=== PATIENT | female | born 1960 | race Caucasian/White ===

== ENCOUNTER → 2018-08-21 | Outpatient (CLI) | payer MEDICAID, SELFPAY ==
[2018-08-21 10:27] VITALS: BMI 26.4
[2018-08-24 16:21] LABS: HPV APTIMA, High Risk Negative (Negative)
== END | disposition home or self-care (01) ==
LOC: LABSPEC 12:36
PROVIDERS: Referring Provider Obstetrics & Gynecology; Visit Provider Obstetrics & Gynecology
DX: Z12.4 Encounter for screening for malignant neoplasm of cervix (principal)
CPT/HCPCS: 87624; 88175; G0145

== ENCOUNTER → 2019-11-26 13:49 | Outpatient (CLI) | payer MEDICAID, SELFPAY ==
[2018-08-21 10:27] VITALS: BMI 26.4
[2019-11-26 13:04] VITALS: BMI 26.4
--- NOTE | 2019-11-26 13:55 | BI_ITS ---
MAMMOGRAPHY - BILATERAL SCREENING REASON FOR EXAM: Female, 59 years old. Routine annual screening examination. PERTINENT HISTORY: Non-contributory. TECHNIQUE: Digital bilateral breast annette (3D mammographic acquisition) in the CC and MLO projections. 2-D mediolateral oblique (MLO) and craniocaudad (CC) views of both breasts were obtained. CAD: Full Field Digital Mammography with Computer Added Detection was performed. COMPARISON: Comparison is made with prior outside examination dated 06/07/2016. FINDINGS: Breast Composition: The breasts are heterogeneously dense, which may obscure small masses. There are no dominant masses or suspicious calcifications. Stable small benign-appearing bilateral axillary lymph nodes. No other significant abnormalities are identified. There has been no significant change since the prior study. BI/SCREEN MAMM (CAD) W/ANNETTE BILAT IMPRESSION: Stable bilateral screening mammogram. Yearly follow-up mammogram recommended. (A) ASSESSMENT CATEGORY: BIRADS Category 2: Benign. A letter regarding these results will be sent to the patient by the facility within 30 days. Approximately 10% of breast cancers are not detected by mammography. A normal mammogram should not delay biopsy of a clinically suspicious abnormality. [id number] Electronically Signed: Dev Matias, at 8:38 EDT , Service support ,
== END ==
PROVIDERS: Referring Provider Obstetrics & Gynecology; Visit Provider Obstetrics & Gynecology
DX: Z12.31 Encounter for screening mammogram for malignant neoplasm of breast (principal)
CPT/HCPCS: 77063; 77067

== ENCOUNTER → 2021-04-02 12:35 | Outpatient (CLI) | payer MEDICAID, SELFPAY ==
[2019-11-26 13:04] VITALS: BMI 26.4
--- NOTE | 2021-04-02 12:38 | BI_ITS ---
MAMMOGRAPHY - BILATERAL SCREENING REASON FOR EXAM: Female, 60 years old. Routine annual screening examination. PERTINENT HISTORY: Non-contributory. TECHNIQUE: Digital bilateral breast annette (3D mammographic acquisition) in the CC and MLO projections. 2-D mediolateral oblique (MLO) and craniocaudad (CC) views of both breasts were obtained. CAD: Full Field Digital Mammography with Computer Added Detection was performed. COMPARISON: Comparison is made with prior study 11/26/2019. FINDINGS: Breast Composition: There are scattered areas of fibroglandular density. There are no dominant masses or suspicious calcifications. No other significant abnormalities are identified. There has been no significant change since the prior study. BI/SCRN MAMM (CAD)W/ANNETTE BILAT IMPRESSION: Stable bilateral screening mammogram. Yearly follow-up mammogram recommended. (A) ASSESSMENT CATEGORY: BIRADS Category 1: Negative. A letter regarding these results will be sent to the patient by the facility within 30 days. Approximately 10% of breast cancers are not detected by mammography. A normal mammogram should not delay biopsy of a clinically suspicious abnormality. [id number] Electronically Signed: Dev Matias MD at 13:17 EST , Service support ,
[2021-04-02 14:09] LABS: Absolute Lymphocyte Count 1.63 X10^3/uL (0.83-4.51); Absolute Neutrophil Count 3.5 X10^3/uL (2.0-7.7); Basophil# 0.07 X10^3/uL; Basophil% 1.2 % (0-1); Eosinophil# 0.12 X10^3/uL; Hematocrit 39.8 % (37-47); Hemoglobin 12.9 g/dL (12.0-15.0); Lymphocyte # 1.63 X10^3/ul (0.83-4.51); Lymphocyte % 27.2 % (19-41); Mean Corp Hgb Conc 32.4 g/dL (32-36); Mean Corpuscular Hgb 28.9 pg (27.0-32.0); Mean Corpuscular Volume 89.2 fL (81-99); Mean Platelet Vol. 10.2 fl (6.2-12.0); Monocyte# 0.63 X10^3/uL; Monocyte% 10.5 % (0-10); NRBC Flagged by Analyzer 0 % (0-5); Neutrophil # 3.52 X10^3/uL (2.7-7.7); Neutrophil % 58.8 % (47-70); Platelet Count 272 K/mm3 (150-450); RBC Distribution Width CV 12.7 % (11.6-14.6); RBC Distribution Width SD 41.7 fl (35.1-43.9); Red Blood Count 4.46 M/mm3 (4.2-5.4)
[2021-04-02 14:33] LABS: AST(SGOT) 16 U/L (15-37); Alanine Aminotransfer ALT/SGPT 22 U/L (13-56); Albumin, Serum 3.8 g/dL (3.2-5.0); Alkaline Phosphatase 75 U/L (45-117); Anion Gap 3 (5-15); BUN 15 mg/dL (7-18); BUN/Creat Ratio 15.6 RATIO (10-20); Calcium,Total 9.2 mg/dL (8.5-10.1); Chloride 107 mmol/L (98-107); Cholesterol 250 mg/dL (200); Creatinine, Serum 0.96 mg/dL (0.55-1.02); EST Glomerular Filtration Rate 63 mL/min (>60); Est Glom Filt Rate - Afr Amer 77 mL/min (>60); Glucose 102 mg/dL (74-106); High Density Lipoprotein 47 mg/dL; Potassium 3.4 mmol/L (3.5-5.1); Protein, Total 7.8 g/dL (6.4-8.2); Sodium Level 139 mmol/L (136-145); Thyroid Stim Hormone (TSH) 1.44 uIU/mL (0.358-3.74); Triglycerides 166 mg/dL; Very Low Density Lipoprotein 33 mg/dL (5-40)
[2021-04-02 14:44] LABS: Vitamin D,25 Hydroxy 51.6 ng/mL
== END ==
PROVIDERS: Referring Provider Obstetrics & Gynecology; Visit Provider Obstetrics & Gynecology
DX: Z01.419 Encounter for gynecological examination (general) (routine) without abnormal findings (principal); Z12.31 Encounter for screening mammogram for malignant neoplasm of breast
CPT/HCPCS: 36415; 77063; 77067; 80053; 80061; 82306; 84443; 85025

== ENCOUNTER → 2022-06-03 | Outpatient (CLI) | payer MEDICAID, SELFPAY ==
--- NOTE | 2022-06-03 09:13 | BI_ITS ---
MAMMOGRAPHY - BILATERAL SCREENING REASON FOR EXAM: Female, 61 years old. Routine annual screening examination. PERTINENT HISTORY: Non-contributory. TECHNIQUE: Digital bilateral breast annette (3D mammographic acquisition) in the CC and MLO projections. 2-D mediolateral oblique (MLO) and craniocaudad (CC) views of both breasts were obtained. CAD: Full Field Digital Mammography with Computer Added Detection was performed. COMPARISON: Comparison is made with prior study of 01/01/2021 and 11/26/2019. FINDINGS: Breast Composition: There are scattered areas of fibroglandular density. There are no dominant masses or suspicious calcifications. There is a 6.1 mm x 5.3 mm well-defined nodule in the slightly upper medial aspect of the right breast. Correlation with ultrasound is recommended. Stable small benign-appearing bilateral axillary No other significant abnormalities are identified. BI/SCRN MAMM (CAD)W/ANNETTE BILAT IMPRESSION: 6.1 mm x 5.3 mm well-defined nodule in the slightly upper medial aspect of the right breast. Correlation with ultrasound is recommended. ASSESSMENT CATEGORY: BIRADS Category 0: Incomplete. Need additional imaging evaluation. A letter regarding these results will be sent to the patient by the facility within 30 days. Approximately 10% of breast cancers are not detected by mammography. A normal mammogram should not delay biopsy of a clinically suspicious abnormality. [id number] Electronically Signed: Dev Matias MD at 11:53 EST ,
[2022-06-03 09:35] LABS: Hemoglobin A1c 5.4 % (3.8-5.6)
[2022-06-03 09:54] LABS: Vitamin B12 1103 pg/mL (211-911)
[2022-06-03 09:55] LABS: Anion Gap 7 (5-15); BUN 23 mg/dL (7-18); BUN/Creat Ratio 21.5 RATIO (10-20); Calcium,Total 8.7 mg/dL (8.5-10.1); Chloride 103 mmol/L (98-107); Cholesterol 209 mg/dL (200); Creatinine, Serum 1.07 mg/dL (0.55-1.02); EST Glomerular Filtration Rate 56 mL/min (>60); Est Glom Filt Rate - Afr Amer 67 mL/min (>60); Ferritin 65 ng/mL (8-252); Glucose 102 mg/dL (74-106); High Density Lipoprotein 53 mg/dL; Iron 40 ug/dL (50-170); Iron Binding Capacity,Total 347 ug/dL (250-450); PERCENT IRON SATURATION 11.5 % (15.0-55.0); Potassium 3.7 mmol/L (3.5-5.1); Sodium Level 139 mmol/L (136-145); Triglycerides 145 mg/dL; Very Low Density Lipoprotein 29 mg/dL (5-40)
== END | disposition home or self-care (01) ==
PROVIDERS: Referring Provider Obstetrics & Gynecology; Visit Provider Obstetrics & Gynecology
DX: Z13.21 Encounter for screening for nutritional disorder (principal); N89.8 Other specified noninflammatory disorders of vagina; R25.2 Cramp and spasm; Z13.220 Encounter for screening for lipoid disorders; E66.9 Obesity, unspecified; N63.10 Unspecified lump in the right breast, unspecified quadrant
CPT/HCPCS: 36415; 77063; 77067; 80048; 80061; 82607; 82728; 83036; 83540; 83550; 87070; 87205

== ENCOUNTER → 2022-06-17 | Outpatient (CLI) | payer MEDICAID, SELFPAY ==
--- NOTE | 2022-06-17 10:51 | US_ITS ---
STUDY: ULTRASOUND BREAST - RIGHT REASON FOR EXAM: Female, 61 years old. Abnormal screening mammogram. TECHNIQUE: Axial and longitudinal images of the RIGHT breast were performed with a high resolution ultrasound transducer. # OF IMAGES: 34 COMPARISON: Comparison is made with prior study dated June 03, 2022. FINDINGS: RIGHT Breast: The medial aspect of the right breast was examined with ultrasound. There is evidence of retroareolar ductal dilatation. US/Breast Limited Unilateral IMPRESSION: Retroareolar ductal dilatation. ASSESSMENT CATEGORY: BIRADS Category 2: Benign. A letter regarding these results will be sent to the patient by the facility within 30 days. Electronically Signed: Dev Matias MD at 12:31 EST ,
== END | disposition home or self-care (01) ==
PROVIDERS: Visit Provider Obstetrics & Gynecology
DX: R92.8 Other abnormal and inconclusive findings on diagnostic imaging of breast (principal); N63.10 Unspecified lump in the right breast, unspecified quadrant
CPT/HCPCS: 76642

== ENCOUNTER → 2023-02-10 | Outpatient (CLI) | payer MEDICAID, SELFPAY ==
--- NOTE | 2023-02-10 15:07 | US_ITS ---
EXAM: US PELVIS TRANSABDOMINAL AND TRANSVAGINAL, COMPLETE CLINICAL INDICATION: PMB TECHNIQUE: Transabdominal and transvaginal pelvic ultrasound was performed with grayscale and color Doppler imaging. Transvaginal imaging was used for better evaluation of the endometrium and adnexa. COMPARISON: No relevant prior studies available. FINDINGS: UTERUS/CERVIX: The uterus measures 9.0 x 4.3 x 4.7 cm. The endometrium measures 4 mm. There is a trace amount of fluid within the endometrium. Anteverted. There is no uterine mass. RIGHT OVARY: The right ovary measures 2.3 x 2.0 x 2.0 cm. Blood flow is present in the right ovary. LEFT OVARY: The left ovary measures 2.2 x 1.7 x 1.4 cm. Blood flow is present in the left ovary. FREE FLUID: None. BLADDER: Unremarkable as visualized. Wall is normal thickness for degree of distention. US/Pelvic w/ Transvaginal IMPRESSION: Trace amount of fluid in the endometrium. No other acute abnormalities are identified. Electronically Signed: Roderick Rogers MD at 0:01 EDT ,
== END | disposition home or self-care (01) ==
LOC: US 15:07
PROVIDERS: PCP Internal Medicine; Referring Provider Obstetrics & Gynecology; Visit Provider Obstetrics & Gynecology
DX: N95.0 Postmenopausal bleeding (principal)
CPT/HCPCS: 76830; 76856

== ENCOUNTER → 2023-03-21 | Outpatient (CLI) | payer MEDICAID, SELFPAY ==
--- NOTE | 2023-03-21 | EMB_PTH ---
PATIENT: ARMANDO LONGO LOC: [facility] U#:[id number] AGE/SX: 62/F ROOM: RE03/21/[address]: MISHA Rivas : 1960 BED: DIS: 03/21/2023 SPEC #: [id number] RECD: 03/21/23 13:00 STATUS: ASHLEY REMaddi #: [id number] STACI: 03/21/23 00:[address]: Fernanda Kohli NP DEPT: SURGICAL PATHOLOGY RECD BY: Anderson Hernandez ENTERED: 03/21/23 13:04 SP TYPE: ENDOM BX/C BUD DR: Dr. Madeline Waters MD Tissues: A - Endometrium, NOS B - Endocervical Procedures: Surgery Specimen Level IV HEADER OPERATION: Endometrial biopsy / cervical polypectomy PRE-OP DIAGNOSIS: Fluid in endometrial canal/cervical polyp TISSUE SUBMITTED: A - Endometrial lining, B - Cervical polyp MICROSCOPIC DIAGNOSIS A. Endometrial biopsy: Proliferative endometrium. B. Cervical polyp, polypectomy: Inflamed benign ectocervical polyp. ALETHA:nona 03/22/2023 MICROSCOPIC DESCRIPTION Slides are reviewed. GROSS DESCRIPTION A - Received in fixative is one container labeled with the patient's name and designated endometrial lining. The specimen consists of multiple irregular fragments of pink mucoid tissue that in aggregate measure 3.0 x 2.5 x 0.2 cm. The specimen is totally submitted in one cassette. B - Received in fixative is one container labeled with the patient's name and designated cervical polyp. The specimen consists of a piece of harrell-pink polyp measuring 0.6 x 0.6 x 0.2 cm. The specimen is totally submitted in one cassette. / ALETHA:nona 03/21/2023 TC:5 [facility]: [id number] x2
== END | disposition home or self-care (01) ==
LOC: LABSPEC 11:32
PROVIDERS: PCP Internal Medicine; Referring Provider Nurse Practitioner Women's Health; Visit Provider Nurse Practitioner Women's Health
DX: N84.1 Polyp of cervix uteri (principal)
CPT/HCPCS: 88305

== ENCOUNTER → 2023-08-01 | Outpatient (CLI) | payer MEDICAID, SELFPAY ==
[2023-08-03 15:08] LABS: HPV APTIMA, High Risk Negative (Negative)
== END | disposition home or self-care (01) ==
LOC: LABSPEC 11:48
PROVIDERS: PCP Internal Medicine; Referring Provider Obstetrics & Gynecology; Visit Provider Obstetrics & Gynecology
DX: Z12.4 Encounter for screening for malignant neoplasm of cervix (principal); Z78.0 Asymptomatic menopausal state
CPT/HCPCS: 87624; 88175; G0145

== ENCOUNTER → 2023-09-08 | Outpatient (CLI) | payer MEDICAID, SELFPAY ==
--- NOTE | 2023-09-08 12:20 | BI_ITS ---
MAMMOGRAPHY - BILATERAL SCREENING 3-D TOMOSYNTHESIS REASON FOR EXAM: Female, 62 years old. breast cancer screening PERTINENT HISTORY: No significant family history. TECHNIQUE: 2-D mammograms and 3-D Tomosynthesis of the breast (s) were performed. CAD was performed. COMPARISON: 06/03/2022 FINDINGS: The breast composition is composed of scattered fibroglandular density. Scattered benign calcifications are seen. No dense spiculated masses or suspicious microcalcifications are identified. No architectural distortion is identified. There is no skin thickening or retraction. There has been no significant change since the prior study. BI/SCRN MAMM (CAD)W/ANNETTE BILAT IMPRESSION: No mammographic signs of malignancy. Routine yearly mammograms recommended. ASSESSMENT CATEGORY: BIRADS Category 1: Negative. A letter regarding these results will be sent to the patient by the facility within 30 days. FOLLOW UP RECOMMENDATION: Yearly follow up mammogram recommended. (A) Approximately 10% of breast cancers are not detected by mammography. A normal mammogram should not delay biopsy of a clinically suspicious abnormality. Electronically Signed: Daquan Ng MD at 17:39 EDT ,
== END | disposition home or self-care (01) ==
LOC: OPBI 12:20
PROVIDERS: PCP Internal Medicine; Referring Provider Obstetrics & Gynecology; Visit Provider Obstetrics & Gynecology
DX: Z12.31 Encounter for screening mammogram for malignant neoplasm of breast (principal)
CPT/HCPCS: 77063; 77067

== ENCOUNTER → 2024-09-25 | Outpatient (CLI) | payer MEDICAID, SELFPAY ==
--- NOTE | 2024-09-25 15:39 | BI_ITS ---
EXAM: SCRN MAMM (CAD)W/ANNETTE BILAT DATE: 09/25/2024 CLINICAL HISTORY: F, Age 63 y/o , SCREENING MAMMOGRAM BREAST CANCER RISK ASSESSMENT: Na TECHNIQUE: Bilateral screening digital breast tomosynthesis with 2D and 3D images. Computer aided detection. COMPARISON: Prior exam(s) were compared FINDINGS: TISSUE DENSITY: The breast tissue is heterogenously dense, which may obscure small masses. Bilateral Breast Mammographic Findings: No suspicious masses, calcifications or other abnormalities are identified. BI/SCRN MAMM (CAD)W/ANNETTE BILAT IMPRESSION: OVERALL FINAL ASSESSMENT: BIRADS 1 NEGATIVE RECOMMENDATION: Routine annual follow-up in 1 Year A letter with findings and recommendations will be mailed to the patient. Reading Location: [id number]
== END | disposition home or self-care (01) ==
PROVIDERS: PCP Internal Medicine; Referring Provider Obstetrics & Gynecology; Visit Provider Obstetrics & Gynecology
DX: Z12.31 Encounter for screening mammogram for malignant neoplasm of breast (principal)
CPT/HCPCS: 77063; 77067

== ENCOUNTER → 2025-01-14 | Outpatient (CLI) | payer MEDICAID, SELFPAY ==
--- NOTE | 2025-01-14 | EMB_PTH ---
PATIENT: ARMANDO LONGO LOC: [facility] U#:[id number] AGE/SX: 64/F ROOM: RE01/14/[address]: Dr. Suki Flores MD : 1960 BED: DIS: 01/14/2025 SPEC #: [id number] RECD: 01/14/25 12:22 STATUS: ASHLEY REMaddi #: [id number] STACI: 01/14/25 00:[address]: Suki Flores DEPT: SURGICAL PATHOLOGY RECD BY: Rene Alberto ENTERED: 01/14/25 13:19 SP TYPE: ENDOM BX/C BUD DR: Dr. Madeline Waters MD Tissues: A - Endometrium, NOS Procedures: Surgery Specimen Level IV HEADER OPERATION: Endometrial biopsy PRE-OP DIAGNOSIS: Post menopausal bleeding TISSUE SUBMITTED: A- Endometrial tissue MICROSCOPIC DIAGNOSIS A. Endometrium, biopsy: * Fragments of proliferative endometrium. MICROSCOPIC DESCRIPTION Slides are reviewed. GROSS DESCRIPTION A. Received in formalin labeled the patient's name and date of is a 1.9 x 0.8 x 0.1 cm aggregate of mucoid material admixed with flecks of red apparent tissue. Entirely submitted in 1 cassette. Entirety of the specimen entirety of the specimen may not survive processing. [place] 01/14/2025 CPT:28399
--- NOTE | 2025-01-14 | EMB_PTH ---
PATIENT: ARMANDO LONGO LOC: [facility] U#:[id number] AGE/SX: 64/F ROOM: RE01/14/[address]: Dr. Suki Flores MD : 1960 BED: DIS: 01/14/2025 SPEC #: [id number] RECD: 01/14/25 12:22 STATUS: ASHLEY REMaddi #: [id number] STACI: 01/14/25 00:[address]: Suki Flores DEPT: SURGICAL PATHOLOGY RECD BY: Rene Alberto ENTERED: 01/14/25 13:19 SP TYPE: ENDOM BX/C BUD DR: Dr. Madeline Waters MD Tissues: A - Endometrium, NOS Procedures: Surgery Specimen Level IV HEADER OPERATION: Endometrial biopsy PRE-OP DIAGNOSIS: Post menopausal bleeding TISSUE SUBMITTED: A- Endometrial tissue MICROSCOPIC DIAGNOSIS A. Endometrium, biopsy: * Fragments of proliferative endometrium. MICROSCOPIC DESCRIPTION Slides are reviewed. GROSS DESCRIPTION A. Received in formalin labeled the patient's name and date of is a 1.9 x 0.8 x 0.1 cm aggregate of mucoid material admixed with flecks of red apparent tissue. Entirely submitted in 1 cassette. Entirety of the specimen entirety of the specimen may not survive processing. AK 01/14/2025 CPT:14842
[2025-01-14 12:29] LABS: Hematocrit 38.6 % (37-47); Hemoglobin 12.7 g/dL (12.0-15.0); Immature Granulocytes Count 0.030 X10^3/uL (0.0-0.0); Mean Corp Hgb Conc 32.9 g/dL (32-36); Mean Corpuscular Volume 91.7 fL (81-99); Mean Platelet Vol. 11.0 fl (6.2-12.0); NRBC Flagged by Analyzer 0 % (0-5); Platelet Count 230 K/mm3 (150-450); RBC Distribution Width CV 12.9 % (11.6-14.6); RBC Distribution Width SD 42.8 fl (35.1-43.9); Red Blood Count 4.21 M/mm3 (4.2-5.4); White Blood Count 5.7 K/mm3 (4.4-11.0)
[2025-01-14 13:33] LABS: Cholesterol 170 mg/dL (<=200); Low Density Lipoprotein Calc. 99 mg/dL; Triglycerides 90 mg/dL; Very Low Density Lipoprotein 18 mg/dL (5-40); cholesterol:hdl ratio screen 3.19
== END | disposition home or self-care (01) ==
PROVIDERS: PCP Internal Medicine; Referring Provider Obstetrics & Gynecology; Visit Provider Obstetrics & Gynecology
DX: N95.0 Postmenopausal bleeding (principal); R25.2 Cramp and spasm; N95.1 Menopausal and female climacteric states; Z13.29 Encounter for screening for other suspected endocrine disorder; Z13.1 Encounter for screening for diabetes mellitus; Z13.220 Encounter for screening for lipoid disorders
CPT/HCPCS: 36415; 80061; 83036; 84443; 85025; 88305

== ENCOUNTER → 2025-02-01 | Outpatient (CLI) | payer MEDICAID, SELFPAY ==
--- NOTE | 2025-02-01 16:00 | US_ITS ---
PROCEDURE: PELVIC W/ TRANSVAGINAL 02/01/2025 REASON FOR EXAM: PMB TECHNIQUE: Procedure Code: USPELTVAG Modality: US Procedure: PELVIC W/ TRANSVAGINAL COMPARISON: None FINDINGS: Measurements: Uterus: 8.7 x 5.1 x 4.0 with a volume of 94 mL Endometrial Thickness: 5 mm Right Ovary: Not visualized due to bowel gas obscuring this region. No abnormal right adnexal masses are noted. Left Ovary: 3.2 x 1.6 x 1.6 with a volume of 4.3 mL. Uterus: There is a hypoechoic mass within the myometrium measuring 7 x 6 x 6 mm. This is most compatible with a uterine fibroid. There is no IUD. Size, contour and echogenicity otherwise are within normal limits. Nabothian cysts are seen within the cervix. Endometrium: Endometrium measures 5 mm. It is hyperechoic. Right ovary: Not visualized due to bowel gas. No abnormal right adnexal masses are noted. Left ovary: Size, contour and echogenicity are within normal limits. No ovarian masses are noted. There is blood flow within the ovary. Cul-de-sac: There is no free fluid in the cul-de-sac. Other: Urinary bladder measures 7.0 x 4.6 x 3.9 cm. Bladder wall thickness measures 2 mm. Urinary bladder volume measures 66 mL. There are no filling defects or masses seen within the urinary bladder. US/Pelvic w/ Transvaginal IMPRESSION: 1. There appears to be a uterine fibroid within the myometrium. 2. Endometrial stripe thickness measures 5 mm which is within normal limits. 3. Normal appearance to the left ovary. 4. Right ovary not visualized due to bowel gas. RECOMMENDATION: The patient has not had a recent Pap smear and physical exam, a nd may be of benefit to have this performed. If the bleeding continues, endometrial biopsy and/or surgical consult is also chcio mmended. Reading Location: [id number]
--- NOTE | 2025-02-01 16:00 | US_ITS ---
PROCEDURE: PELVIC W/ TRANSVAGINAL 02/01/2025 REASON FOR EXAM: PMB TECHNIQUE: Procedure Code: USPELTVAG Modality: US Procedure: PELVIC W/ TRANSVAGINAL COMPARISON: None FINDINGS: Measurements: Uterus: 8.7 x 5.1 x 4.0 with a volume of 94 mL Endometrial Thickness: 5 mm Right Ovary: Not visualized due to bowel gas obscuring this region. No abnormal right adnexal masses are noted. Left Ovary: 3.2 x 1.6 x 1.6 with a volume of 4.3 mL. Uterus: There is a hypoechoic mass within the myometrium measuring 7 x 6 x 6 mm. This is most compatible with a uterine fibroid. There is no IUD. Size, contour and echogenicity otherwise are within normal limits. Nabothian cysts are seen within the cervix. Endometrium: Endometrium measures 5 mm. It is hyperechoic. Right ovary: Not visualized due to bowel gas. No abnormal right adnexal masses are noted. Left ovary: Size, contour and echogenicity are within normal limits. No ovarian masses are noted. There is blood flow within the ovary. Cul-de-sac: There is no free fluid in the cul-de-sac. Other: Urinary bladder measures 7.0 x 4.6 x 3.9 cm. Bladder wall thickness measures 2 mm. Urinary bladder volume measures 66 mL. There are no filling defects or masses seen within the urinary bladder. US/Pelvic w/ Transvaginal IMPRESSION: 1. There appears to be a uterine fibroid within the myometrium. 2. Endometrial stripe thickness measures 5 mm which is within normal limits. 3. Normal appearance to the left ovary. 4. Right ovary not visualized due to bowel gas. RECOMMENDATION: The patient has not had a recent Pap smear and physical exam, a nd may be of benefit to have this performed. If the bleeding continues, endometrial biopsy and/or surgical consult is also chico mmended. Reading Location: [id number]
--- OUTSIDE RECORDS SUMMARY | 2025-02-01 16:08 | XMS RPT_ITS | CCD ---
Author Organization [facility] Care Team Providers Care Dietetic Technician Name Role Phone Free, Text Entry Unavailable Unavailable Lamont, Bailey Unavailable Unavailable Care Physician, No Primary Primary Care Provider Unavailable Care Physician, No Primary Referring Provider Un available Dr. Suki Flores Attending Provider [phone] Joe Waters MD Primary Care Provider JIMI OLIVERA Attending Unavailable JOE WATERS Primary Care Unavailable MICHAEL, LUCIO P Referring Unavailable JOE WATERS Primary Care Unavailable MICHAEL, LUCIO P Referring Unavailable MICHAEL, LUCIO P Attending Unavailable LAINE HAYDEN Attending Unavailable JOE WATERS Primary Care Unavailable MICHAEL, LUCIO P Referring Unavailable MICHAEL, LUCIO P Attending Unavailable Dr. Joe Waters Primary Care Provider Dr. Joe Waters Referring Provider Kamilla MLT, MLT-C Fernanda Attending Provider [phone] Dr. Joe Waters Primary Care Provider Dr. Joe Waters Referring Provider Dr. Suki Flores Attending Provider [phone] Dr. Joe Waters MD Primary Care Provider Dr. Joe Waters MD Referring Provider [phone] Dr. Suki Flores MD Attending Provider Dr. Suki Flores MD Referring Provider Dr. Joe Waters MD Primary Care Physician Dr. Suki Flores MD Attending Physician Evelin OCAMPO, Dr. Joe Muse Referring Provider [phone] Kamilla MLT-C, Fernanda Attending Physician [phone] Suki Flores Attending Unavailable Suki Flores Referring Unavailable Talampas, Joe D Primary Care Unavailable Kamilla MLT, Fernanda Attending Unavailable Kamilla MLT, Fernanda Referring Unavailable Talampas, Joe D Primary Care Unavailable Suki Flores Attending Unavailable Suki Flores Referring Unavailable Talampas, Joe D Primary Care Unavailable Kamilla MLT, Fernanda Attending Unavailable Talampas, Joe D Primary Care Unavailable Talampas, Joe D Referring Unavailable Talampas, Joe D Referring Unavailable Suki Flores Attending Unavailable Sunilampandrew, Joe D Primary Care Unavailable Allergies Allergy Classification Reported Allergen(s) Allergy Type Date of Onset Reaction(s) Facility (9 sources) Codeine; Translations: [CODEINE] Drug Allergy 5 Shortness of Breath, Other: See Comments [facility] (1 source) Sulfonamides (Antibiotic) Hives/Urticaria [facility] (7 sources) Sulfonamides (Antibiotic); Translations: [SULFA (SULFONAMIDE ANTIBIOTICS)] Allergy to substance 5 Unknown [facility] (1 source) Sulfonamides (Antibiotic) Drug Allergy 5 Other: See Comments, Hives [facility] Work Phone: (2 sources) traMADol; Translations: [TRAMADOL] Drug Allergy 3 Itching [facility] Work Phone: (1 source) Codeine Drug Allergy 5 [facility] (1 source) Sulfonamides (Antibiotic) Drug allergy (disorder) 5 [facility] Medications Current Medications Medication Drug Class(es) Dates Sig (Normalized) Sig (Original) amoxicillin 875 mg / clavulanate 125 mg oral tablet (1 source) Penicillin-class Antibacterial Start: 02-13-2021 End: 02-22-2021 take 1 tablet by mouth twice daily at mealtime amoxicillin-clavu lanate 875 mg-125 mg oral tablet ; 1 tab(s) orally 2 times a day Quantity: 20 Refills: 0 Ordered: 13-Feb-2021 Bailey Miguel Start: 13-Feb-2021 End: 22-Feb-2021 Generic Substitution Allowed Comments: Finish all this medication unless otherwise directed by prescriber.Take with food or milk. Comment on above: Finish all this medi cation unless otherwise directed by prescriber.Take with food or milk. calcium carbonate 1500 mg / cholecalciferol 500 unt oral capsule (7 sources) Vitamin D Start: 04-02-2021 Start: 04-02-2021 Calcium Carbon ate-Vitamin D3 (Calcium 600 With Vitamin D3) 600 mg(1,500mg) -500 unit capsule Active CAP PO April 02, 2021 1:00am Start: 01-27-2009 calcium carbon ate/vitamin d3(CALCIUM 600 + D(3) 600 MG-125 UNIT TAB) Take one(1) tablet twice daily. 0 01/27/2009 Active Comment on above: Take one(1) tablet t wice daily. fluticasone propionate 0.05 mg/actuat metered dose nasal spray (1 source) Corticosteroid Start: 02-14-20 End: 02-23-20 21 take 1-2 spray(s) nasal route once daily Flonase 50 mcg/inh nasal spray ; 1-2 spray(s) in each nostril once a day Quantity: 1 Refills: 0 Ordered: 13-Feb-2021 Bailey Miguel Start: 13-Feb-2021 End: 22-Feb-2021 Generic Substitution Allowed Comments: For the nose.It is very important that you take or use this exactly as directed. Do not skip doses or discontinue unless directed by your doctor. Comment on above: For the nose.It is v dawna important that you take or use this exactly as directed. Do not skip doses or discontinue unless directed by your doctor. multivitamin,tx-iron -minerals (4 sources) Start: 11-26-19 take 1 tablet by mouth once daily multivitamin,tx-iron -minerals Active 1 TABLET PO DAILY November 26, 2019 12:00am Start: 11-26-2019 take 1 tablet by drew th once daily multivitamin,mp-dqaz-oqfbgilf Active 1 T ABLET PO DAILY November 25, 2019 11:00pm Multivitamin,Gn-Cyjn-Vnmbevk s (Complete Multivitamin) tablet (2 sources) Start: 11-26-2019 Start: 11-26-2019 Multivitamin,T u-Vcoy-Sgreyzeb (Complete Multivitamin) tablet Active 1 {tbl} PO DAILY November 26, 2019 12:00am Blevins-3 Fatty Acids (Fish Oi l Concentrate) 1,000 mg capsule (6 sources) Start: 08-21-2018 take 1 capsule by mo ut once daily Start: 08-21-2018 take 1 capsule by mo uth once daily Blevins-3 Fatty Acids (Fish Oil Concentrate) 1,000 mg capsule Active 1000 mg PO DAILY August 21, 2018 12:00am Start: 08-21-2018 take 1 capsule by mo uth once daily Blevins-3 Fatty Acids (Fish Oil Concentrate) 1,000 mg capsule Active 1000 MG PO DAILY August 21, 2018 12:00am Start: 08-21-2018 take 1 capsule by mo uth once daily Blevins-3 Fatty Acids (Fish Oil Concentrate) 1,000 mg capsule Active 1000 MG PO DAILY August 20, 2018 11:00pm Completed/Discontinued Medications Medication Drug Class(es) Dates Sig (Normalized) Sig (Original) benzonatate 100 mg oral capsule (1 source) Non-narcotic Antitussive Start: 06-17-2019 End: 06-26-2019 take 1 capsule by mouth three times daily benzonatate 100 mg oral capsule ; 1 cap(s) orally 3 times a day Quantity: 30 Refills: 0 Ordered: 17-Jun-2019 Thong Grimaldo Start: 17-Jun-2019 End: 26-Jun-2019 Status: Other Generic Substitution Allowed Comments: May cause drowsiness. Alcohol may intensify this effect. Use care when operating dangerous machinery.Swallow whole. Do not crush. Comment on above: May cause drowsiness . Alcohol may intensify this effect. Use care when operating dangerous machinery.Swallow whole. Do not crush. estradiol 0.5 mg oral tablet (20 sources) Estrogen Start: 08-03-2024 Start: 09-15-2023 End: 08-03-2024 Start: 03-22-2023 End: 08-03-2024 take 1 tablet by mouth once daily Estradiol 0.5 mg tablet Discontinued 0.5 mg PO DAILY 90 3 August 03, 2024 1:58pm August 03, 2024 2:06pm Start: 08-31-2022 estradiol (CLI CRISTOBAL) 0.0375 mg/24 hr APPLY 1 PATCH EVERY 7 DAYS 0 08/31/2022 Active Start: 06-03-2022 End: 03-22-2023 Estradiol 0.0375 mg/24 hr pa tch semiweekly Discontinued 1 NMA TD TWICE A WEEK 8 June 03, 2022 1:00am March 22, 2023 2:10pm apply 1 patch for 3 days alternating with 1 patch for 4 days each week for 3 wks per 4-wk cycle Start: 06-03-2022 End: 03-22-2023 Estradiol Discontinued 1 PAT CH TD TWICE A WEEK June 03, 2022 1:00am March 22, 2023 2:10pm apply 1 patch for 3 days alternating with 1 patch for 4 days each week for 3 wks per 4-wk cycle Start: 08-21-2018 End: 06-03-2022 Estradiol (Estrace) 0.01 % ( 0.1 mg/gram) cream Discontinued 1 g VAGINAL TWICE A WEEK 42.5 3 April 03, 2021 11:39am June 03, 2022 9:56am Comment on above: APPLY 1 PATCH EVERY 7 DAYS fish oil/omega-3 fatty acids(FISH OIL OMEGA 3-6-9 300 MG-1,000 MG CAP, DELAYED RELEASE) (1 source) Start: fish oil/omega-3 fatty acids(FISH OIL OMEGA 3-6-9 300 MG-1,000 MG CAP, DELAYED RELEASE) fluconazole 150 mg oral tablet (20 sources) Azole Antifungal Start: End: take 1 tablet by mouth once as needed Fluconazole 150 mg tablet Discontinued 150 mg PO ONCE as needed for itch 1 0 September 15, 2023 9:35am August 03, 2024 2:06pm Start: 02-13-2021 End: 02-13-2021 take 1 tablet by mouth once Diflucan 150 mg oral table t ; 1 tab(s) orally once at first sign of yeast infection Quantity: 1 Refills: 0 Ordered: 13-Feb-2021 Bailey Miguel Start: 13-Feb-2021 End: 13-Feb-2021 Generic Substitution Allowed Comments: Do not take this drug if you are .Finish all this medication unless otherwise directed by prescriber. Start: 09-04-2018 End: 04-02-2021 Fluconazole (Diflucan) 150 m g tablet Discontinued 150 mg PO .COMPLEX 3 0 November 26, 2019 12:00am April 02, 2021 1:59pm 150 mg PO now and in 72 hours Comment on above: Do not take this dimitri g if you are .Finish all this medication unless otherwise directed by prescriber. multivitamins(DAILY MULTIVITAMIN TAB) (1 source) Start: 01-28-20 multivitamins(DAILY MULTIVITAMIN TAB) Take one(1) tablet daily. 0 01/27/2009 Active Comment on above: Take one(1) tablet d aily. polyethylene glycol 3350 723792 mg / potassium chloride 2970 mg / sodium bicarbonate 6740 mg / sodium chloride 5860 mg / sodium sulfate 80700 mg powder for oral solution (1 source) Osmotic Laxative Start: 09-03-19 End: 10-28-19 take 4000 mL by mouth once GAVILYTE-G 236-22.74-6.74 -5.86 gram suspension TAKE 4000 ML BY MOUTH ONE TIME ONLY FOR 1 DOSE. REFER TO PRINTED PREP INSTRUCTIONS FROM PROVIDER 0 09/02/2022 10/27/2022 Discontinued Comment on above: TAKE 4000 ML BY MOUT H ONE TIME ONLY FOR 1 DOSE. REFER TO PRINTED PREP INSTRUCTIONS FROM PROVIDER progesterone 100 mg oral capsule (16 sources) Progesterone Start: 06-03-19 End: 08-04-19 take 1 capsule by mouth once daily Progesterone Micronized (Prometrium) 100 mg capsule Discontinued 100 mg PO .COMPLEX 90 4 March 22, 2023 2:10pm August 01, 2023 10:13am 100 mg orally take 2 tablets nightly for 10 days then 1 nightly; thiamine 100 mg oral tablet (1 source) take 1 tablet by mouth once daily thiamine (VITAMIN B1) 100 mg tablet Take 100 mg by mouth once daily. 0 Active Comment on above: Take 100 mg by mouth once daily. Vitamin B Complex (4 sources) Start: 08-22-19 End: 11-26-19 take 1 capsule by mouth once daily Vitamin B Complex Discontinued 1 CAP PO DAILY August 21, 2018 12:00am November 26, 2019 1:02pm Start: 08-21-2018 End: 11-26-2019 take 1 capsule by mouth once daily Vitamin B Complex Discontinued 1 CAP PO DAILY August 20, 2018 11:00pm November 26, 2019 12:02pm Vitamin B Complex capsule (2 sources) Start: 08-21-2018 End: 11-26-2019 Vitamin B Complex capsule Discontinued 1 NMA PO DAILY August 21, 2018 12:00am November 26, 2019 1:02pm vitamin b12 1 mg oral capsule (6 sources) Vitamin B12 Start: 08-21-2018 End: 04-02-2021 take 1 capsule by mouth once daily Cyanocobalamin (Vitamin B-12) 1,000 mcg capsule Discontinued 1000 ug PO DAILY August 21, 2018 12:00am April 02, 2021 1:59pm Problems Active Problems Problem Classification Problem Date Documented Da te Episodic/Chronic Immunizations and screening for infectious disease (3 sources) Encounter for immunization; Translations: [Encounter for screening for other viral diseases] Onset: 09-23-2022 Episodic Menopausal disorders (20 sources) Menopausal syndrome; Translations: [Menopausal and female climacteric states] Onset: 07-07-2022 06-03-2022 Chronic Comment on above: lining 4mm. Uterus f luid extended: EMB pending estrogen patch/prome trium, vaginal estrogen. counseled regarding stopping, patient asked for one more year. reviewed risks, check fasting labs, will talk about stopping next year 2022 lining 4mm. [place] fluid extended: EMB negative. 12/2024: on HRT, spotting. EMB and US pending Other and unspecified benign neoplasm (1 source) Tubular adenoma ; Translations: [Benign neoplasm, unspecified site] 10-27-2022 Episodic Other connective tissue disease (6 sources) Cramp in lower limb; Translations: [Cramp and spasm] 06-03-2022 Episodic Comment on above: labs ordered discuss ed supplement Other female genital disorders (11 sources) Dyspareunia; Translations: [Dyspareunia] Onset: 09-23-2022 06-03-2022 Chronic Comment on above: failed vaginal estra ce plan HRT Other female genital disorders (4 sources) Endocervical polyp; Translations: [Polyp of cervix uteri] 03-21-2023 Episodic Comment on above: removed. Path pendin g Other female genital disorders (1 source) Polyp of cervix uteri; Translations: [Mucous polyp of cervix] 03-21-2023 Episodic Other gastrointestinal disorders (1 source) Constipation, unspecified; Translations: [Constipation, unspecified constipation type] Onset: 09-23-2022 Episodic Other nutritional; endocrine; and metabolic disorders (1 source) Obesity; Translations: [Obesity, unspecified] Onset: 06-03-2022 09-23-2022 Chronic Other upper respiratory infections (2 sources) Acute sinusitis; Translations: [Acute sinusitis, unspecified] 02-13-2021 Episodic Unclassified (2 sources) SINUS 02-13-2021 Comment on above: SINUS Past or Other Problems Problem Classification Problem Date Documented Da te Episodic/Chronic Other connective tissue disease (3 sources) Cramp and spasm; Translations: [Cramp of limb] Onset: 08-03-2024 06-03-2022 Episodic Other screening for suspected conditions (not mental disorders or infectious disease) (12 sources) Abnormal findings on diagnostic imaging of breast; Translations: [Other abnormal and inconclusive findings on diagnostic imaging of breast] Onset: 06-03-2022 09-23-2022 Episodic Results Test Name Value Interpretation Reference Range Facility Absolute lymphocyte countOrd ered By: Suki Muellersimon on 01-14-2025 Lymphocytes Auto (Unsp spec) [#/Vol] 1.51 10*3/uL 0.83-4.51 [facility] Absolute neutrophil countOrd ered By: Suki Muellersimon on 01-14-2025 Neutrophils (Bld) [#/Vol] 3.4 10*3/uL 2.0-7.7 [facility] Automated lymphocyte count a s percentage of total leukocytesOrdered By: Suki Flores on 01-14-2025 Lymphocytes/100 WBC Auto (Unsp spec) 26.5 % 19-41 [facility] Basophil percentageOrdered B y: Suki Sandra on 01-14-2025 Basophils/100 WBC (Bld) 1.4 % High 0-1 [facility] CBC W/Diff, Automatedon 12-18 Absolute Lymph 1.51 X10 3/uL Normal 0.83-4.51 [facility] Comment on above: Performed By: #### L 100.0100, L501.9985, L500.4100, L501.9520 #### [facility] [address] [place], [address] Absolute Neut 3.4 X10 3/uL Normal 2.0-7.7 [facility] Comment on above: Performed By: #### L 100.0100, L501.9985, L500.4100, [id number] #### [facility] [address] [place], [address] Basophils/100 WBC (Bld) 1.4 % High 0-1 [facility] Comment on above: Performed By: #### L 100.0100, L501.9985, L500.4100, [id number] #### [facility] [address] [place], [address] Eosinophils/100 WBC (Bld) 2.3 % Normal 0-5 [facility] Comment on above: Performed By: #### L 100.0100, L501.9985, L500.4100, [id number] #### [facility] [address] [place], [address] Erythrocyte distribution width (RBC) [Ratio] 12.9 % Normal 11.6-14.6 [facility] Comment on above: Performed By: #### L 100.0100, L501.9985, L500.4100, [id number] #### [facility] [address] [place], [address] Hematocrit (Bld) [Volume fraction] 38.6 % Normal 37-47 [facility] Comment on above: Performed By: #### L 100.0100, L501.9985, L500.4100, [id number] #### [facility] [address] [place], [address] Hemoglobin (Bld) [Mass/Vol] 12.7 g/dL Normal 12.0-15.0 [facility] Comment on above: Performed By: #### L 100.0100, L501.9985, L500.4100, [id number] #### [facility] [address] [place], [address] IG% 0.500 Normal 0.0-0.9 [facility] Comment on above: Result Comment: IG% - Immature Granulocytes (promyelocytes, myelocytes and metamyelocytes) > 1% indicates that a LEFT SHIFT is Present. Performed By: #### L 100.0100, L501.9985, L500.4100, L501.9520 #### [facility] [address] [place], [address] Lymphocytes/100 WBC (Bld) 26.5 % Normal 19-41 [facility] Comment on above: Performed By: #### L 100.0100, L501.9985, L500.4100, [id number] #### [facility] [address] [place], [address] MCH (RBC) [Entitic mass] 30.2 pg Normal 27.0-32.0 [facility] Comment on above: Performed By: #### L 100.0100, L501.9985, L500.4100, L501.9520 #### [facility] [address] [place], [address] MCHC (RBC) [Mass/Vol] 32.9 g/dL Normal 32-36 [facility] Comment on above: Performed By: #### L 100.0100, L501.9985, L500.4100, [id number] #### [facility] [address] [place], [address] MCV (RBC) [Entitic vol] 91.7 fL Normal 81-99 [facility] Comment on above: Performed By: #### L 100.0100, L501.9985, L500.4100, [id number] #### [facility] [address] [place], [address] Monocytes/100 WBC (Bld) 9.8 % Normal 0-10 [facility] Comment on above: Performed By: #### L 100.0100, L501.9985, L500.4100, [id number] #### [facility] [address] [place], [address] Neutrophils/100 WBC (Bld) 59.5 % Normal 47-70 [facility] Comment on above: Performed By: #### L 100.0100, L501.9985, L500.4100, [id number] #### [facility] [address] [place], [address] Nucleated RBC (Bld) [#/Vol] 0 10*3/uL Normal 0-5 [facility] Comment on above: Performed By: #### L 100.0100, L501.9985, L500.4100, [id number] #### [facility] [address] [place], [address] Platelet mean volume (Bld) [Entitic vol] 11.0 fL Normal 6.2-12.0 [facility] Comment on above: Performed By: #### L 100.0100, L501.9985, L500.4100, L501.9520 #### [facility] [address] [place], [address] Platelets (Bld) [#/Vol] 230 10*3/uL Normal 150-450 [facility] Comment on above: Performed By: #### L 100.0100, L501.9985, L500.4100, [id number] #### [facility] [address] [place], [address] RBC (Bld) [#/Vol] 4.21 10*6/uL Normal 4.2-5.4 [facility] Comment on above: Performed By: #### L 100.0100, L501.9985, L500.4100, [id number] #### [facility] [address] [place], [address] RDW SD 42.8 fl Normal 35.1-43.9 [facility] Comment on above: Performed By: #### L 100.0100, L501.9985, L500.4100, [id number] #### [facility] [address] [place], [address] WBC (Bld) [#/Vol] 5.7 10*3/uL Normal 4.4-11.0 [facility] Comment on above: Performed By: #### L 100.0100, L501.9985, L500.4100, [id number] #### [facility] [address] [place], [address] Calculated very low density lipoprotein (VLDL) cholesterol measurementOrdered By: Suki Flores on 01-14-2025 Calculated very low density lipoprotein (VLDL) cholesterol measurement 18 mg/dL 5-40 [facility] Eosinophil percentageOrdered By: Suki Flores on 01-14-2025 Eosinophils/100 WBC (Bld) 2.3 % 0-5 [facility] Erythrocyte distribution wid th ratioOrdered By: Suki Flores on 01-14-2025 Erythrocyte distribution width (RBC) [Ratio] 12.9 % 11.6-14.6 [facility] Erythrocyte distribution wid th standard deviationOrdered By: Suki Flores on 01-14-2025 Erythrocyte distribution width (RBC) [Ratio] 42.8 fl 35.1-43.9 [facility] Hematocrit Auto (Bld) [Volum e fraction]Ordered By: Suki Flores on 01-14-2025 Hematocrit (Bld) [Volume fraction] 38.6 % 37-47 [facility] Hemoglobin A1con 01-14-2025 HbA1c (Bld) [Mass fraction] 5.3 % Normal <=5.6 [facility] Comment on above: Result Comment: Norm al < 5.7 % Prediabetic 5.7 - 6.4 % Diabetic >or= 6.5 % Please note range changes. Performed By: #### L 100.0100, L501.9985, L500.4100, L501.9520 #### [facility] [address] [place], [place], [address] Hemoglobin A1c percentageOrd ered By: Suki Flores on 01-14-2025 HbA1c (Bld) [Mass fraction] 5.3 % <5.7 [facility] Comment on above: Normal < 5.7 % Predi abetic 5.7 - 6.4 % Diabetic >or= 6.5 % Please note range changes. Hemoglobin measurementOrdere d By: Suki Flores on 01-14-2025 Hemoglobin (Bld) [Mass/Vol] 12.7 g/dL 12.0-15.0 [facility] Immature granulocytes/100 WB C Auto (Bld)Ordered By: Suki Flores on 01-14-2025 Immature granulocytes/100 WBC (Bld) 0.500 % 0.0-0.9 [facility] Comment on above: IG% - Immature Granu locytes (promyelocytes, myelocytes and metamyelocytes) > 1% indicates that a LEFT SHIFT is Present. LDL calc ser/plasOrdered By: Suki Flores on 01-14-2025 Cholesterol in LDL [Mass/Vol] 99 mg/dL [facility] Comment on above: Dmphlkuhgg=591-729 m g/dL & Higher Dmly=239 mg/dL or greaterFriedwald Equation for LDL-C Lipid Profileon 01-14-2025 CHOL:HDL 3.19 Normal [facility] Comment on above: Performed By: #### L 100.0100, L501.9985, L500.4100, L501.9520 #### [facility] [address] [place], [place], [address] Cholesterol [Mass/Vol] 170 mg/dL Normal <=200 [facility] Comment on above: Result Comment: Chol esterol level, Desirable <200 mg/dL Borderline high cholesterol 200-239 mg/dL High cholesterol >=240 mg/dL Recommendations of the NCEP Adult Treatment Panel for the following risk-cutoff thresholds for the [place] population. Performed By: #### L 100.0100, L501.9985, L500.4100, L501.9520 #### [facility] [address] [place], [address] Cholesterol in HDL [Mass/Vol] 53 mg/dL Normal [facility] Comment on above: Result Comment: Roro onal Cholesterol Education Program (NCEP) guidelines: <40 mg/dL: Low HDL-cholesterol (major risk factor for CHD) >= 60 mg/dL: High HDL-cholesterol (negative risk factor for CHD) HDL-cholesterol is affected by a number of factors, e.g. smoking, exercise, hormones, sex and age. Performed By: #### L 100.0100, L501.9985, L500.4100, L501.9520 #### [facility] [address] [place], [address] Cholesterol in LDL [Mass/Vol] 99 mg/dL Normal [facility] Comment on above: Result Comment: Bord awksfl=795-409 mg/dL Higher Ywwx=622 mg/dL or greater Friedwald Equation for LDL-C Performed By: #### L 100.0100, L501.9985, L500.4100, [id number] #### [facility] [address] [place], [address] Cholesterol in VLDL [Mass/Vol] 18 mg/dL Normal 5-40 [facility] Comment on above: Performed By: #### L 100.0100, L501.9985, L500.4100, L501.9520 #### [facility] [address] [place], [address] Triglyceride [Mass/Vol] 90 mg/dL Normal [facility] Comment on above: Result Comment: The drugs N-Acetylcysteine and Metamizole may falsely depress this assay. Normal range: <150 mg/dL Borderline High: 150-199 mg/dL High: 200-499 mg/dL Very High: >500 mg/dL Performed By: #### L 100.0100, L501.9985, L500.4100, L501.9520 #### [facility] [address] [place], [address] MCV (mean corpuscular volume ) determinationOrdered By: Suki Flores on 01-14-2025 MCV (RBC) [Entitic vol] 91.7 fL 81-99 [facility] Mean corpuscular hemoglobin (MCH) determinationOrdered By: Suki Flores on 01-14-2025 MCH (RBC) [Entitic mass] 30.2 pg 27.0-32.0 [facility] Mean corpuscular hemoglobin concentration (MCHC) determinationOrdered By: Suki Flores on 01-14-2025 MCHC (RBC) [Mass/Vol] 32.9 g/dL 32-36 [facility] Mean platelet volume determi nationOrdered By: Suki Flores on 01-14-2025 Platelet mean volume (Bld) [Entitic vol] 11.0 fL 6.2-12.0 [facility] Monocyte percentageOrdered B y: Suki Flores on 01-14-2025 Monocytes/100 WBC (Bld) 9.8 % 0-10 [facility] Neutrophil percentageOrdered By: Suki Flores on 01-14-2025 Neutrophils/100 WBC (Bld) 59.5 % 47-70 [facility] Nucleated red blood cell per centageOrdered By: Suki Flores on 01-14-2025 Nucleated RBC/100 WBC (Bld) [Ratio] 0 % 0-5 [facility] Dianeticist Office Visit Reporton 01-14-2025 Dianeticist Office Visit Report [facility], [address] [place] [address] OFFICE VISIT Date of Service: 01/14/25 MR#: [id number] Acct: [id number] Name: HARITHA REESE Rep #: [id number] : 1960 Provider: MLT-C Fernanda Hast ings Age/Sex: 64/F Location: [facility] Status: Signed Intake Vital Signs 08/03/24 13:30 01/14/25 10:31 Height 5 ft 4 in 5 ft 4 in Weight: 142 lb 8 oz 142 lb 7 oz BMI 24.4 24.4 BP 125/84 H 122/76 H Intake Visit Reasons: POST MENOPAUSAL BLEEDING 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 Is patient in pain?: No Allergies codeine Allergy (Unknown, Verified 01/14/25 10:41) Unknown Sulfa (Sulfonamide Antibiotics) Allergy (Unknown, Verified 01/14/25 10:41) Unknown Medications ???Medication ???Instructions ???Recorded ???Confirmed ???Type omega-3 fatty acids 1,000 mg 1,000 mg PO DAILY 08/21/18 5 History capsule (Fish Oil Concentrate) multivitamin,tx-iron -minerals 1 tab PO DAILY 11/26/19 01/14/25 H istory (Complete Multivitamin tablet) calcium 600 mg (as cap PO 04/02/21 01/14/25 History carbonate)-vitamin D3 12.5 mcg (500 unit) capsule (Calcium with Vit D3) estradiol 0.01% (0.1 mg/gram) See Rx Instructions vaginal 01/14/25 Rx vaginal cream (Estrace) .COMPLEX #42.5 grams estradiol 0.05 mg/24 hr semiweekly 1 patch transdermal 2XW #8 ea 01/14/25 Rx transdermal patch (Vivelle-Dot) fluconazole 150 mg tablet 150 mg PO ONCE PRN itch #1 TAB 01/14/25 Rx progesterone micronized 100 mg 100 mg PO .COMPLEX #90 caps 01/14/25 Rx capsule (Prometrium) Is last menstrual period known: No Post menopausal: Yes Patient : No : No PFSH PFSH Surgical History Hx of tubal ligation H/O carpal tunnel repair Family History Father Diabetes Social History number of children: 2 Smoking Status: Never smoker alcohol intake: current alcohol intake frequency: a few times a month substance use type: does not use caffeine: No what type of physical activity do you participate in: other details: crossfit frequency: 3-4 times per week seatbelt use: always do you feel safe at home: Yes additional social history: [employer] Patient is a [employer] History 2 Elective abortions Hx Para 2 Spontaneous abortions Hx # Term Pregnancies Ectopic pregnancies Hx # Pregnancies Multiple births # of living children Past Pregnancies Del. Date Name GA/Weeks Outcome Route Bth Weight Gen Labor Lgth Anesthesia Del Locatn Provider FOB Unknown 1983 Ning live - full term Unknown 1985 [place] live - full term HPI POST MENOPAUSAL BLEEDING Details: HARITHA REESE is a 64 year old who presents for EMB for postmenopausal bleeding. Had a day of light spotting a couple of weeks ago. Is on estradiol patch and daily prometrium plus vaginal estrogen cream. Has not been consistent with changing patch as directed. ROS Const Constitutional: Reports system reviewed and no additional complaints, except as documented Eyes Eyes: Reports system reviewed and no additional complaints, except as documented GI GI: Denies abdominal pain or change in bowel habits : Reports as per HPI Exam Const General: cooperative and no acute distress Orientation: oriented x3 General: bladder normal to palpation External Female Exam: normal external appearance and normal appearance of the urethra Urethra: normal appearance of the urethra Speculum Exam - Vagina: normal appearance of the vagina, normal vaginal discharge, no lesions and nontender Speculum Exam - Cervix: normal appearance of the cervix Bimanual Exam- Vagina Uterus: normal bimanual exam, uterine size normal, bladder normal to palpation, uterine shape normal, uterine mobility normal and non-tender Bimanual Exam- Adnexa, other: normal adnexae, no masses and non-tender Office Procedures Endometrial Biopsy Endometrial Biopsy Test: Yes Not Applicable Consent Signed: Yes Time out checklist: patient, procedure, site marked/identified, positioning of patient, supplies available, allergies confirmed and team agrees on procedure Time out time: 10:43 tenaculum used: No dilator used: No Details: Cervix prepped with betadine and syringe pipelle inserted 8cm into uterus without complication. Specimen obtained and sent to lab for analysis. All instruments removed from vagina without complications. Excellent hemostasis noted. 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 Normal [facility] Platelet countOrdered By: Arun Flores on 01-14-2025 Platelets (Bld) [#/Vol] 230 10*3/uL 150-450 [facility] RBC Auto (Bld) [#/Vol]Ordere d By: Suki Flores on 01-14-2025 RBC (Bld) [#/Vol] 4.21 10*6/uL 4.2-5.4 [facility] Screening total cholesterol/ high density lipoprotein (HDL) cholesterol ratioOrdered By: Suki Flores on 01-14-2025 Cholesterol.total/Choles terol in HDL [Mass ratio] 3.19 {ratio} [facility] Serum or plasma cholesterol in HDL measurement (mass/volume)Ordered By: Suki Flores on 01-14-2025 Cholesterol in HDL [Mass/Vol] 53 mg/dL >40 [facility] Comment on above: National Cholesterol Education Program (NCEP) guidelines:<40 mg/dL: Low HDL-cholesterol (major risk factor for CHD)>= 60 mg/dL: High HDL-cholesterol (negative risk factor for CHD)HDL-cholesterol is affected by a number of factors, e.g. smoking, exercise, hormones, sex and age. Serum or plasma cholesterol measurement (mass/volume)Ordered By: Suki Flores on 01-14-2025 Cholesterol [Mass/Vol] 170 mg/dL <201 [facility] Comment on above: Cholesterol level, D esirable <200 mg/dLBorderline high cholesterol 200-239 mg/dLHigh cholesterol >=240 mg/dLRecommendations of the NCEP Adult Treatment Panel for the following risk-cutoff thresholds for the [place] population. Surgery Specimen Level Danny 01-14-2025 Surgery Specimen Level IV Patient Age/Sex Location Account Attending Physician [facility] 64[id number] Suki Flores MD Specimen: [id number] Received: 01/14/25 Status: ASHLEY Osei Num: [id number] Spec Type: ENDOM BX/C Subm Dr: Dr. Suki Flores MD HEADER OPERATION: Endometrial biopsy PRE-OP DIAGNOSIS: Post menopausal bleeding TISSUE SUBMITTED: A- Endometrial tissue MICROSCOPIC DIAGNOSIS A. Endometrium, biopsy: * Fragments of proliferative endometrium. MICROSCOPIC DESCRIPTION Slides are reviewed. GROSS DESCRIPTION A. Received in formalin labeled the patient's name and date of is a 1.9 x 0.8 x 0.1 cm aggregate of mucoid material admixed with flecks of red apparent tissue. Entirely submitted in 1 cassette. Entirety of the specimen entirety of the specimen may not survive processing. MI 01/14/2025 CPT:68524 Patient Age/Sex Location Account Attending Physician HARITHA REESE 64/F [facility] [id number] Dr. Suki Flores MD Signed (signature on file) Dr. Verónica Ascencio MD 01/18/25 1519 Normal [facility] Comment on above: Performed By: #### P CHRISTY #### [facility] [place], [place], [id number] TSH DL <= 0.005 mIU/L QnOrde red By: Suki Flores on 01-14-2025 TSH Qn 2.420 uIU/mL 0.300-4.200 [facility] Thyroid Stim Hormone (TSH)on 01-14-2025 TSH 2.420 uIU/mL Normal 0.300-4.200 [facility] Comment on above: Performed By: #### L 100.0100, L501.9985, L500.4100, L501.9520 #### [facility] Laboratory [address] [place], [place], [address] Triglycerides measurementOrd ered By: Suki Flores on 01-14-2025 Triglyceride [Mass/Vol] 90 mg/dL <199 [facility] Comment on above: The drugs N-Acetylcy steine and Metamizole may falsely depress this assay. Normal range: <150 mg/dLBorderline High: 150-199 mg/dLHigh: 200-499 mg/dLVery High: >500 mg/dL White blood cell (WBC) count Ordered By: Suki Flores on 01-14-2025 WBC (Bld) [#/Vol] 5.7 10*3/uL 4.4-11.0 [facility] Breast imaging reportOrdered By: Samreen Falcon on 09-25-2024 Study report [facility] Imaging Services [address] [place], [place] [address] SCRN MAMM (CAD)W/ANNETTE BILAT MR#: [id number] Acct: [id number] Name: HARITHA REESE Rep #: [id number] : 1960 F 63 From: Bishnu Conway MD PCP: Dr. Joe Waters MD Status: RE G CLI Study:SCRN MAMM (CAD)W/ANNETTE BILAT Date of Exa m: 09/25/24 Exam# [id number] Ordering Dr: Suki Blackburn MD EXAM: SCRN MAMM (CAD)W/ANNETTE BILAT DATE: 09/25/2024 CLINICAL HISTORY: F, Age 63 y/o , SCREENING MAMMOGRAM BREAST CANCER RISK ASSESSMENT: Na TECHNIQUE: Bilateral screening digital breast tomosynthesis with 2D and 3D images. Computeraided detection. COMPARISON: Prior exam(s) were compared FINDINGS: TISSUE DENSITY: The breast tissue is heterogenously dense, which may obscure small masses. Bilateral Breast Mammographic Findings: No suspicious masses, calcifications or other abnormalities are identified. BI/SCRN MAMM (CAD)W/ANNETTE BILAT IMPRESSION: OVERALL FINAL ASSESSMENT: BIRADS 1 NEGATIVE RECOMMENDATION: Routine annual follow-up in 1 Year A letter with findings and recommendations will be mailed to the patient. Reading Location: [id number] CC: Dr. Joe Waters MD; Dr. Suki Flores MD ~ Physician Primary Care Sports Medicine: Signed [facility] SCRN MAMM (CAD)W/ANNETTE BILATo n 09-25-2024 SCRN MAMM (CAD)W/ANNETTE BILAT [facility] Imaging Services [address] [place], [place] [id number] SCRN MAMM (CAD)W/ANNETTE BILAT MR#: [id number] Acct: [id number] Name: HARITHA REESE Rep #: [id number] : 1960 F 63 From: Samreen Contreras i, MD PCP: Dr. Joe Waters MD Status: [facility] Study: SCRN MAMM (CAD)W/ANNETTE BILAT Date of Exam: 09/16 Exam# [id number] Ordering Dr: Suki Flores EXAM: SCRN MAMM (CAD)W/ANNETTE BILAT DATE: 09/25/2024 CLINICAL HISTORY: F, Age 63 y/o , SCREENING MAMMOGRAM BREAST CANCER RISK ASSESSMENT: Na TECHNIQUE: Bilateral screening digital breast tomosynthesis with 2D and 3D images. Computer aided detection. COMPARISON: Prior exam(s) were compared FINDINGS: TISSUE DENSITY: The breast tissue is heterogenously dense, which may obscure small masses. Bilateral Breast Mammographic Findings: No suspicious masses, calcifications or other abnormalities are identified. BI/SCRN MAMM (CAD)W/ANNETTE BILAT IMPRESSION: OVERALL FINAL ASSESSMENT: BIRADS 1 NEGATIVE RECOMMENDATION: Routine annual follow-up in 1 Year A letter with findings and recommendations will be mailed to the patient. Reading Location: [id number] CC: Dr. Joe Waters MD; Dr. Suki Flores MD Physician Primary Care Sports Medicine: Signed Normal [facility] Dianeticist Office Visit Reporton 08-03-2024 Dianeticist Office Visit Report [facility] [address], [address] [place] [address] OFFICE VISIT Date of Service: 08/03/24 MR#: [id number] Acct: [id number] Name: HARITHA REESE Rep #: [id number] : 1960 Provider: Dr. 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 Is patient in pain?: No Allergies codeine Allergy (Unknown, Verified 08/03/24 13:32) Unknown Sulfa (Sulfonamide Antibiotics) Allergy (Unknown, Verified 08/03/24 13:32) Unknown Medications ???Medication ???Instructions ???Recorded ???Confirmed ???Type omega-3 fatty acids 1,000 mg 1,000 mg PO DAILY 08/21/18 5 History capsule (Fish Oil Concentrate) multivitamin,tx-iron -minerals 1 tab PO DAILY 11/26/19 08/03/24 H istory (Complete Multivitamin tablet) calcium 600 mg (as cap PO 04/02/21 08/03/24 History carbonate)-vitamin D3 12.5 mcg (500 unit) capsule (Calcium with Vit D3) estradiol 0.01% (0.1 mg/gram) See Rx Instructions vaginal 08/03/24 Rx vaginal cream (Estrace) .COMPLEX #42.5 grams estradiol 0.05 mg/24 hr semiweekly 1 patch transdermal 2XW #8 ea 08/03/24 Rx transdermal patch (Vivelle-Dot) fluconazole 150 mg tablet 150 mg PO ONCE PRN itch #1 TAB 08/03/24 Rx progesterone micronized 100 mg 100 mg PO .COMPLEX #90 caps 08/03/24 Rx capsule (Prometrium) Is last menstrual period known: No Post menopausal: Yes Patient : No : No PFSH Surgical History Hx of tubal ligation H/O carpal tunnel repair Family History Father Diabetes Social History (Updated 08/03/24 @ 13:33 by Fernanda Velez) number of children: 2 Smoking Status: Never smoker alcohol intake: current alcohol intake frequency: a few times a month substance use type: does not use caffeine: No what type of physical activity do you participate in: other details: crossfit frequency: 3-4 times per week seatbelt use: always do you feel safe at home: Yes additional social history: [employer] Patient is a [place] History 2 Elective abortions Hx Para 2 Spontaneous abortions Hx # Term Pregnancies Ectopic pregnancies Hx # Pregnancies Multiple births # of living children Past Pregnancies Del. Date Name GA/Weeks Outcome Route Bth Weight Gen Labor Lgth Anesthesia Del Locatn Provider FOB Unknown 1983 Ning live - full term Unknown 1985 [place] live - full term HPI Encounter for routine gynecological examination Details: HARITHA REESE is a 63 year old who presents for annual exam. Last PAP: 08/01/2023 - normal History of abnormal PAP: Last mammogram: 09/08/2023 - normal History of abnormal mammogram: Colon cancer screening: colonoscopy about 2-3 years ago Other preventative health care screenings: PCP Evelin, has not seen PCP routinely Female Reproductive History Questions: metorrhagia: No, sexually active: Yes, dyspareunia: No and PCB: No Menopausal Symptoms: No hot flashes, No night sweats, No weight change, No mood changes, No difficulty concentrating, No sleep problems and No change in libido ROS Const Constitutional: Reports as per HPI; Denies fatigue, increased appetite, poor appetite, night sweats, weight gain or weight loss Cardio Card: Denies chest pain Resp Resp: Denies cough or dyspnea GI GI: Reports as per HPI; Denies abdominal pain, bloating, constipation, nausea or vomiting : Reports as per HPI and other; Denies difficulty voiding, dysuria, hematuria, hot flashes, nipple discharge, pelvic pain, prolapse symptoms, urinary frequency, urinary incontinence, urinary urgency, vaginal discharge, vaginal dryness, vaginal odor or vaginal pruritus Skin Skin/Breast: Denies changing lesions, breast mass, breast pain, breast skin changes or nipple discharge Psych Psych: Denies anxiety, change in libido, depression or difficulty concentrating Exam Const General: cooperative, healthy appearing, comfortable, no acute distress, well developed and well groomed HENNE Head: normal to inspection and normocephalic Ears: hearing grossly normal bilaterally and external ears normal Nose: external nose normal Face and sinus: normal facial exam Neck Neck: normal visual inspection, full ROM and no lymphadenopathy Thyroid: thyroid normal Chest Chest palpation inspection: normal inspection of the chest Breast inspection: normal inspection of the breasts and normal (more content not included)... Normal [facility] Cervical or vaginal specimen microscopic examination by liquid based cytology (reportOrdered By: Suki Flores on 08-01-2023 Cytology report Cyto stain.thin prep Doc (Cvx/Vag) Comment . [facility] Comment on above: Criteria not met, HP V Genotype not performed.Performed at: - [facility] [id number] Director: Emily Enciso MD, Phone: [phone] at: = - [facility] [id number] Director: Emily Enciso MD, Phone: [phone] Cervical or vagninal specime n microscopic examination by cytology stain (reported asOrdered By: Suki Flores on 08-01-2023 Cytology report Cyto stain Doc (Cvx/Vag) Comment . [facility] Comment on above: The Pap smear is a s creening test designed to aid in thedetection of premalignant and malignant conditions of theuterine cervix. It is not a diagnostic procedure andshould not be used as the sole means of detecting cervicalcancer. Both false-positive and false-negative reports dooccur. Detection in cervical specim en of any of human papilloma virus (HPV) 16, 18, 31, 33,Ordered By: Suki Flores on 08-01-2023 HPV 16+18+31+33+35+39+45+51+ 52+56+58+59+66+68 DNA Probe+sig amp Ql (Cvx) Negative Negative [facility] Comment on above: This nucleic acid am plification test detects fourteen high-risk HPV types (16,18,31,33,35,39,45,51,52,56,58,59,66,68)without differentiation. Laboratory - CytologyOrdered By: Suki Flores on 08-01-2023 Endoscopic Technician Cyto stain Nom (Cvx/Vag) [ID] Comment . [facility] Comment on above: Paulette Conley, [employer] hnologist (ASCP) Laboratory - Miscellaneous t estsOrdered By: Suki Flores on 08-01-2023 Service comment (Unsp spec) [Interp] . . [facility] Thin prep Papanicolaou smear with manual screeningOrdered By: Suki Flores on 08-01-2023 Thin prep Papanicolaou smear with manual screening Comment . [facility] Comment on above: NEGATIVE FOR INTRAEP ITHELIAL LESION OR MALIGNANCY.FUNGAL ORGANISMS MORPHOLOGICALLY CONSISTENT WITH MIKE SPECIES AREPRESENT. This liquid based Th inPrep(R) pap test was screened withthe use of an image guided system. Colonoscopyon 10-14-2022 Colonoscopy [facility] Gastrointestinal Endoscopy Patient Name: Haritha Reese Procedure Date: 10/14/2022 7:43 AM Date of : 1960 Admit Type: Outpatient Age: 61 Gender: Female Note Status: Finalized Procedure: Colonoscopy Indications: Screening for colorectal malignant neoplasm Providers: Lucio Oneil MD Patient Profile: This is a 61 year old female. Refer to note in patient chart for documentation of history and physical. Last Colonoscopy: none. The patient's first colonoscopy is today. Referring Physician: Lucio Oneil MD (Referring MD), Joe Waters MD (Referring MD) Medicines: Fentanyl 100 micrograms IV, Midazolam 7 mg IV, Diphenhydramine 50 mg IV Complications: No immediate complications. Estimated blood loss: Minimal. Requesting Provider: Procedure: Pre-Anesthesia Assessment: - Prior to the procedure, a History and Physical was performed, and patient medications and allergies were reviewed. The patient's tolerance of previous anesthesia was also reviewed. The risks and benefits of the procedure and the sedation options and risks were discussed with the patient. All questions were answered, and informed consent was obtained. Prior Anticoagulants: The patient has taken no anticoagulant or antiplatelet agents. ASA Grade Assessment: II - A patient with mild systemic disease. After reviewing the risks and benefits, the patient was deemed in satisfactory condition to undergo the procedure. After I obtained informed consent, the scope was passed under direct vision. Throughout the procedure, the patient's blood pressure, pulse, and oxygen saturations were monitored continuously. The Colonoscope was introduced through the anus and advanced to 3 cm into the ileum. The colonoscopy was performed without difficulty. The patient tolerated the procedure well. The quality of the bowel preparation was adequate to identify polyps 6 mm and larger in size. The terminal ileum, ileocecal valve, appendiceal orifice, and rectum were photographed. Moderate Sedation: The administration of moderate sedation was initiated at 07:51 AM. Moderate (conscious) sedation was personally administered by the endoscopist. The following parameters were monitored: oxygen saturation, heart rate, blood pressure, respiratory rate, EKG, adequacy of pulmonary ventilation, and response to care. Total physician intraservice time was 27 minutes. Findings: The perianal and digital rectal examinations were normal. A small polyp was found in the sigmoid colon. The polyp was sessile. The polyp was removed with a cold snare. Resection and retrieval were complete. Non-bleeding internal hemorrhoids were found during retroflexion. The hemorrhoids were mild and small. The terminal ileum appeared normal. The exam was otherwise without abnormality. Impression: - One small polyp in the sigmoid colon, removed with a cold snare. Resected and retrieved. - Non-bleeding internal hemorrhoids. - The examined portion of the ileum was normal. - The examination was otherwise normal. Recommendation: - Patient has a contact number available for emergencies. The signs and symptoms of potential delayed complications were discussed with the patient. Return to normal activities tomorrow. Written discharge instructions were provided to the patient. - Resume previous diet. - Continue present medications. - Await pathology results. - Repeat colonoscopy date to be determined after pending pathology results are reviewed for surveillance based on pathology results. - Return to physician medical office receptionist assistant in 1 week. Procedure Code(s): --- Professional --- 44328, Colonoscopy, flexible; with removal of tumor(s), polyp(s), or other lesion(s) by snare technique 05757, Moderate sedation; each additional 15 minutes intraservice time G0500, Moderate sedation services provided by the same physician or other qualified health healthcare corporate account director performing a gastrointestinal endoscopic service that sedation supports, requiring the presence of an independent trained observer to assist in the monitoring of the patient's level of consciousness and physiological status; initial 15 minutes of intra-service time; patient age 5 years or older (additional time may be reported with 12333, as appropriate) Diagnosis Code(s): --- Professional --- Z12.11, Encounter for screening for malignant neoplasm of colon D12.5, Benign neoplasm of sigmoid colon K64.8, Other hemorrhoids CPT copyright 2020 [employer]. All rights reserved. The codes documented in this report are preliminary and upon certified coder review may be revised to meet current compliance requirements. Attending Participation: I personally performed the entire procedure. Scope In: 7:56:14 AM Scope Out: 8:18:36 AM MD Lucio Plasencia MD 10/14/2022 8:23:10 AM This report has been signed (more content not included)... Normal [facility] HISTORY PHYSICALon HISTORY PHYSICAL HNO ID: [id number] Author: Lucio Oneil MD Service: General Surgery Author Type: Physician Type: HANDP Filed: 10/14/2022 7:50 AM Note Text: HISTORY AND PHYSICAL Haritha Kelly Hugh 1960 REFERRING PHYSICIAN: Lucio Oneil MD CHIEF COMPLAINT: Consult (colonoscopy) HPI: The patient is a 61 year old female referred for endoscopy. Haritha notes no history of colon complaints. The patient notes no history of upper GI complaints. Haritha has not undergone prior endoscopy. PAST MEDICAL HISTORY PAST MEDICAL HISTORY Diagnosis Date NONE PAST SURGICAL HISTORY PAST SURGICAL HISTORY Procedure Laterality Date CARPAL TUNNEL LIG/TRNSXJ FLP TUBE ABDL/VAG APPR UNI/BI 2002 Tubal ligation CURRENT MEDICATIONS Current Outpatient Medications Medication Sig estradiol 0.025 mg/24 hr Apply 1 Patch as directed one time a week. thiamine (VITAMIN B-1) 100 mg tablet Take 100 mg by mouth once daily. fluconazole (DIFLUCAN) 150 mg tablet TAKE ONE(1) TABLET BY MOUTH WHEN FILLED THEN AGAIN IN 3DAYS IF STILL SYMPTOMATIC LACTOBACILLUS COMBO NO.6 (PROBIOTIC COMPLEX ORAL) Take by mouth. VITAMIN E MIXED/TOCOTRIENOL (VITAMIN E COMPLEX ORAL) Take by mouth. multivitamins(DAILY MULTIVITAMIN TAB) Take one(1) tablet daily. calcium carbonate/vitamin d3(CALCIUM 600 + D(3) 600 MG-125 UNIT TAB) Take one(1) tablet twice daily. fish oil/omega-3 fatty acids(FISH OIL OMEGA 3-6-9 300 MG-1,000 MG CAP, DELAYED RELEASE) peg 3350-Electrolytes (GOLYTELY) 236-22.74-6.74 -5.86 gram suspension Take 4,000 mL by mouth one time only for 1 dose. Refer to printed prep instructions from your provider. gabapentin (NEURONTIN) 100 mg capsule Take 2 capsules by mouth daily at bedtime. for hot flashes (Patient not taking: Reported on 09/02/2022) estradiol (ESTRACE) 0.01 % (0.1 mg/gram) vaginal cream 1/2 inch of cream to lower vagina qhs 2-3 times a week (Patient not taking: Reported on 09/02/2022) Vitamin B Comp with Vit C No.6 500-0.5 mg Tab Take by mouth. (Patient not taking: Reported on 09/02/2022) No current facility-administere d medications for this visit. ALLERGIES: Codeine and Sulfa (Sulfonamide Antibiotics) PERSONAL HISTORY: SOCIAL HISTORY Social History Tobacco Use Smoking status: Never Smokeless tobacco: Never Vaping Use Vaping Use: Never used Substance Use Topics Alcohol use: Yes Comment: Seldom Drug use: No FAMILY HISTORY: FAMILY HISTORY FAMILY HISTORY Problem Relation Age of Onset Diabetes Father Type 2 Hypertension Father REVIEW OF SYMPTOMS: The review of systems data was entered by the nurse and reviewed by me There are no exam notes on file for this visit. PHYSICAL EXAMINATION: General: The patient is 61 year old female, well nourished, well hydrated in no acute distress. The patient is oriented to time, place, and person. VITALS: Blood pressure 112/78, pulse 108, temperature 36.7 ?C (98.1 ?F), height 162.6 cm (5' 4), weight 70.8 kg (156 lb), last menstrual period 07/10/2014, SpO2 94 %. Body mass index is 26.78 kg/m?. HEENT: Normal cephalic, ataumatic, pupils are equally round, sclera are anicteric, mucous membranes are moist, oropharynx is clear. Neck has no masses, asymmetry or lymphadenopathy. Thyroid is unremarkable. Respiratory: Clear to auscultation and percussion. Normal respiratory excursion and pattern. Cardiac: Examination is regular rate and rhythm. Abdominal exam: Soft, nontender, with no palpable masses. No hepatosplenomegaly. No palpable hernias. Rectal exam: exam deferred Extremities: no clubbing, cyanosis or edema. No adenopathy. Other: LABORATORY VALUES: As Noted RADIOLOGIC STUDIES: As Noted Assessment IMPRESSION: Encounter for screening for malignant neoplasm of colon (primary encounter diagnosis) PLAN: I plan to perform lower endoscopy. We discussed the risks and benefits of the planned endoscopy. I have informed the patient that complications can occur including failure to complete the endoscopy and perforation. The patient had the opportunity to ask questions concerning the planned endoscopy. My staff has also explained the procedure to the patient in understandable terms and has given the patient printed material concerning the procedure. The patient freely consents to surgery. I plan to use golytely bowel preparation for endoscopy Diagnoses: (Z12.11) Encounter for screening for malignant neoplasm of colon (primary encounter diagnosis) Return to Clinic: The patient is instructed to follow-up with me 1 week post operatively. Lucio Oneil III, MD UPDATED HISTORY AND PHYSICAL EXAMINATION SERVICE DATE: 10/14/2022 SERVICE TIME: 7:50 AM PHYSICAL EXAM MUST BE COMPLETED ON ADMISSION The History and Physical (completed in the past 30 days) has been reviewed and the patient has been examined. The contents accurately reflect the patient's condition with the following additions or revisions (more content not included)... [facility] NURSING PROGon 10-14-2022 NURSING PROG HNO ID: [id number] Author: Nicole Montelongo RN Service: ? Author Type: Registered Nurse Type: Nursing Progress Note Filed: 10/14/2022 9:05 AM Note Text: Arrived in phase II via cart. Left lateral position. Sedated, but responds to verbal stimuli. Color normal; skin warm and dry. Respirations wnl and unlabored. Abdomen soft and with + bowel sounds in quads X 4. Patient resting comfortably. Family at bedside. Dr. Oneil at bedside to review procedure and recommendations. Nicole Montelongo RN [facility] SURGICAL PATHOLOGYon 023 CASE REPORT [facility] Comment on above: Order Comment: Speci men Type: TISSUE SPECIMEN Ordering Facility: [facility] Address: [address] [place] [address] Result Comment: Surg [facility] Pathology Report Case: [id number] Authorizing Provider: Lucio Oneil MD Collected: 10/14/2022 08:13 AM Ordering Location: Ambulatory Surgery Received: 10/14/2022 01:45 PM Pathologist: Romel Herman MD Specimen: SIGMOID COLON POLYP Performed By: #### S #### [facility] CLIA [id number] OF [facility] CLINICAL HISTORY 6 Normal [facility] Comment on above: Order Comment: Speci men Type: TISSUE SPECIMEN Ordering Facility: [facility] Address: [address] [place] [address] Performed By: #### S #### [facility] CLIA [id number] [address] STATES OF [facility] FINAL DIAGNOSIS [facility] Comment on above: Order Comment: Speci men Type: TISSUE SPECIMEN Ordering Facility: [facility] Address: [address] [place] [address] Result Comment: A. S igmoid colon, polyp, biopsy: -Tubular adenoma Performed By: #### S #### [facility] CLIA [id number] [address] STATES OF [place] FINAL PERFORMING LAB Normal [facility] Comment on above: Order Comment: Speci men Type: TISSUE SPECIMEN Ordering Facility: [facility] Address: [address] [address] Result Comment: Diag nostic interpretation performed at [facility], [address] [place] [address] CLIA# [id number] Microcomputer Technician: Ronni Beltran M.D. Performed By: #### S #### [facility] CLIA [id number] [address] [place] [address] OF [place] GROSS DESCRIPTION Normal [facility] Comment on above: Order Comment: Speci men Type: TISSUE SPECIMEN Ordering Facility: [facility] Address: [address] [place] [address] Result Comment: A. S IGMOID COLON POLYP Received in formalin is one piece of harrell, soft tissue measuring 0.2 x 0.2 x 0.2 cm. Totally submitted in one cassette. Gross examination performed at [address] October 14, 2022 10:18 PM Performed By: #### S #### [facility] CLIA [id number] [address] [place] [address] OF [place] CNOVon 09-23-2022 CNOV Office Visit (INTMWS) HARITHA REESE ([id number]) 1960 F Date Time Provider Department 09/23/22 2:40 PM LAINE HAYDEN INTMWS During your visit today, we recorded the following information about you: Pulse Respiration Blood pressure Weight 93/minute 16/minute 126/82 70.8 kg Height 1.626 m Laine Hayden APRN.CNS 09/24/2022 4:44 PM Addendum SUBJECTIVE: COVID-19 VACCINE(1) Never done HEPATITIS C SCREENING Never done HIV SCREENING Never done DTAP,TDAP,TD(1 - Tdap) Never done LIPID SCREEN Never done DIABETES SCREEN Never done COLORECTAL CANCER SCREENING Never done MAMMOGRAM due on 06/07/2017 PAP TESTING due on 03/24/2020 HPV TESTING due on 03/24/2020 DEPRESSION ASSESSMENT Never done HPI Haritha Reese is a 61 year old female. PMH significat for ACTIVE PROBLEM LIST Obesity, Unspecified Menopausal Syndrome Dyspareunia Other Abnormal and Inconclusive Findings On Diagnostic Imaging of Breast Presents today to establish care with Joe Wtaers MD. Previous PCP: no current or recent visit, urgent care or similar only and DISPLAY FABRICATION SUPERVISOR: [facility] Last seen:05/2022 Labwork:05/2022 ER/Hospitalization:n o Outside records:care everywhere DISPLAY FABRICATION SUPERVISOR: Dr Flores Colonoscopy: Dr Oneil has ordered prep. Completed: no it is scheduled. Notes generally in good health. She is active, weight is stable. Tries to eat a healthy diet. Notes intermittent constipation, 3-4 times per year helped with Miralax. No muscle crams at times. Had labwork at [facility] May 2022. Lab work [facility] June 03, 2022. BUN 23 creatinine 1.07 calcium 8.7 total cholesterol 209 triglycerides 145 HDL 53 LDL 127 VLDL 29 sodium 139 potassium 3.7 chloride 103 CO2 29 gap 7 estimated GFR 56 hemoglobin A1c 5.4% TIBC 347 iron 40-low iron saturation 11.5 low, ferritin 65. Labs ordered by DISPLAY FABRICATION SUPERVISOR. Notes not taking iron due to concern for possible constipation. Review of Systems Constitutional: Negative. Objective BP 126/82 Pulse 93 Resp 16 Ht 162.6 cm (5' 4) Wt 70.8 kg (156 lb) LMP 07/10/2014 SpO2 99% BMI 26.78 kg/m? Physical Exam Vitals and nursing note reviewed. Constitutional: Appearance: Normal appearance. HENT: Head: Normocephalic and atraumatic. Eyes: Conjunctiva/sclera: Conjunctivae normal. Neck: Thyroid: No thyromegaly. Vascular: Normal carotid pulses. No JVD. Cardiovascular: Rate and Rhythm: Normal rate and regular rhythm. Pulses: Carotid pulses are 2+ on the right side and 2+ on the left side. Radial pulses are 2+ on the right side and 2+ on the left side. Pulmonary: Effort: Pulmonary effort is normal. Breath sounds: Normal breath sounds. Abdominal: General: Bowel sounds are normal. Palpations: Abdomen is soft. Musculoskeletal: Right lower leg: No edema. Left lower leg: No edema. Skin: General: Skin is warm and dry. Neurological: General: No focal deficit present. Mental Status: She is alert and oriented to person, place, and time. ALLERGIES Allergen Reactions Codeine Shortness of Breath, Other: See Comments Sulfa (Sulfonamide * Other: See Comments, Hives Tramadol Itching Medication progesterone micronized (PROMETRIUM) 100 mg capsule GAVILYTE-G 236-22.74-6.74 -5.86 gram suspension TAKE 4000 ML BY MOUTH ONE TIME ONLY FOR 1 DOSE. REFER TO PRINTED PREP INSTRUCTIONS FROM PROVIDER estradiol (CLIMARA) 0.0375 mg/24 hr APPLY 1 PATCH EVERY 7 DAYS thiamine (VITAMIN B1) 100 mg tablet Take 100 mg by mouth once daily. multivitamins(DAILY MULTIVITAMIN TAB) Take one(1) tablet daily. calcium carbonate/vitamin d3(CALCIUM 600 + D(3) 600 MG-125 UNIT TAB) Take one(1) tablet twice daily. fish oil/omega-3 fatty acids(FISH OIL OMEGA 3-6-9 300 MG-1,000 MG CAP, DELAYED RELEASE) PAST MEDICAL HISTORY Diagnosis Date NONE Social History Tobacco Use Smoking status: Never Smokeless tobacco: Never Vaping Use Vaping Use: Never used Substance Use Topics Alcohol use: Yes Comment: 0-1 Drug use: No ASSESSMENT/PLAN: Routine medical exam Z00.00 (primary diagnosis) 2. Elevated serum creatinine - ICD9: 790.99, ICD10: R79.89 Endorse sufficient fluid intake, may need more when exercising or outside. - COMP METABOLIC PANEL 3. Constipation, unspecified constipation type - ICD9: 564.00, ICD10: K59.00 Endorse sufficient fluid intake, continue with fruits vegetables whole grains. MiraLAX as needed. - COMP METABOLIC PANEL - CBC + DIFF 4. Screening for lipid disorders - ICD9: V77.91, ICD10: Z13.220 - COMP METABOLIC PANEL - LIPID PANEL BASIC 5. High serum vitamin B12 - ICD9: 790.99, ICD10: R79.89 Stopped taking supplemental, should normalize off of supplement. Recheck. - VITAMIN B12 BLOOD 6. Encounter for immunization - ICD9: V03.89, ICD10: Z23 deferred - [employer] COVID-19 BIVALENT VACCINE, AGE 12+ YR - TDAP VACCINE, AGE 7+ YR (ADACEL, BOOSTRIX) 7. Special scr (more content not included)... [facility] CNOVon 09-02-2022 CNOV Office Visit (GENSWS) HARITHA REESE ([id number]) 1960 F Date Time Provider Department 09/02/22 2:45 PM LUCIO ONEIL During your visit today, we recorded the following information about you: Temperature Pulse Blood pressure Weight 98.1 degrees 108/minute 112/78 70.8 kg Height 1.626 m Lucio Oneil III, MD 09/02/2022 2:48 PM Signed Bowel Preparation Instructions for: Golytely, Nulytely, Trilyte or Colyte (polyethylene glycol 3350 and electrolytes) IF YOU DO NOT FOLLOW THESE DIRECTIONS, YOUR COLONOSCOPY WILL BE CANCELLED. [place] Instructions: Your bowel must be empty so that your doctor can clearly view your colon. Follow all of the instructions in this handout EXACTLY as they are written. Do NOT eat any solid food the ENTIRE day before your colonoscopy. Drink only clear liquids. Buy your bowel preparation at least 5 days before your colonoscopy. TRANSPORTATION on the Day of Your Exam A responsible person MUST be present with you at Check In prior to your colonoscopy and REMAIN in the endoscopy area until you are discharged. You are NOT ALLOWED to drive, take a taxi or bus, or leave the Endoscopy Center ALONE. If you do not have a responsible vibratory pile driver (family member or friend) with you to take you home, your exam cannot be done with sedation and will be cancelled. Please bring a list of all of your current medications, including any Over-the Counter medications with you. Medications If you take insulin, diabetic medications or blood thinners such as Coumadin (warfarin), Plavix (clopidogrel), Ticlid (ticlopidine hydrochloride), Agrylin (anagrelide), Xarelto (Rivaroxaban), Pradaxa (Dabigatran), Eliquis (Apixaban), and Effient (Prasugrel). You MUST call the doctors who orders those medicines for instructions on altering the dosage before your colonoscopy. All other medications should be taken the day of the exam with a sip of water including ASPIRIN. Five (5) Days Before Your Colonoscopy Do NOT take medicines that stop diarrhea - such as Imodium, Kaopectate, or Pepto Bismol. Do NOT take fiber supplements - such as Metamucil, Citrucel, or Perdiem. Do NOT take products that contain iron - such as multi-vitamins (the label lists what is in the products). Do NOT take Vitamin E. Buy the prescription bowel preparation solution at your local pharmacy or drugstore pharmacy. 03/2019 Bowel Preparation Instructions for: Golytely, Nulytely, Trilyte or Colyte (polyethylene glycol 3350 and electrolytes) Three (3) Days Before Your Colonoscopy Do NOT eat high-fiber foods - such as popcorn, beans, seeds (flax, sunflower, quinoa), multigrain bread, nuts, salad/vegetables, or fresh and dried fruit. One (1) Day Before Your Colonoscopy Only drink clear liquids the ENTIRE DAY before your colonoscopy. Do NOT eat any solid foods. Drink at least 8 ounces of clear liquids every hour after waking up. The clear liquids you can drink include: Clear Liquid (NO RED LIQUIDS) DO NOT DRINK Gatorade, Pedialyte or Powerade Clear broth or bouillon Coffee or tea (no milk or non-dairy creamer) Carbonated and non-carbonated soft drinks Ricardo-Aid or other fruit flavored drinks Strained fruit juices (no pulp) Jell-O, popsicles, hard candy Water Alcohol Milk or non-dairy creamers Noodles or vegetables in soup Juice with pulp Liquid you cannot see through Do not use tobacco/vaping products The bowel preparation solution will be consumed in two parts. Mix the solution the evening before your colonoscopy and refrigerate before drinking. You may add the flavor pack that came with the bowel preparation. Do NOT add ice, sugar or any other flavorings to the solution. Part 1 At 6:00 PM - Evening before your colonoscopy Drink an 8-oz glass of bowel preparation every 10 minutes for a total of 8 glasses. You may continue to drink clear liquids until midnight. Part 2 On the day of your colonoscopy you may drink clear liquids up to (three) 3 hours before your procedure. 4 1/2 hours before your colonoscopy Drink an 8-oz glass of bowel preparation every 10 minutes for a total of 8 glasses. Fifteen (15) minutes later, drink an 8-oz glass of clear liquids every 15 minutes for a total of 2 glasses. You may continue to drink clear liquids up to (three) 3 hours before your exam. 2 03/2019 Lucio Oneil III, MD 09/02/2022 2:54 PM Signed HISTORY AND PHYSICAL Haritha Reese 1960 REFERRING PHYSICIAN: Lucio Oneil MD CHIEF COMPLAINT: Consult (colonoscopy) HPI: The patient is a 61 year old female referred for endoscopy. Haritha notes no history of colon complaints. The patient notes no history of upper GI complaints. Haritha has not undergone prior endoscopy. PAST MEDICAL HISTORY Diagnosis Date NONE PAST SURGICAL HISTORY Procedure Laterality Date CARPAL TUNNEL LIG/TRNSX (more content not included)... [facility] Thin prep Papanicolaou smear with manual screeningOrdered By: Dr. Flores on 06-05-2022 Thin prep Papanicolaou smear with manual screening Normal genital ottoniel isolated [facility] Gram stain for investigation of transfusion reactionOrdered By: Dr. Flores on 06-04-2022 Microscopic observation Gram stain Nom (Unsp spec) [facility] Basophil percentageOrdered B y: Dr. Flores on 06-03-2022 Chloride [Moles/Vol] 103 mmol/L 98-107 [facility] Cholesterol [Mass/Vol] 209 mg/dL <200 [facility] Comment on above: <200 mg/dL Desirable 200-240 mg/dL Borderline >240 mg/dL High Risk Glucose [Mass/Vol] 102 mg/dL 74-106 [facility] Comment on above: Fasting Glucose resu lt from 100 to 125 mg/dL suggests IMPAIRED HOMEOSTASIS per A.D.A. criteria. Potassium [Moles/Vol] 3.7 mmol/L 3.5-5.1 [facility] Sodium [Moles/Vol] 139 mmol/L 136-145 [facility] Triglyceride [Mass/Vol] 145 mg/dL <199 [facility] Comment on above: The drugs N-Acetylcy steine and Metamizole may falsely depress this assay.Serum Triglycerides Reference Interval Normal <150 mg/dL Borderline high 150 - 199 mg/dL High 200 - 499 mg/dL Very High > or = 500 mg/dL Iron measurement (mass/mass) Ordered By: Dr. Flores on 06-03-2022 Iron (Unsp spec) [Mass/Mass] 40 ug/dL 50-170 [facility] Laboratory - Chemistry and C hemistry - challengeOrdered By: Dr. Flores on 06-03-2022 CO2 [Moles/Vol] 29.0 mmol/L 21.0-32.0 [facility] Cobalamin (Vitamin B12) [Mass/Vol] 1103 pg/mL 211-911 [facility] Urea nitrogen/Creatinine [Mass ratio] 21.5 mg/mg 10-20 [facility] No Panel InformationOrdered By: Dr. Flores on 06-03-2022 Estimated GFR (MDRD) Amer 67 mL/min >60 [facility] Comment on above: GFR Calc Estimated GFR (MDRD) Non-Af Amer 56 mL/min >60 [facility] Comment on above: Non- GFR Calc Total Iron Binding Capacity 347 ug/dL 250-450 [facility] Serum or plasma calcium hermann urement (mass/volume)Ordered By: Dr. Flores on 06-03-2022 Calcium [Mass/Vol] 8.7 mg/dL 8.5-10.1 [facility] Serum or plasma cholesterol in HDL measurement (mass/volume)Ordered By: Dr. Flores on 06-03-2022 Cholesterol in HDL [Mass/Vol] 53 mg/dL >40 [facility] Comment on above: The drugs N-Acetylcy steine and Metamizole may falsely depress this assay. Reference Range HDL <40 mg/dL Low HDL Cholesterol HDL >or= 60 mg/dL High HDL Cholesterol Serum or plasma cholesterol in VLDL measurement (mass/volume)Ordered By: Dr. Flores on 06-03-2022 Cholesterol in VLDL [Mass/Vol] 29 mg/dL 5-40 [facility] Serum or plasma creatinine m easurement (mass/volume)Ordered By: Dr. Flores on 06-03-2022 Creatinine [Mass/Vol] 1.07 mg/dL 0.55-1.02 [facility] Comment on above: The validity of the calculated GFR & GFRAA in patients over 70 years has not been determined. Clinical correlation is essential. Serum or plasma ferritin silvia surement (mass/volume)Ordered By: Dr. Flores on 06-03-2022 Ferritin [Mass/Vol] 65 ng/mL 8-252 [facility] Serum or plasma iron saturat ion measurement (mass fraction)Ordered By: Dr. Flores on 06-03-2022 Iron saturation [Mass fraction] 11.5 % 15.0-55.0 [facility] Serum or plasma low density lipoprotein (LDL) cholesterol measurement (mass/volume)Ordered By: Dr. Flores on 06-03-2022 Cholesterol in LDL [Mass/Vol] 127 mg/dL 0-130 [facility] Serum or plasma urea nitroge n measurement (mass/volume)Ordered By: Dr. Flores on 06-03-2022 Urea nitrogen [Mass/Vol] 23 mg/dL 7-18 [facility] Thin prep Papanicolaou smear with manual screeningOrdered By: Dr. Flores on 06-03-2022 Thin prep Papanicolaou smear with manual screening 7 5-15 [facility] Whole blood hemoglobin A1c/t otal hemoglobin ratio (mass fraction)Ordered By: Dr. Flores on 06-03-2022 HbA1c (Bld) [Mass fraction] 5.4 % 3.8-5.6 [facility] Comment on above: Normal < 5.7 % Predi abetic 5.7 - 6.4 % Diabetic >or= 6.5 % Please note range changes. CORONAVIRUS 2019 BY PCRon SARS-CoV-2 (COVID-19) RNA BALJIT+probe Ql (Unsp spec) Detected Abnormal Not Detected [facility] Comment on above: Result Comment: . This assay is designed to detect the N, ORF1ab and/or S genes of SARS-CoV-2 via nucleic acid amplification. A Negative (NOT DETECTED) result does not preclude 2019-nCoV infection since the adequacy of sample collection and/or low viral burden may result in presence of viral nucleic acids below the clinical sensitivity of this test method. Negative (NOT DETECTED) result should not be used as the sole basis for treatment or other patient management decisions. Rather negative results should be combined with clinical observations, patient history, and epidemiological information to make patient management decisions. Fact sheet for providers: https://www.fda.gov/media/768134/download Fact sheet for patients: https://www.fda.gov/media/428909/download This test has received FDA Emergency Use Authorization (EUA) and has been verified by [facility] ([facility]). This test is only authorized for the duration of time that circumstances exist to justify the authorization of the emergency use of in vitro diagnostic tests for the detection of SARS-CoV-2 virus and/or diagnosis of COVID-19 infection under section 564(b)(1) of the Act, 21 U.S.C. 360bbb-3(b)(1), unless the authorization is terminated or revoked sooner. [facility] is certified under CLIA-88 as qualified to perform high complexity testing. Testing is performed in the [facility] laboratories located at [address] [place] [address]. Performed By: #### C OV19 #### [address] [place] [address] Covid 19 Resultson 1 SARS-CoV-2 (COVID-19) RNA BALJIT+probe Ql (Unsp spec) POSITIVE COVID-19 Test Coronaviruses are common world-wide and are the cause of many common colds. SARS-COV2 is a new coronavirus that began circulating worldwide in 2019 so we are calling it COVID-19. It has been estimated that four out of five patients with COVID-19 will recover at home without the need for medical attention. Symptoms of COVID-19 may include cough, fever, shortness of breath, loss of taste or smell and other flu-like symptoms including chills, sore muscles, sore throat, and headache. Severe illness is more common in older people and people with other health problems such as high blood pressure, obesity, and immune system problems. If the test is positive, you have COVID-19. You will be contacted by the ordering physicians office and instructed to remain on home isolation, in accordance with CDC guidelines. You may also be contacted by the [facility] to see if any of your close contacts may have been exposed to the virus and need to quarantine. If the test is negative, you likely do not have COVID-19 at this time, but you still may have a different illness that can spread to other people (like Influenza, or the Flu) and could still be at risk for getting COVID-19. We recommend that you stay away from other people to limit the spread of illness until your symptoms are improving and you are fever-free for 24 hours without the use of fever lowering medications such as acetaminophen or ibuprofen. No test is 100% accurate so if you are still concerned you may have COVID-19, talk to your doctor about the need to continue to stay away from others. Medicines Unless your provider told you not to use the following: Acetaminophen (Tylenol and others) is generally safe. Anti-inflammatory medications, such as Ibuprofen (Advil or Motrin) or Naproxen (Aleve) can also be used. Ecdh-dui-losrtap cough and cold medicines can be used according to the instructions on the package. Some afjd-uyj-vxxqgbx medicines also contain acetaminophen. Make sure you are not taking more than your recommended dose. For those not hospitalized, there is no specific treatment available for this illness. Antibiotics do not treat Coronaviruses. Follow-Up Follow up with your doctor by scheduling a virtual visit or consider follow-up at one of our urgent care fever clinics. If you are having difficulty breathing, or are very weak and having difficulty standing, this is a medical emergency. Call 911 or have someone take you to the nearest emergency room immediately. If possible, wear a facemask. Additional guidance from the CDC for patients who tested POSITIVE for COVID-19 How to isolate: Isolate yourself in a specific room at home and limit your contact with others. Use a separate bathroom from other members of the household, when possible. Leave home only to get essential medical care. Do not go to work, school or public areas. Avoid using public transportation, ride-sharing, or taxis. Restrict contact with pets and other animals. If you must care for your pet or be around animals while you are sick, wash your hands before and after your interaction and wear a facemask. Make sure that shared spaces in the home have good airflow, such as by an air conditioner or an opened window, weather permitting. Personal Hygiene Procedures: Wear a face mask when in the same room as other people or pets. If a face mask interferes with your breathing, others should wear a mask when sharing space with you. Frequent hand-washing: wash your hands with soap and water for at least 20 seconds. If soap and water are not available, use alcohol-based hand sheet metal erector. Avoid touching your eyes, nose, and mouth with unwashed hands. Household Hygiene Procedures: Avoid sharing personal household items such as dishes, glassware, cups, eating utensils, towels or bedding with other people or pets in your home. After use, these items should be washed with soap and hot water. Disinfect all high-touch surfaces every day with antibacterial cleaning solutions such as Lysol wipes, bleach, cleansers, etc. High-touch surfaces include tabletops, doorknobs, bathroom fixtures, toilets, phones, keyboards, tablets and bedside tables. Immediately clean any surfaces that may have blood, poop or body fluids on them, using antibacterial cleaning solutions such as Lysol wipes, bleach, cleansers, etc. If clothing or bedding come into contact with blood, poop or body fluids, they should be washed immediately. Follow the directions on the laundry detergent and clothing labels but hot water is recommended when possible. Stopping home isolation precautions: If possible, consult your doctor before stopping home isolation precautions. According to the CDC, you can discontinue home isolation precautions when you have met both of these criteria: Your fever and respiratory symptoms have been gone for 24 alphonso (more content not included)... [facility] CORONAVIRUS 2019 BY PCRon DATE OF SYMPTOM ONSET [YYYYMMDD]? [id number] [facility] Comment on above: Performed By: #### C OV19 #### [facility] [id number] [place] [address] Lab Specimen Source Nasal, Nasopharyngeal [facility] Comment on above: Performed By: #### C OV19 #### [facility] [address] [place] [address] Provider Note - ED v3on 10-2 Provider Note - ED v3 Provider Note: Chart Review HISTORY OF PRESENTING ILLNESS HARITHA is a 60 year old Female and was seen by me at 13-Feb-2021 14:31. The historian is the patient. Triage Information: Most recent Vital Sign Value Date PAST MEDICAL HISTORY ALLERGIES/INTOLERANC ES: Allergy Allergen: codeine Type: Drug Reaction: Resp Distress Allergen: sulfa drugs Type: Drug Category Reaction: Hives/Urticaria HEALTH HISTORY: No known health issues. Family history: no pertinent history. 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 OUTPATIENT MEDICATIONS: Home Medications Review Status for Reconciliation: Complete Med Status: Patient Currently Takes Medications Drug Name: amoxicillin-clavulan ate 875 mg-125 mg oral tablet Instructions: 1 tab(s) orally 2 times a day Drug Name: Flonase 50 mcg/inh nasal spray Instructions: 1-2 spray(s) in each nostril once a day Drug Name: Diflucan 150 mg oral tablet Instructions: 1 tab(s) orally once at first sign of yeast infection SIGNIFICANT EVENTS: No known significant events or known past surgical history aside from BTL. DISPLAY FABRICATION SUPERVISOR: Is : no Is : no CRITICAL CARE VITAL SIGNS: Temperature C: 37 degrees C. Temperature F: 98.7 degrees F. Temperature site: temporal. Blood Pressure: 130 mm/Hg / 82 mm/Hg Blood Pressure Position: sitting. Blood Pressure Source: brachial left. Heart Rate: 76 beats per minute Respiratory Rate: 16 breath per minute Pulse Oximetry: 96 %. Patient on: room air. MDM MDM/ED COURSE: This note was generated with voice recognition software and may contain errors including spelling, grammar, syntax, and misrecognization of what was dictated CHIEF COMPLAINT sinus infection HISTORY OF PRESENT ILLNESS Patient presents today with complaints of mild fatigue, sinus pressure and congestion (not much nasal drainage), ears feeling clogged, and a mild, semi-productive cough x 1 week. Reports also had sore throat, chills, and body aches, but these have improved since onset. Reports feels a little better overall except for the nasal pressure has increased in the past few days. She denies any fever, ear pain, headaches, abdominal pain, chest pain, wheezing/shortness of breath, rashes, urinary symptoms, nausea/vomiting, and diarrhea. Denies any lightheadedness or dizziness; no changes in mental status. Appetite is slightly decreased but is able to drink fluids without difficulty; denies any loss of sense of taste or smell. Has been taking Mucinex without much relief; no other ehby-pam-vbyeoch medications or home remedies for symptom management. No known ill contacts. Has not received the COVID-19 vaccine or ever had COVID infection, to her knowledge. REVIEW OF SYSTEMS 10 systems reviewed negative with exception of history of present illness listed above PHYSICAL EXAMINATION General: Mildly ill-appearing, well nourished female; alert and oriented; in no acute distress. Sitting comfortably on exam table. Non-dyspneic. Eyes: Pupils equal, round and reactive to light. No conjunctival erythema; no scleral icterus. HENT: + frontal, ethmoid, and maxillary sinus tenderness; + audible nasal congestion. Airway patent, TMs with bilat fluid effusions bilat, ear canals clear bilaterally. Nasal mucosa injected and edematous. Oral mucosa moist. Posterior pharynx pink but without vesicles or oropharyngeal exudate aside from PND. Uvula is midline. Managing oral secretions without difficulty. Neck: Supple. Mildly tender, mobile anterior cervical lymphadenopathy bilat. Trachea is midline. Respiratory: Respirations easy and unlabored, Breath sounds equal. Lungs are clear to auscultation; no wheezes, rhonchi, or rales; has good air movement throughout. Mild, semi-productive cough noted. Non-dyspneic with ambulation; able to maintain SpO2. Cardiovascular: Normal rate, Regular rhythm. Normal S1S2. No m/r/g. No peripheral edema. Gastrointestinal: Soft, non-tender, non-distended; no palpable masses or organomegaly. Bowel sounds normoactive. Musculoskeletal: Grossly normal; appropriate for age. Integumentary: [place], warm, dry, and Intact. No rashes or skin discoloration appreciated. Good skin turgor. Neurologic: Alert and oriented, no gross deficits. Cognition and Speech: Oriented, Speech clear and coherent. Psychiatric: Cooperative, Appropriate mood & affect. MEDICAL DECISION MAKING Course: Worsening; stable. Impression/Plan: I have reviewed the COVID-19 algorithm, and counseled pt on COVID-19 current recommendations. Symptoms consistent with viral sinusitis, but reviewed other potential etiologies, and MLT swab obtained (using proper PPE) for COVID-19 testing to err on the side of caution. Due to severity and duration of sxs, will begin antibiotic treatment with Augmentin; rx for Diflucan sent, per pt request - can take at first sign of yeast infection. (more content not included)... Normal [facility] Vital Signs Date Time Vital Sign Value Performing Clinician Faci lity 01-14-2025 10:31-0400 Body height 162.[address] Joe Waters MD Work Phone: 3(486)525-541886 [place] [address] 01-14-2025 10:31-0400 Body mass index (BMI) [Ratio] 24.4 kg/m2 Dr. Joe Waters MD Work Phone: 0(636)684-277786 [place] [address] 01-14-2025 10:31-0400 Body weight 64.[address] Joe Waters MD Work Phone: 1(841)511-512486 [place] [address] 01-14-2025 10:31-0400 Diastolic blood pressure 76 mm[Hg] Dr. Joe Waters MD Work Phone: 6(766)585-482086 [place] [address] 01-14-2025 10:31-0400 Systolic blood pressure 122 mm[Hg] Dr. Joe Waters MD Work Phone: 0(964)945-911186 [place] [address] 08-03-2024 13:30-0400 Body height 162.[address] Joe Waters MD Work Phone: 9(209)185-521186 [place] [address] 08-03-2024 13:30-0400 Body mass index (BMI) [Ratio] 24.4 kg/m2 Dr. Joe Waters MD Work Phone: 4(230)786-430386 [place] [address] 08-03-2024 13:30-0400 Body weight 64.[address] Joe Waters MD Work Phone: 4(563)176-684286 [place] [address] 08-03-2024 13:30-0400 Diastolic blood pressure 84 mm[Hg] Dr. Joe Waters MD Work Phone: 4(412)509-604786 [place] [address] 08-03-2024 13:30-0400 Systolic blood pressure 125 mm[Hg] Dr. Joe Waters MD Work Phone: 5(846)992-573886 [place] [address] 08-01-2023 10:00-0400 Body height 162.[address] Joe Waters Work Phone: 6(391)617-341786 [place] [address] 08-01-2023 09:54-0400 Body mass index (BMI) [Ratio] 25.5 kg/m2 Dr. Joe Waters Work Phone: 4(198)354-693486 [place] [address] 08-01-2023 09:54-0400 Body weight 67.[address] Joe Waters Work Phone: 1(204)500-489286 [place] [address] 08-01-2023 09:54-0400 Diastolic blood pressure 73 mm[Hg] Dr. Joe Waters Work Phone: 8(363)131-081686 [place] [address] 08-01-2023 09:54-0400 Systolic blood pressure 110 mm[Hg] Dr. Joe Waters Work Phone: 7(965)221-854286 [place] [address] 03-21-2023 09:16-0500 Body height 162.[address] Joe Waters Work Phone: 6(911)013-402986 [place] [address] 03-21-2023 09:10-0500 Body mass index (BMI) [Ratio] 27.3 kg/m2 Dr. Joe Waters Work Phone: 8(771)829-190386 [place] [address] 03-21-2023 09:10-0500 Body weight 72.[address] Joe Waters Work Phone: 4(828)433-351586 [place] [address] 03-21-2023 09:10-0500 Diastolic blood pressure 84 mm[Hg] Dr. Joe Waters Work Phone: 2(473)866-827686 [place] [address] 03-21-2023 09:10-0500 Systolic blood pressure 126 mm[Hg] Dr. Joe Waters Work Phone: 4(096)014-445586 [place] [address] 06-03-2022 08:00-0500 Body height 162.56 cm No Primary Care Physician [facility] 06-03-2022 08:00-0500 Body mass index (BMI) [Ratio] 27.9 kg/m2 No Primary Care Physician [facility] 06-03-2022 08:00-0500 Body weight 73.93 kg No Primary Care Physician [facility] 02-13-2021 16:14-0400 Body height 162.5 cm Text Entry [facility] 02-13-2021 16:14-0400 Body temperature 98.6 [degF] Text Entry [facility] 02-13-2021 16:14-0400 Diastolic blood pressure 82 mm[Hg] Text Entry [facility] 02-13-2021 16:14-0400 Heart rate 76 /min Text Entry [facility] 02-13-2021 16:14-0400 Respiratory rate 16 /min Text Entry [facility] 02-13-2021 16:14-0400 SaO2% (BldA) [Mass fraction] 96 % Text Entry [facility] 02-13-2021 16:14-0400 Systolic blood pressure 130 mm[Hg] Text Entry [facility] Encounters Encounter Date Encounter Type Care Provider Facility Start: 02-01-2025 ambulatory Fernanda Kohli NP Facil ity:[facility] Start: 01-14-2025 End: 01-14-[address] Suki Flores MD -[facility] Start: 01-14-2025 End: 01-14-[address] Joe Waters MD Work Phone: [facility] Start: 09-25-2024 End: 09-25-[address] Joe Waters MD Work Phone: [facility] Work Phone: Start: 09-25-2024 End: 09-25-[address] Suki Flores MD -[facility] Work Phone: Start: 09-25-2024 End: 09-25-2024 ambulatory Suki Flores Facility:[facility] Start: 08-03-2024 Encounter for gynecological examination (general) (routine) without abnormal findings Suki Flores [facility] Start: 08-03-2024 End: 08-03-[address] Suki Flores MD -[facility] Work Phone: Start: 08-03-2024 End: 08-03-[address] Suki Flores MD [facility] Start: 08-03-2024 End: 08-03-2024 ambulatory Joe Waters Facility:[facility] Start: 08-01-2023 End: 08-01-[address] Joe Waters Work Phone: [facility] Work Phone: Start: 08-01-2023 End: 08-01-[address] Joe Waters Work Phone: [facility]-Laboratory, Specimen Work Phone: Start: 08-01-2023 End: 08-01-[address] Joe Waters Work Phone: [facility] Work Phone: Start: 03-21-2023 End: 03-21-[address] Joe Waters Work Phone: [facility] Work Phone: Start: 03-21-2023 End: 03-21-[address] Joe Waters Work Phone: [facility]Laboratory[facility] Specimen Work Phone: Start: 03-21-2023 End: 03-21-[address] Joe Waters Work Phone: [facility] Work Phone: Start: 02-10-2023 End: 02-10-[address] Joe Waters Work Phone: [facility] Work Phone: Start: 10-27-2022 End: 10-27-2022 ambulatory Jimi Olivera PA-C Work Phone: General Surgery Comment on above: Tubular adenoma (Alvina sanjay Dx) Start: 10-27-2022 End: 10-27-2022 Telemedicine consultation with patient Jimi Olivera PA-C Work Phone: [facility] Start: 10-14-2022 End: 10-14-2022 ambulatory JOE WATERS Facility:[facility] Start: 09-23-2022 End: 09-24-2022 ambulatory [facility] Facility:[facility] Start: 09-23-2022 Encounter for stas l adult medical examination without abnormal findings [facility] Start: 09-02-2022 End: 09-03-2022 ambulatory LUCIO ONEIL Facility:[facility] Start: 06-17-2022 End: 06-17-2022 ambulatory No Primary Care Physician [facility] Work Phone: Start: 06-17-2022 End: 06-17-2022 Patient encounter procedure No Primary Care Physician [facility] Start: 06-03-2022 End: 06-03-2022 ambulatory No Primary Care Physician [facility] Work Phone: Start: 06-03-2022 End: 06-03-2022 Patient encounter procedure No Primary Care Physician [facility] Start: 06-03-2022 End: 06-03-2022 Patient encounter procedure No Primary Care Physician [facility] Start: 02-13-2021 End: 02-13-2021 Emergency department patient visit Bailey Miguel [facility] 01 Procedures Date Procedure Procedure Detail Performing Clinician Start: 09-25-2024 Screening mammography Almaz Waters MD Work Phone: Start: 02-10-[address] Leticia Waters Work Phone: Start: 10-14-2022 Colonoscopy Jimi arredondo PA-C Work Phone: Start: 06-17-2022 Ultrasonography of breast No Primary Care Physician Start: 06-03-2022 Screening mammography N o Primary Care Physician Start: 06-07-2016 Mammography Jimi Ning arredondo PA-C Work Phone: Cytopathology proced ure, preparation of smear, genital source No Primary Care Physician Investigation of tra nsfusion reaction No Primary Care Physician Plan of Treatment Date Care Activity Detail Author Start: 10-15-2027 Colonoscopy COLONOSCOPY [facility] Start: 10-15-2027 COLORECTAL CANCER SCREENING COLORECTAL CANCER SCREENING [facility] Start: 04-18-2024 Mammography MAMMOGRAM [facility] Comment on above: Postponed from 06/07 (Postponed To Appropriate Date) Start: 04-18-2023 HPV TESTING HPV TESTING [facility] Comment on above: Postponed from 03/24 (Postponed To Appropriate Date) Start: 12-17-2022 Influenza vaccination INFLUENZA (#1) [facility] Start: 06-03-2022 Patient referral [facility] Work Phone: Start: 03-24-2020 PAP TESTING PAP TESTING [facility] Start: 10-18-2007 COLOGUARD (FIT-DNA) COLOGUARD (FIT-D NA) [facility] Start: 10-18-[address] COLONOGRAPHY [facility] Start: 10-18-2007 DIABETES SCREEN DIABETES SCREEN [facility] Start: 10-18-2007 FECAL OCCULT BLOOD FECAL OCCULT BLOO D [facility] Start: 10-18-2007 LIPID SCREEN LIPID SCREEN [facility] Start: 10-18-2007 SIGMOIDOSCOPY SIGMOIDOSCOPY [facility] Start: 1981 Urine microalbumin profile DTAP,TDAP,TD (1 - Tdap) [facility] Start: 1980 HEPATITIS C SCREENING HEPATITIS C SC [facility] Start: 1980 HIV SCREENING HIV SCREENING [facility] Start: 04-19-1963 COVID-19 VACCINE (#1) COVID-19 VACCI NE (#1) [facility] CBC W Auto Different ial panel - Blood [facility] Hemoglobin A1c/Hemoglobin.total in Blood [facility] Lipid 1996 panel - S darling or Plasma [facility] MG Breast - bilatera l Screening [facility] Patient referral [facility] Work Phone: Thyroid stimulating hormone measurement [facility] Pelvis [facility] Immunizations Immunization Date Immunization Notes Care Provider [place] 06-11-2021 zoster vaccine recombinant Jimi Sachse PA-C Work Phone: [facility] Work Phone: 04-07-2021 zoster vaccine recombinant Jimi Jarod PA-C Work Phone: [facility] Work Phone: 09-06-2013 measles, mumps and rubella virus vaccine Jimi Jarod PA-C Work Phone: [facility] Work Phone: 03-29-2012 influenza virus vaccine, whole virus Jimi Sachse PA-C Work Phone: [facility] Work Phone: Payers Date Payer Category Payer Self-pay [id number] 2022 Medicaid [id number] 2022 Medicaid [facility]ICAID [facility] MEDICAID [facility] [id number] 2022-Present [phone] [address] [place] [id number] Medicaid [id number] Unknown [employer] [place] [employer] Unknown [employer] . [id number] Unknown [id number] Unknown [id number] Unknown [id number] Unknown [id number] Unknown [id number] Unknown [id number] Social History Date Type Detail Facility [facility] Start: 06-03-2022 End: 08-01-2023 Tobacco smoking consumption unknown [facility] Start: 1960 Sex Assigned At Female [facility] Start: 02-08-2011 End: 08-03-2024 Tobacco smoking status NHIS Never smoked tobacco [facility] Work Phone: Start: 02-08-2011 Tobacco use and exposure Smokeless tobacco non-user [facility] Work Phone: Start: 10-14-2022 Alcohol intake Current drinke r of alcohol (finding) [facility] Start: 09-02-2022 End: 10-14-2022 History of Social function [facility] Work Phone: Start: 09-02-2022 End: 10-14-2022 Tobacco use panel [facility] Work Phone: Adult Depression Screening Assessment 0 [facility] Work Phone: Start: 09-23-2022 [facility] Start: 1960 Sex Assigned At Not on file [facility] Clinical Notes 09-02-2022 to 01-14-2025 Note Date & Type Note Facility 01-14-2025 Progress note [facility] 08-03-2024 Evaluation note Diagnosis Onset Date Resolution Climacteric acute August 03 025 1:19pm Dyspareunia chronic August 03 025 1:19pm Encounter for routine gynecological examination noneactive August 03, 2024 1:19pm [facility] Work Phone: 1(778) 537-425804-15-2024 NotePap Smear Specimen AdequacyApril 2023 12:15pmComment.Satisfactory for evaluation. No endocervical component is identified.[facility] A#[id number] [facility] CenterComment on above:Satisfactory for evaluation. No endocervical component is identified. 10-27-2022 NoteHNO ID: [id number] Author: Jimi Olivera PA-C Service: ? Author Type: Physician Machine Whitener Type: Progress Notes Filed: 10/29/2022 2:56 PM Note Text: In lieu of an in-person visit due to COVID-19 concerns, a virtual visit was performed on the patient. Patient is aware that I am not fully able to assess symptoms and do a full physical examination including vital signs assessment at this time. Patient consents to this encounter. FOLLOW UP VISIT - ENDOSCOPY NAME: Haritha Kelly [facility] NO.: [id number] DATE OF SERVICE: 10/27/2022 : 1960 REFERRING PHYSICIAN: Joe Waters MD Haritha is a patient I am following with Dr. Oneil for screening colonoscopy. Dr. Oneil performed lower endoscopy on 10/14/22. The patient was found to have a small polyp which was removed from the sigmoid colon. Pathology demonstrated: FINAL DIAGNOSIS A. Sigmoid colon, polyp, biopsy: -Tubular adenoma The patient notes no complaints since the procedure. Assessment IMPRESSION: s/p colonoscopy with polypectomy-tubular adenoma PLAN: The operative findings and pathology report were reviewed with the patient, and the patient has had the opportunity to ask questions and have questions answered. If the patient notes any problems or changes in bowel function, the patient should contact me immediately. Otherwise I recommend follow up endoscopy in 5 years Patient verbalized understanding of all above and agreed with the plan Diagnoses: (D36.9) Tubular adenoma (primary encounter diagnosis) I spent a total of 21 minutes on the date of the service which included preparing to see the patient, completing clinical documentation, obtaining and/or reviewing separately obtained history, counseling and educating the patient/family/caregiver, independently interpreting results (not separately reported), and communicating results to the patient/family/caregiver. [facility] History of Present illness Narrative* Jiim Olivera PA-C - 10/27/2022 10:59 AM EDT In lieu of an in-person visit due to COVID-19 concerns, a virtual visit was performed on the patient. Patient is aware that I am not fully able to assess symptoms and do a full physical examination including vital signs assessment at this time. Patient consents to this encounter. FOLLOW UP VISIT - ENDOSCOPY NAME: Haritha Kelly Hugh [facility] NO.: [id number] DATE OF SERVICE: 10/27/2022 : 1960 REFERRING PHYSICIAN: Joe Waters MD Haritha is a patient I am following with Dr. Oneil for screening colonoscopy. Dr. Oneil performedlower endoscopy on 10/14/22. The patient was found to have a small polyp which was removed from the sigmoid colon. Pathology demonstrated: FINAL DIAGNOSIS A. Sigmoid colon, polyp, biopsy: -Tubular adenoma The patient notes no complaints since the procedure. Assessment IMPRESSION: s/p colonoscopy with polypectomy-tubular adenoma PLAN: The operative findings and pathology report were reviewed with the patient, and the patient has hadthe opportunity to ask questions and have questions answered. If the patient notes any problems or changes in bowel function, the patient should contact me immediately. Otherwise I recommend follow up endoscopy in 5 years Patient verbalized understanding of all above and agreed with the plan Diagnoses: (D36.9) Tubular adenoma (primary encounter diagnosis) I spent a total of 21 minutes on the date of the service which included preparing to see the patient, completing clinical documentation, obtaining and/or reviewing separately obtained history, counseling and educating the patient/family/caregiver, independently interpreting results (not separately r eported), and communicating results to the patient/family/caregiver. Jimi Olivera PA-C documented [facility] NoteHNO ID: [id number] Author: Laine Hayden APRN.AUTO TECH Service: ? Author Type: Nurse Specialist Type: Progress Notes Filed: 09/24/2022 4:44 PM Note Text: SUBJECTIVE: COVID-19 VACCINE(1) Never done HEPATITIS C SCREENING Never done HIV SCREENING Never done DTAP,TDAP,TD(1 - Tdap) Never done LIPID SCREEN Never done DIABETES SCREEN Never done COLORECTAL CANCER SCREENING Never done MAMMOGRAM due on 06/07/2017 PAP TESTING due on 03/24/2020 HPV TESTING due on 03/24/2020 DEPRESSION ASSESSMENT Never done HPI Haritha Reese is a 61 year old female. PMH significat for ACTIVE PROBLEM LIST Obesity, Unspecified Menopausal Syndrome Dyspareunia Other Abnormal and Inconclusive Findings On Diagnostic Imaging of Breast Presents today to establish care with Joe Waters MD. Previous PCP: no current or recent visit, urgent care or similar only and DISPLAY FABRICATION SUPERVISOR: [facility] Last seen:05/2022 Labwork:05/2022 ER/Hospitalization:no Outside records:care everywhere DISPLAY FABRICATION SUPERVISOR: Dr Flores Colonoscopy: Dr Oneil has ordered prep. Completed: no it is scheduled. Notes generally in good health. She is active, weight is stable. Tries to eat a healthy diet. Notes intermittent constipation, 3-4 times per year helped with Miralax. No muscle crams at times. Had labwork at [facility] May 2022. Lab work [facility] June 03, 2022. BUN 23 creatinine 1.07 calcium 8.7 total cholesterol 209 triglycerides 145 HDL 53 LDL 127 VLDL 29 sodium 139 potassium 3.7 chloride 103 CO2 29 gap 7 estimated GFR 56 hemoglobin A1c 5.4% TIBC 347 iron 40-low iron saturation 11.5 low, ferritin 65. Labs ordered by DISPLAY FABRICATION SUPERVISOR. Notes not taking iron due to concern for possible constipation. Review of Systems Constitutional: Negative. Objective BP 126/82 Pulse 93 Resp 16 Ht 162.6 cm (5' 4) Wt 70.8 kg (156 lb) LMP 07/10/2014 SpO2 99% BMI 26.78 kg/m? Physical Exam Vitals and nursing note reviewed. Constitutional: Appearance: Normal appearance. HENT: Head: Normocephalic and atraumatic. Eyes: Conjunctiva/sclera: Conjunctivae normal. Neck: Thyroid: No thyromegaly. Vascular: Normal carotid pulses. No JVD. Cardiovascular: Rate and Rhythm: Normal rate and regular rhythm. Pulses: Carotid pulses are 2+ on the right side and 2+ on the left side. Radial pulses are 2+ on the right side and 2+ on the left side. Pulmonary: Effort: Pulmonary effort is normal. Breath sounds: Normal breath sounds. Abdominal: General: Bowel sounds are normal. Palpations: Abdomen is soft. Musculoskeletal: Right lower leg: No edema. Left lower leg: No edema. Skin: General: Skin is warm and dry. Neurological: General: No focal deficit present. Mental Status: She is alert and oriented to person, place, and time. ALLERGIES Allergen Reactions Codeine Shortness of Breath, Other: See Comments Sulfa (Sulfonamide * Other: See Comments, Hives Tramadol Itching Medication progesterone micronized (PROMETRIUM) 100 mg capsule GAVILYTE-G 236-22.74-6.74 -5.86 gram suspension TAKE 4000 ML BY MOUTH ONE TIME ONLY FOR 1 DOSE. REFER TO PRINTED PREP INSTRUCTIONS FROM PROVIDER estradiol (CLIMARA) 0.0375 mg/24 hr APPLY 1 PATCH EVERY 7 DAYS thiamine (VITAMIN B1) 100 mg tablet Take 100 mg by mouth once daily. multivitamins(DAILY MULTIVITAMIN TAB) Take one(1) tablet daily. calcium carbonate/vitamin d3(CALCIUM 600 + D(3) 600 MG-125 UNIT TAB) Take one(1) tablet twice daily. fish oil/omega-3 fatty acids(FISH OIL OMEGA 3-6-9 300 MG-1,000 MG CAP, DELAYED RELEASE) PAST MEDICAL HISTORY Diagnosis Date NONE Social History Tobacco Use Smoking status: Never Smokeless tobacco: Never Vaping Use Vaping Use: Never used Substance Use Topics Alcohol use: Yes Comment: 0-1 Drug use: No ASSESSMENT/PLAN: Routine medical exam Z00.00 (primary diagnosis) 2. Elevated serum creatinine - ICD9: 790.99, ICD10: R79.89 Endorse sufficient fluid intake, may need more when exercising or outside. - COMP METABOLIC PANEL 3. Constipation, unspecified constipation type - ICD9: 564.00, ICD10: K59.00 Endorse sufficient fluid intake, continue with fruits vegetables whole grains. MiraLAX as needed. - COMP METABOLIC PANEL - CBC + DIFF 4. Screening for lipid disorders - ICD9: V77.91, ICD10: Z13.220 - COMP METABOLIC PANEL - LIPID PANEL BASIC 5. High serum vitamin B12 - ICD9: 790.99, ICD10: R79.89 Stopped taking supplemental, should normalize off of supplement. Recheck. - VITAMIN B12 BLOOD 6. Encounter for immunization - ICD9: V03.89, ICD10: Z23 deferred - [employer] COVID-19 BIVALENT VACCINE, AGE 12+ YR - TDAP VACCINE, AGE 7+ YR (ADACEL, BOOSTRIX) 7. Special screening examination for viral disease - ICD9: V73.99, ICD10: Z11.59 - HEP C AB IA W/CONF SCRN 8. Screening for HIV (human immunodeficiency virus) - ICD9: V73.89, ICD10: Z11.4 - HIV 1 2 COMBO(AG/AB),WITH REFLEX TO DIFFERENTIATION 9. Encounter for screening mammogram f (more content not included)...[facility]05-18-2023 NoteHNO ID: [id number] Author: Lucio Oneil MD Service: ? Author Type: Physician Type: Progress Notes Filed: 09/02/2022 2:54 PM Note Text: HISTORY AND PHYSICAL Haritha Reese 1960 REFERRING PHYSICIAN: Lucio Oneil MD CHIEF COMPLAINT: Consult (colonoscopy) HPI: The patient is a 61 year old female referred for endoscopy. Haritha notes no history of colon complaints. The patient notes no history of upper GI complaints. Haritha has not undergone prior endoscopy. PAST MEDICAL HISTORY Diagnosis Date NONE PAST SURGICAL HISTORY Procedure Laterality Date CARPAL TUNNEL LIG/TRNSXJ FLP TUBE ABDL/VAG APPR UNI/BI 2002 Tubal ligation Current Outpatient Medications Medication Sig estradiol 0.025 mg/24 hr Apply 1 Patch as directed one time a week. thiamine (VITAMIN B-1) 100 mg tablet Take 100 mg by mouth once daily. fluconazole (DIFLUCAN) 150 mg tablet TAKE ONE(1) TABLET BY MOUTH WHEN FILLED THEN AGAIN IN 3DAYS IF STILL SYMPTOMATIC LACTOBACILLUS COMBO NO.6 (PROBIOTIC COMPLEX ORAL) Take by mouth. VITAMIN E MIXED/TOCOTRIENOL (VITAMIN E COMPLEX ORAL) Take by mouth. multivitamins(DAILY MULTIVITAMIN TAB) Take one(1) tablet daily. calcium carbonate/vitamin d3(CALCIUM 600 + D(3) 600 MG-125 UNIT TAB) Take one(1) tablet twice daily. fish oil/omega-3 fatty acids(FISH OIL OMEGA 3-6-9 300 MG-1,000 MG CAP, DELAYED RELEASE) peg 3350-Electrolytes (GOLYTELY) 236-22.74-6.74 -5.86 gram suspension Take 4,000 mL by mouth one time only for 1 dose. Refer to printed prep instructions from your provider. gabapentin (NEURONTIN) 100 mg capsule Take 2 capsules by mouth daily at bedtime. for hot flashes (Patient not taking: Reported on 09/02/2022) estradiol (ESTRACE) 0.01 % (0.1 mg/gram) vaginal cream 1/2 inch of cream to lower vagina qhs 2-3 times a week (Patient not taking: Reported on 09/02/2022) Vitamin B Comp with Vit C No.6 500-0.5 mg Tab Take by mouth. (Patient not taking: Reported on 09/02/2022) No current facility-administered medications for this visit. ALLERGIES: Codeine and Sulfa (Sulfonamide Antibiotics) PERSONAL HISTORY: Social History Tobacco Use Smoking status: Never Smokeless tobacco: Never Vaping Use Vaping Use: Never used Substance Use Topics Alcohol use: Yes Comment: Seldom Drug use: No FAMILY HISTORY: FAMILY HISTORY Problem Relation Age of Onset Diabetes Father Type 2 Hypertension Father REVIEW OF SYMPTOMS: The review of systems data was entered by the nurse and reviewed by me There are no exam notes on file for this visit. PHYSICAL EXAMINATION: General: The patient is 61 year old female, well nourished, well hydrated in no acute distress. The patient is oriented to time, place, and person. VITALS: Blood pressure 112/78, pulse 108, temperature 36.7 ?C (98.1 ?F), height 162.6 cm (5' 4), weight 70.8 kg (156 lb), last menstrual period 07/10/2014, SpO2 94 %. Body mass index is 26.78 kg/m?. HEENT: Normal cephalic, ataumatic, pupils are equally round, sclera are anicteric, mucous membranes are moist, oropharynx is clear. Neck has no masses, asymmetry or lymphadenopathy. Thyroid is unremarkable. Respiratory: Clear to auscultation and percussion. Normal respiratory excursion and pattern. Cardiac: Examination is regular rate and rhythm. Abdominal exam: Soft, nontender, with no palpable masses. No hepatosplenomegaly. No palpable hernias. Rectal exam: exam deferred Extremities: no clubbing, cyanosis or edema. No adenopathy. Other: LABORATORY VALUES: As Noted RADIOLOGIC STUDIES: As Noted Assessment IMPRESSION: Encounter for screening for malignant neoplasm of colon (primary encounter diagnosis) PLAN: I plan to perform lower endoscopy. We discussed the risks and benefits of the planned endoscopy. I have informed the patient that complications can occur including failure to complete the endoscopy and perforation. The patient had the opportunity to ask questions concerning the planned endoscopy. My staff has also explained the procedure to the patient in understandable terms and has given the patient printed material concerning the procedure. The patient freely consents to surgery. I plan to use golytely bowel preparation for endoscopy Diagnoses: (Z12.11) Encounter for screening for malignant neoplasm of colon (primary encounter diagnosis) Return to Clinic: The patient is instructed to follow-up with me 1 week post operatively. Lucio [facility]il III, [facility] Diagnosis Onset Date Resolution Status Climacteric acute Leg cramp acute Dyspareunia chronic Encounter for routine gynecological examination noneactive [facility] Work Phone: Evaluation note* Diagnosis Tubular adenoma- Primary Benign neoplasm of unspecified site documented [facility] Diagnosis Onset Date Resolution Status Climacteric acute Endocervical polyp acute Postmenopausal bleeding acut e [facility] Work Phone: Evaluation note* Diagnosis Onset Date Resolution Status Climacteric acute Dyspareunia chronic Encounter for routine gynecological examination noneactive [facility] Work Phone: Evaluation note* Diagnosis Onset Date Resolution Status Admit Date Postmenopausal bleeding resolved S epteer 2024 10:29am [facility] Work Phone: Hospital Discharge instructionsAmbulatory Orders* General Surgery Location: None Selected [facility] Work Phone: Progress note Author Fernanda Kohli [facility] Note Date/Time January 14, 2025 10:48am 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 Is patient in pain?: No Allergies codeine Allergy (Unknown, Verified 01/14/25 10:41) Unknown Sulfa (Sulfonamide Antibiotics) Allergy (Unknown, Verified 01/14/25 10:41) Unknown Medications ?Medication ?Instructions ?Recorded ?Confirmed ?Type omega-3 fatty acids 1,000 mg 1,000 mg PO DAILY 9 01/14/25 History capsule (Fish Oil Concentrate) multivitamin,[id number] 1 tab PO DAILY 11/26/19 01/14/25 History (Complete Multivitamin tablet) calcium 600 mg (as cap PO 04/02/21 01/14/25 His tory carbonate)-vitamin D3 12.5 mcg (500 unit) capsule (Calcium with Vit D3) estradiol 0.01% (0.1 mg/gram) See Rx Instructions vagi nal 08/03/24 01/14/25 Rx vaginal cream (Estrace) .COMPLEX #42.5 grams estradiol 0.05 mg/24 hr semiweekly 1 patch transdermal 2XW #8 ea 08/03/24 01/14/25 Rx transdermal patch (Vivelle-Dot) fluconazole 150 mg tablet 150 mg PO ONCE PRN itch #1 T AB 08/03/24 01/14/25 Rx progesterone micronized 100 mg 100 mg PO .COMPLEX #90 caps 08/03/24 01/14/25 Rx capsule (Prometrium) Is last menstrual period known: No Post menopausal: Yes Patient : No : No PFSH PFSH Surgical History Hx of tubal ligation H/O carpal tunnel repair Family History Father Diabetes Social History number of children: 2 Smoking Status: Never smoker alcohol intake: current alcohol intake frequency: a few times a month substance use type: does not use caffeine: No what type of physical activity do you participate in: other details: crossfit frequency: 3-4 times per week seatbelt use: always do you feel safe at home: Yes additional social history: [place] Patient is a [place] History 2 Elective abortions Hx Para 2 Spontaneous abortions Hx # Term Pregnancies Ectopic pregnancies Hx # Pregnancies Multiple births # of living children Past Pregnancies Del. Date Name GA/Weeks Outcome Route Bth Weight Gen Labor Lgth Anesthesia Del Locatn Provider FOB Unknown 1983 [place] live - full term Unknown 1985 [place] live - full term HPI POST MENOPAUSAL BLEEDING Details: HARITHA REESE is a 64 year old who presents for EMB for postmenopausal bleeding. Had a day of light spotting a couple of weeks ago. Is on estradiol patch and daily prometrium plus vaginal estrogen cream. Has not been consistent with changing patch as directed. ROS Const Constitutional: Reports system reviewed and no additional complaints, except as documented Eyes Eyes: Reports system reviewed and no additional complaints, except as documented GI GI: Denies abdominal pain or change in bowel habits : Reports as per HPI Exam Const General: cooperative and no acute distress Orientation: oriented x3 General: bladder normal to palpation External Female Exam: normal external appearance and normal appearance of the urethra Urethra: normal appearance of the urethra Speculum Exam - Vagina: normal appearance of the vagina, normal vaginal discharge, no lesions and nontender Speculum Exam - Cervix: normal appearance of the cervix Bimanual Exam- Vagina & Uterus: normal bimanual exam, uterine size normal, bladder normal to palpation, uterine shape normal, uterine mobility normal and non- tender Bimanual Exam- Adnexa, other: normal adnexae, no masses and non-tender Office Procedures Endometrial Biopsy Endometrial Biopsy Test: Yes Not Applicable Consent Signed: Yes Time out checklist: patient, procedure, site marked/identified, positioning of patient, supplies available, allergies confirmed and team agrees on procedure Time out time: 10:43 tenaculum used: No dilator used: No Details: Cervix prepped with betadine and syringe pipelle inserted 8cm into uterus without complication. Specimen obtained and sent to lab for analysis. All instruments removed from vagina without complications. Excellent hemostasis noted. Coding Level of Care Code Attention Elodia Diagnoses Postmenopausal bleeding N95.0 CPT Codes Endometrial Biopsy (94236) Assessment and Plan Assessment and Plan (1) Postmenopausal bleeding: Status: Resolved Comment: 2022 lining 4mm. Uterus fluid extended: EMB negative. 12/2024: on HRT, spotting. EMB and US pending Orders: Orders Endometrial Biopsy Today N95.0 - Postmenopausal bleeding Pelvic w/ Transvaginal Today N95.0 - Postmenopausal bleeding Plan Reviewed S&S infection Notify of pathology and pelvic US results If normal, can monitor and discussed changing estrogen patch as directed 01/14/25 1049 <Electronically signed by Fernanda newman NP MLT-C> Date _ Fernanda Kohli NP MLT-C Cosigner Signature: Date (if applicable) CC: ~ [facility] Work Phone: Reason for referral (narrative)No reason for referral information availableWAdena P[facility] Work Phone: Summary Purpose Family History No Family History Records Found Relationship Condition Age at Onset Recorded Date/T singh father Diabetes mellitus Unknown Advance Directives No Advanced Directives Records FoundNo Advanced Directives Records FoundNo Advanced Directives Records Found Chief Complaint and Reason for Visit Chief 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 Reason for Visit Climacteric Leg cramp Dyspareunia Encounter for routine gynecological examination Chief 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 ABNORMAL MAMMOGRAM Reason for Visit Climacteric Leg cramp Dyspareunia Encounter for routine gynecological examination Chief Complaint N95.0 EMB Reason for Visit Climacteric Endocervical polyp Postmenopausal bleeding Chief Complaint 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) Reason for Visit Climacteric Dyspareunia Encounter for routine gynecological examination Chief Complaint Admit Date 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) August 03, 2024 1:1 9pm screening mammogram September 25, 2024 3:34 pm Reason for Visit Admit Date Climacteric August 03, 2024 1:1 9pm Dyspareunia August 03, 2024 1:1 9pm Encounter for routine gynecological exam ination August 03, 2024 1:19pm Chief Complaint Admit Date screening mammogram September 25, 2024 3:34 pm POST MENOPAUSAL BLEEDING January 14, 2025 10:29am Reason for Visit Admit Date Postmenopausal bleeding January 14, 2025 10:29am Additional Source Comments <item> Privacy Markings (unrecogniz ed section and content) Section Author: Helen Weinstein PROHIBITION ON REDISCLOSURE OF CONFIDENTIAL INFORMATION This notice accompanies a disclosure of information concerning a client made to you with the consent of such client. INFORMATION SOURCE (unrecogn ized section and content) DATE CREATED AUTHOR 02/18/2021 [facility] DATE CREATED AUTHOR AUTHOR'S ORGANIZ ATION 10/30/2022 [facility] DATE CREATED AUTHOR AUTHOR'S ORGANIZ ATION 01/30/2025 [facility] Care Teams (unrecognized sec tion and content) Team Status: Active Member Role Status Dates Terrence Butt Family Provider Active No Primary Care Physician Primary Care Provider Active Team Status: Inactive Member Role Status Dates No Primary Care Physician Primary Care Provider, Refer ring Provider Active Dr. Suki Flores MD Attending Provider Active Team Status: Inactive Member Role Status Dates No Primary Care Physician Primary Care Provider Active Dr. Suki Flores MD Attending Provider, Referr ing Provider Active Team Status: Inactive Member Role Status Dates No Primary Care Physician Primary Care Provider Active Dr. Suki Flores MD Attending Provider Active Dietetic Technician Relationship Specialty Start Date End Date Joe Waters MD [address] [place] [address] PCP - General Internal Medicine 09/23/22 Team Status: Active Member Role Status Dates Terrence Butt Family Provider Active Dr. Joe Waters MD Primary Care Provider Active Team Status: Inactive Member Role Status Dates Dr. Joe Waters MD Primary Care Provider, Referr ing Provider Active Fernanda Kohli MLT, MLT-C Attending Provider Active Team Status: Inactive Member Role Status Dates Dr. Suki Flores MD Attending Provider, Referr ing Provider Active Dr. Joe Waters MD Primary Care Provider Active Team Status: Inactive Member Role Status Dates Dr. Joe Waters MD Primary Care Provider Active Fernanda Kohli MLT, MLT-C Attending Provider, Referring Provider Active Team Status: Inactive Member Role Status Dates Dr. Joe Waters MD Primary Care Provider, Referr ing Provider Active Dr. Suki Flores MD Attending Provider Active Team Status: Inactive Member Role Status Dates Dr. Joe Waters MD Primary Care Provider Active Dr. Suki Flores MD Attending Provider, Referr ing Provider Active Team Status: Active Member Role Status Dates Dr. Joe Waters MD Primary Care Provider Active Team Status: Inactive Member Role Status Dates Dr. Joe Waters MD Primary Care Provider Active Start: August 03, 2024 End: August 03, 2024 Dr. Joe Waters MD Referring Provider Active Start: August 03, 2024 End: August 03, 2024 Dr. Suki Flores MD Attending Provider Active Start: August 03, 2024 End: August 03, 2024 Team Status: Inactive Member Role Status Dates Dr. Joe Waters MD Primary Care Provider Active Start: September 25, 2024 End: September 25, 2024 Dr. Suki Flores MD Attending Provider Active Start: September 25, 2024 End: September 25, 2024 Dr. Suki Flores MD Referring Provider Active Start: September 25, 2024 End: September 25, 2024 Team Status: Active Member Role/Relationship Status Dates Dr. Joe Waters MD Primary care physician Active Team Status: Inactive Member Role/Relationship Status Dates Dr. Joe Waters MD Primary care physician Active Start: September 25, 2024 End: September 25, 2024 Dr. Suki Flores MD Attending physician Active Start: September 25, 2024 End: September 25, 2024 Dr. Suki Flores MD Referring Provider Active Start: September 25, 2024 End: September 25, 2024 Team Status: Inactive Member Role/Relationship Status Dates Dr. Joe Waters MD Primary care physician Active Start: January 14, 2025 End: January 14, 2025 Dr. Joe Waters MD Referring Provider Active Start: January 14, 2025 End: January 14, 2025 Fernanda Kohli NP, MLT-C Attending physician Active Start: January 14, 2025 End: January 14, 2025 Team Status: Active Member Role/Relationship Status Dates Dr. Joe Waters MD Primary care physician Active Start: January 14, 2025 Dr. Suki Flores MD Attending physician Active Start: January 14, 2025 Dr. Suki Folres MD Referring Provider Active Start: January 14, 2025 Goals (unrecognized section and content) Goals may be documented in a n alternate sectionGoals may be documented in an alternate sectionGoals may be documented in an alternate sectionGoals may be documented in an alternate sectionGoals may be documented in an alternate sectionGoals may be documented in an alternate section Source Comments (unrecognize d section and content) In the event this informatio n is protected by the Federal Confidentiality of Alcohol and Drug Abuse Patient Records regulations: The Federal rules restrict any use of the information to criminally investigate or prosecute any alcohol or drug abuse patient.[facility] Reason for Visit (unrecogniz ed section and content) Reason Comments Follow Up FOR RECORDS PERTAINING TO PATIENTS WHO ARE OR HAVE BEEN ENROLLED IN A CHEMICAL DEPENDENCY/SUBSTANCEABUSE PROGRAM, SOME INFORMATION MAY BE OMITTED. This clinical summary was aggregated from multiple sources. Caution should be exercised in using it in the provision of clinical care. This summary normalizes information from multiple sources, and as a consequence, information in this document may materially change the coding, format and clinical context of patient data. In addition, data may be omitted in some cases. CLINICAL DECISIONS SHOULD BE BASED ON THE PRIMARY CLINICAL RECORDS. [facility]. provides no warranty or guarantee of the accuracy or completeness of information in this document.
--- OUTSIDE RECORDS SUMMARY | 2025-02-01 16:08 | XMS RPT_ITS | CCD ---
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 Suki Flores Attending Provider [phone] Joe Waters MD Primary Care Provider JIMI [...] Care Provider Dr. Joe Waters Referring Provider Kamlila MANAGEMENT CONSULTING, MANAGEMENT CONSULTING-C Fernanda Attending Provider [phone] Dr. Joe Waters Primary Care Provider Dr. Joe Waters Referring Provider Dr. Suki Flores Attending Provider [phone] Dr. Joe Waters MD Primary Care Provider Dr. Joe Waters MD Referring Provider [phone] Dr. Suki Flores MD Attending Provider [phone] Dr. Suki Flores MD Referring Provider [phone] Dr. Joe Waters MD Primary Care Physician Dr. Suki Flores MD Attending Physician Evelin OCAMPO, Dr. Joe Muse Referring Provider Kamilla MANAGEMENT CONSULTING-C, Fernanda Attending Physician [phone] Suki Flores Attending Unavailable Suki Flores Referring Unavailable Talampas, Joe D Primary Care Unavailable Kamilla MANAGEMENT CONSULTING, Fernanda Attending Unavailable Kamilla MANAGEMENT CONSULTING, Fernanda Referring Unavailable Talampas, Joe D Primary Care Unavailable Suki Flores Attending Unavailable Suki Flores Referring Unavailable Talampas, Joe D Primary Care Unavailable Kamilla MANAGEMENT CONSULTING, Fernanda Attending Unavailable Talampas, Joe D Primary Care Unavailable Talampas, Joe D Referring Unavailable Talampas, Joe D Referring Unavailable Suki Flores Attending Unavailable Sunilampandrew, Joe D Primary Care Unavailable Allergies Allergy Classification Reported Allergen(s) Allergy Type Date of Onset Reaction(s) Facility (9 sources) Codeine; Translations: [CODEINE] Drug Allergy 5 Shortness of Breath, Other: See Comments [facility] (1 source) Sulfonamides (Antibiotic) Hives/Urticaria [facility] (7 sources) Sulfonamides (Antibiotic); Translations: [SULFA (SULFONAMIDE ANTIBIOTICS)] Allergy to substance 5 Unknown [facility] (1 source) Sulfonamides (Antibiotic) Drug Allergy 5 Other: See Comments, Hives [facility] Work Phone: (2 sources) traMADol; Translations: [TRAMADOL] Drug Allergy 3 Itching [facility] Work Phone: (1 source) Codeine Drug Allergy 5 [facility] Repository (1 source) Sulfonamides (Antibiotic) Drug allergy (disorder) 5 [facility] Medications Current Medications Medication Drug Class(es) [...] 1 tablet by drew th once daily multivitamin,cp-zbcx-eestqzpk Active 1 T ABLET PO DAILY November 25, 2019 11:00pm Multivitamin,Rc-Iuur-Ypezxmw s (Complete Multivitamin) tablet (2 sources) Start: 11-26-2019 Start: 11-26-2019 Multivitamin,T r-Mqyg-Hfnkiwzk (Complete Multivitamin) tablet Active 1 {tbl} PO DAILY November 26, 2019 12:00am Mellette-3 Fatty Acids (Fish Oi l Concentrate) 1,000 mg capsule (6 sources) Start: 08-21-2018 take 1 capsule by mo ut once daily Start: 08-21-2018 take 1 capsule by mo uth once daily Mellette-3 Fatty Acids (Fish Oil Concentrate) 1,000 mg capsule Active 1000 mg PO DAILY August 21, 2018 12:00am Start: 08-21-2018 take 1 capsule by mo uth once daily Mellette-3 Fatty Acids (Fish Oil Concentrate) 1,000 mg capsule Active 1000 MG PO DAILY August 21, 2018 12:00am Start: 08-21-2018 take 1 capsule by mo uth once daily Mellette-3 Fatty Acids (Fish Oil Concentrate) 1,000 mg [...] one(1) tablet d aily. polyethylene glycol 3350 120151 mg / potassium chloride 2970 mg / sodium bicarbonate 6740 mg / sodium chloride 5860 mg / sodium sulfate 30661 mg powder for oral solution (1 source) [...] about stopping next year 2022 lining 4mm. Saxman jet fluid extended: EMB negative. 12/2024: on [...] Auto (Unsp spec) [#/Vol] 1.51 10*3/uL 0.83-4.51 [facility] Absolute neutrophil countOrd ered By: Suki Muellersimon on 01-14-2025 Neutrophils (Bld) [#/Vol] 3.4 10*3/uL 2.0-7.7 [facility] Automated lymphocyte count a s percentage of total leukocytesOrdered By: Suki Flores on 01-14-2025 Lymphocytes/100 WBC Auto (Unsp spec) 26.5 % 19-41 [facility] Basophil percentageOrdered B y: Suki Sandra on 01-14-2025 Basophils/100 WBC (Bld) 1.4 % High 0-1 [facility] CBC W/Diff, Automatedon 12-18 Absolute Lymph 1.51 X10 3/uL Normal 0.83-4.51 [facility] Comment on above: Performed By: #### L 100.0100, L501.9985, L500.4100, L501.9520 #### [facility] [address] [place], [address] Absolute Neut 3.4 X10 3/uL Normal 2.0-7.7 [facility] Comment on above: Performed By: #### L 100.0100, L501.9985, L500.4100, L501.9520 #### [facility] [address] [place], [address] Basophils/100 WBC (Bld) 1.4 % High 0-1 [facility] Comment on above: Performed By: #### L 100.0100, L501.9985, L500.4100, L501.9520 #### [facility] [address] [place], [address] Eosinophils/100 WBC (Bld) 2.3 % Normal 0-5 [facility] Comment on above: Performed By: #### L 100.0100, L501.9985, L500.4100, L501.9520 #### [facility] [address] [place], [address] Erythrocyte distribution width (RBC) [Ratio] 12.9 % Normal 11.6-14.6 [facility] Comment on above: Performed By: #### L 100.0100, L501.9985, L500.4100, L501.9520 #### [facility] [address] [place], [address] Hematocrit (Bld) [Volume fraction] 38.6 % Normal 37-47 [facility] Comment on above: Performed By: #### L 100.0100, L501.9985, L500.4100, L501.9520 #### [facility] [address] [place], [address] Hemoglobin (Bld) [Mass/Vol] 12.7 g/dL Normal 12.0-15.0 [facility] Comment on above: Performed By: #### L 100.0100, L501.9985, L500.4100, L501.9520 #### [facility] [address] [place], [address] IG% 0.500 Normal 0.0-0.9 [facility] Comment on above: Result Comment: IG% - Immature Granulocytes (promyelocytes, myelocytes and metamyelocytes) > 1% indicates that a LEFT SHIFT is Present. Performed By: #### L 100.0100, L501.9985, L500.4100, L501.9520 #### [facility] [address] [place], [address] Lymphocytes/100 WBC (Bld) 26.5 % Normal 19-41 [facility] Comment on above: Performed By: #### L 100.0100, L501.9985, L500.4100, L501.9520 #### [facility] [address] [place], [address] MCH (RBC) [Entitic mass] 30.2 pg Normal 27.0-32.0 [facility] Comment on above: Performed By: #### L 100.0100, L501.9985, L500.4100, L501.9520 #### [facility] [address] [place], [address] MCHC (RBC) [Mass/Vol] 32.9 g/dL Normal 32-36 [facility] Comment on above: Performed By: #### L 100.0100, L501.9985, L500.4100, L501.9520 #### [facility] [address] [place], [address] MCV (RBC) [Entitic vol] 91.7 fL Normal 81-99 [facility] Comment on above: Performed By: #### L 100.0100, L501.9985, L500.4100, L501.9520 #### [facility] [address] [place], [address] Monocytes/100 WBC (Bld) 9.8 % Normal 0-10 [facility] Comment on above: Performed By: #### L 100.0100, L501.9985, L500.4100, L501.9520 #### [facility] [address] [place], [address] Neutrophils/100 WBC (Bld) 59.5 % Normal 47-70 [facility] Comment on above: Performed By: #### L 100.0100, L501.9985, L500.4100, L501.9520 #### [facility] [address] [place], [address] Nucleated RBC (Bld) [#/Vol] 0 10*3/uL Normal 0-5 [facility] Comment on above: Performed By: #### L 100.0100, L501.9985, L500.4100, L501.9520 #### [facility] [address] [place], [address] Platelet mean volume (Bld) [Entitic vol] 11.0 fL Normal 6.2-12.0 [facility] Comment on above: Performed By: #### L 100.0100, L501.9985, L500.4100, L501.9520 #### [facility] [address] [place], [address] Platelets (Bld) [#/Vol] 230 10*3/uL Normal 150-450 [facility] Comment on above: Performed By: #### L 100.0100, L501.9985, L500.4100, L501.9520 #### [facility] [address] [place], [address] RBC (Bld) [#/Vol] 4.21 10*6/uL Normal 4.2-5.4 [facility] Comment on above: Performed By: #### L 100.0100, L501.9985, L500.4100, L501.9520 #### [facility] [address] [place], [address] RDW SD 42.8 fl Normal 35.1-43.9 [facility] Comment on above: Performed By: #### L 100.0100, L501.9985, L500.4100, L501.9520 #### [facility] [address] [place], [address] WBC (Bld) [#/Vol] 5.7 10*3/uL Normal 4.4-11.0 [facility] Comment on above: Performed By: #### L 100.0100, L501.9985, L500.4100, L501.9520 #### [facility] [address] [place], [address] Calculated very low density lipoprotein (VLDL) cholesterol measurementOrdered By: Suki Flores on 01-14-2025 Calculated very low density lipoprotein (VLDL) cholesterol measurement 18 mg/dL 5-40 [facility] Eosinophil percentageOrdered By: Suki Flores on 01-14-2025 Eosinophils/100 WBC (Bld) 2.3 % 0-5 [facility] Erythrocyte distribution wid th ratioOrdered By: Suki Flores on 01-14-2025 Erythrocyte distribution width (RBC) [Ratio] 12.9 % 11.6-14.6 [facility] Erythrocyte distribution wid th standard deviationOrdered By: Suki Flores on 01-14-2025 Erythrocyte distribution width (RBC) [Ratio] 42.8 fl 35.1-43.9 [facility] Hematocrit Auto (Bld) [Volum e fraction]Ordered By: Suki Flores on 01-14-2025 Hematocrit (Bld) [Volume fraction] 38.6 % 37-47 [facility] Hemoglobin A1con 01-14-2025 HbA1c (Bld) [Mass fraction] 5.3 % Normal <=5.6 [facility] Comment on above: Result Comment: Norm al < 5.7 % Prediabetic 5.7 - 6.4 % Diabetic >or= 6.5 % Please note range changes. Performed By: #### L 100.0100, L501.9985, L500.4100, L501.9520 #### [facility] [address] [place], [place], [address] Hemoglobin A1c percentageOrd ered By: Suki Flores on 01-14-2025 HbA1c (Bld) [Mass fraction] 5.3 % <5.7 [facility] Comment on above: Normal < 5.7 % Predi abetic 5.7 - 6.4 % Diabetic >or= 6.5 % Please note range changes. Hemoglobin measurementOrdere d By: Suki Flores on 01-14-2025 Hemoglobin (Bld) [Mass/Vol] 12.7 g/dL 12.0-15.0 [facility] Immature granulocytes/100 WB C Auto (Bld)Ordered By: Suki Flores on 01-14-2025 Immature granulocytes/100 WBC (Bld) 0.500 % 0.0-0.9 [facility] Comment on above: IG% - Immature Granu locytes (promyelocytes, myelocytes and metamyelocytes) > 1% indicates that a LEFT SHIFT is Present. LDL calc ser/plasOrdered By: Suki Flores on 01-14-2025 Cholesterol in LDL [Mass/Vol] 99 mg/dL [facility] Comment on above: Onsydwlulw=476-968 m g/dL & Higher Dewx=585 mg/dL or greaterFriedwald Equation for LDL-C Lipid Profileon 01-14-2025 CHOL:HDL 3.19 Normal [facility] Comment on above: Performed By: #### L 100.0100, L501.9985, L500.4100, L501.9520 #### [facility] [address] [place], [place], [address] Cholesterol [Mass/Vol] 170 mg/dL Normal <=200 [facility] Comment on above: Result Comment: Chol esterol level, Desirable <200 mg/dL Borderline high cholesterol 200-239 mg/dL High cholesterol >=240 mg/dL Recommendations of the NCEP Adult Treatment Panel for the following risk-cutoff thresholds for the [place] population. Performed By: #### L 100.0100, L501.9985, L500.4100, L501.9520 #### [facility] [address] [place], [address] Cholesterol in HDL [Mass/Vol] 53 mg/dL Normal [facility] Comment on above: Result Comment: Roro onal Cholesterol Education Program (NCEP) guidelines: <40 mg/dL: Low HDL-cholesterol (major risk factor for CHD) >= 60 mg/dL: High HDL-cholesterol (negative risk factor for CHD) HDL-cholesterol is affected by a number of factors, e.g. smoking, exercise, hormones, sex and age. Performed By: #### L 100.0100, L501.9985, L500.4100, L501.9520 #### [facility] [address] [place], [address] Cholesterol in LDL [Mass/Vol] 99 mg/dL Normal [facility] Comment on above: Result Comment: Bord gwixat=476-047 mg/dL Higher Kuch=150 mg/dL or greater Friedwald Equation for LDL-C Performed By: #### L 100.0100, L501.9985, L500.4100, L501.9520 #### [facility] [address] [place], [address] Cholesterol in VLDL [Mass/Vol] 18 mg/dL Normal 5-40 [facility] Comment on above: Performed By: #### L 100.0100, L501.9985, L500.4100, L501.9520 #### [facility] [address] [place], [address] Triglyceride [Mass/Vol] 90 mg/dL Normal [facility] Comment on above: Result Comment: The drugs N-Acetylcysteine and Metamizole may falsely depress this assay. Normal range: <150 mg/dL Borderline High: 150-199 mg/dL High: 200-499 mg/dL Very High: >500 mg/dL Performed By: #### L 100.0100, L501.9985, L500.4100, L501.9520 #### [facility] [address] [place], [address] MCV (mean corpuscular volume ) determinationOrdered By: Suki Flores on 01-14-2025 MCV (RBC) [Entitic vol] 91.7 fL 81-99 [facility] Mean corpuscular hemoglobin (MCH) determinationOrdered By: Suki Flores on 01-14-2025 MCH (RBC) [Entitic mass] 30.2 pg 27.0-32.0 [facility] Mean corpuscular hemoglobin concentration (MCHC) determinationOrdered By: Suki Flores on 01-14-2025 MCHC (RBC) [Mass/Vol] 32.9 g/dL 32-36 [facility] Mean platelet volume determi nationOrdered By: Suki Flores on 01-14-2025 Platelet mean volume (Bld) [Entitic vol] 11.0 fL 6.2-12.0 [facility] Monocyte percentageOrdered B y: Suki Flores on 01-14-2025 Monocytes/100 WBC (Bld) 9.8 % 0-10 [facility] Neutrophil percentageOrdered By: Suki Flores on 01-14-2025 Neutrophils/100 WBC (Bld) 59.5 % 47-70 [facility] Nucleated red blood cell per centageOrdered By: Suki Flores on 01-14-2025 Nucleated RBC/100 WBC (Bld) [Ratio] 0 % 0-5 [facility] Joinery Setter Out Office Visit Reporton 01-14-2025 Joinery Setter Out Office Visit Report [facility], [address] [place] [address] OFFICE VISIT Date of Service: 01/14/25 MR#: [id number] Acct: [id number] Name: HARITHA REESE Rep #: [id number] : 1960 Provider: MANAGEMENT CONSULTING-C Fernanda Hast ings Age/Sex: 64/F Location: [facility] [place] Status: Signed Intake Vital Signs 08/03/24 13:30 01/14/25 10:31 Height 5 ft 4 in 5 ft 4 in Weight: 142 lb 8 oz 142 lb 7 oz BMI 24.4 24.4 BP 125/84 H 122/76 H Intake Visit Reasons: POST MENOPAUSAL BLEEDING 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 Coding Level of Care Code Attention Medical Technologist Prn Diagnoses Postmenopausal bleeding N (more content not included)... Normal [facility] Platelet countOrdered By: Arun Flores on 01-14-2025 Platelets (Bld) [#/Vol] 230 10*3/uL 150-450 [facility] RBC Auto (Bld) [#/Vol]Ordere d By: Suki Flores on 01-14-2025 RBC (Bld) [#/Vol] 4.21 10*6/uL 4.2-5.4 [facility] Screening total cholesterol/ high density lipoprotein (HDL) cholesterol ratioOrdered By: Suki Flores on 01-14-2025 Cholesterol.total/Choles terol in HDL [Mass ratio] 3.19 {ratio} [facility] Serum or plasma cholesterol in HDL measurement (mass/volume)Ordered By: Suki Flores on 01-14-2025 Cholesterol in HDL [Mass/Vol] 53 mg/dL >40 [facility] Comment on above: National Cholesterol Education Program (NCEP) guidelines:<40 mg/dL: Low HDL-cholesterol (major risk factor for CHD)>= 60 mg/dL: High HDL-cholesterol (negative risk factor for CHD)HDL-cholesterol is affected by a number of factors, e.g. smoking, exercise, hormones, sex and age. Serum or plasma cholesterol measurement (mass/volume)Ordered By: Suki Flores on 01-14-2025 Cholesterol [Mass/Vol] 170 mg/dL <201 [facility] Comment on above: Cholesterol level, D esirable <200 mg/dLBorderline high cholesterol 200-239 mg/dLHigh cholesterol >=240 mg/dLRecommendations of the NCEP Adult Treatment Panel for the following risk-cutoff thresholds for the [place] population. Surgery Specimen Level Danny 01-14-2025 Surgery Specimen Level IV Patient Age/Sex Location Account Attending Physician [facility] 64[id number] S[facility] Flores MD Specimen: [id number] Received: 01/14/25 Status: ASHLEY Osei Num: [id number] Spec Type: ENDOM BX/C Subm Dr: Dr. [...] of the specimen may not survive processing. [place] 01/14/2025 CPT:43107 Patient Age/Sex Location Account Attending Physician HARITHA REESE 64/F [facility] [id number] Dr. Suki Flores MD Signed (signature on file) Dr. Verónica Ascencio MD 01/18/25 1519 Normal [facility] Comment on above: Performed By: #### P CHRISTY #### [facility] [place], [place], [id number] TSH DL <= 0.005 mIU/L QnOrde red By: Suki Flores on 01-14-2025 TSH Qn 2.420 uIU/mL 0.300-4.200 [facility] Thyroid Stim Hormone (TSH)on 01-14-2025 TSH 2.420 uIU/mL Normal 0.300-4.200 [facility] Comment on above: Performed By: #### L 100.0100, L501.9985, L500.4100, L501.9520 #### [facility] [address] [place], [place], [address] Triglycerides measurementOrd ered By: Suki Flores on 01-14-2025 Triglyceride [Mass/Vol] 90 mg/dL <199 [facility] Comment on above: The drugs N-Acetylcy steine and Metamizole may falsely depress this assay. Normal range: <150 mg/dLBorderline High: 150-199 mg/dLHigh: 200-499 mg/dLVery High: >500 mg/dL White blood cell (WBC) count Ordered By: Suki Flores on 01-14-2025 WBC (Bld) [#/Vol] 5.7 10*3/uL 4.4-11.0 [facility] Breast imaging reportOrdered By: Samreen Falcon on 09-25-2024 Study report [facility] Imaging Services [address] [place], [place] [address] SCRN MAMM (CAD)W/ANNETTE BILAT MR#: [id number] Acct: [id number] Name: HARITHA REESE Rep #: [id number] : 1960 F 63 From: Bishnu Conway MD PCP: Dr. Joe Waters MD Status: RE G CLI Study:SCRN MAMM (CAD)W/ANNETTE BILAT Date of Exa m: 09/25/24 Exam# [id number] Ordering Dr: Suki Blackburn MD EXAM: SCRN [...] be mailed to the patient. Reading Location: [id number] CC: Dr. Joe Waters MD; Dr. Suki Flores MD ~ Senior Engineering Tech: Signed [facility] SCRN MAMM (CAD)W/ANNETTE BILATo n 09-25-2024 SCRN MAMM (CAD)W/ANNETTE BILAT [facility] Imaging Services [address] [place], [place] [address] SCRN MAMM (CAD)W/ANNETTE BILAT MR#: [id number] Acct: [id number] Name: HARITHA REESE Rep #: [id number] : 1960 F 63 From: Samreen Contreras i, MD PCP: Dr. Joe Waters MD Status: [facility] Study: SCRN MAMM (CAD)W/ANNETTE BILAT Date of Exam: 09/16 Exam# [id number] Ordering Dr: Suki Flores EXAM: SCRN MAMM [...] be mailed to the patient. Reading Location: [id number] CC: Dr. Joe Waters MD; Dr. Suki Flores MD Senior Engineering Tech: Signed Normal [facility] Joinery Setter Out Office Visit Reporton 08-03-2024 Joinery Setter Out Office Visit Report [facility] [address], [address] [place] [address] OFFICE VISIT Date of Service: 08/03/24 MR#: [id number] Acct: [id number] Name: HARITHA REESE Rep #: [id number] : 1960 Provider: Dr. 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 Required: No Is patient in pain?: No [...] safe at home: Yes additional social history: [employer] Patient is a [employer] History 2 Elective abortions Hx Para 2 [...] acute distress, well developed and well groomed HENIA Head: normal to inspection and normocephalic Ears: hearing grossly normal bilaterally and external ears normal Nose: external nose normal Face and sinus: normal facial exam Neck Neck: normal visual inspection, full ROM and no lymphadenopathy Thyroid: thyroid normal Chest Chest palpation inspection: normal inspection of the chest Breast inspection: normal inspection of the breasts and normal (more content not included)... Normal [facility] Cervical or vaginal specimen microscopic examination by liquid based cytology (reportOrdered By: Suki Flores on 08-01-2023 Cytology report Cyto stain.thin prep Doc (Cvx/Vag) Comment . [facility] Comment on above: Criteria not met, HP V Genotype not performed.Performed at: - [facility] [id number] Director: Emily Enciso MD, Phone: [phone] at: = - [facility] [id number] Director: Emily Enciso MD, Phone: [phone] Cervical or vagninal specime n microscopic examination by cytology stain (reported asOrdered By: Suki Flores on 08-01-2023 Cytology report Cyto stain Doc (Cvx/Vag) Comment . [facility] Comment on above: The Pap smear is [...] DNA Probe+sig amp Ql (Cvx) Negative Negative [facility] Comment on above: This nucleic acid am plification test detects fourteen high-risk HPV types (16,18,31,33,35,39,45,51,52,56,58,59,66,68)without differentiation. Laboratory - CytologyOrdered By: Suki Flores on 08-01-2023 Transit Operations Supervisor Cyto stain Nom (Cvx/Vag) [ID] Comment . [facility] Comment on above: Paulette Conley, Cytotec hnologist (ASCP) Laboratory - Miscellaneous t estsOrdered By: Suki Flores on 08-01-2023 Service comment (Unsp spec) [Interp] . . [facility] Thin prep Papanicolaou smear with manual screeningOrdered By: Suki Flores on 08-01-2023 Thin prep Papanicolaou smear with manual screening Comment . [facility] Comment on above: NEGATIVE FOR INTRAEP ITHELIAL [...] on pathology results. - Return to physician pediatric assistant in 1 week. Procedure Code(s): --- Professional --- 46563, Colonoscopy, flexible; with removal of tumor(s), polyp(s), or other lesion(s) by snare technique 38746, Moderate sedation; each additional 15 minutes intraservice time G0500, Moderate sedation services provided by the same physician or other qualified health healthcare administrator performing a gastrointestinal endoscopic service that sedation supports, requiring the presence of an independent trained observer to assist in the monitoring of the patient's level of consciousness and physiological status; initial 15 minutes of intra-service time; patient age 5 years or older (additional time may be reported with 31134, as appropriate) Diagnosis Code(s): --- Professional --- Z12.11, Encounter for screening for malignant neoplasm of colon D12.5, Benign neoplasm of sigmoid colon K64.8, Other hemorrhoids CPT copyright 2020 [employer]. All rights reserved. The codes documented in this report are preliminary and upon rn iv therapy review may be revised to meet current compliance requirements. Attending Participation: I personally performed the entire procedure. Scope In: 7:56:14 AM Scope Out: 8:18:36 AM MD Lucio Plasencia MD 10/14/2022 8:23:10 AM This report has been signed (more content not included)... [facility] HISTORY PHYSICALon HISTORY PHYSICAL HNO ID: [id number] Author: Lucio Oneil MD Service: General Surgery [...] or revisions (more content not included)... [facility] NURSING PROGon 10-14-2022 NURSING PROG HNO ID: [id number] Author: Nicole Montelongo RN Service: ? Author [...] procedure and recommendations. Nicole Montelongo RN [facility] SURGICAL PATHOLOGYon 023 CASE REPORT [facility] Comment on above: Order Comment: Speci men Type: TISSUE SPECIMEN Ordering Facility: [facility] Address: [address] [place] [address] Result Comment: Surg [facility] Pathology Report Case: [id number] Authorizing Provider: Lucio Oneil MD Collected: 10/14/2022 08:13 AM Ordering Location: Ambulatory Surgery Received: 10/14/2022 01:45 PM Pathologist: Romel Herman MD Specimen: SIGMOID COLON POLYP Performed By: #### S #### [facility] CLIA [id number] [address] OF [facility] CLINICAL HISTORY 6 Normal [facility] Comment on above: Order Comment: Speci men Type: TISSUE SPECIMEN Ordering Facility: [facility] Address: [address] [place] [address] Performed By: #### S #### [facility] CLIA [id number] [address] STATES OF [facility] FINAL DIAGNOSIS [facility] Comment on above: Order Comment: Speci men Type: TISSUE SPECIMEN Ordering Facility: [facility] Address: [address] [place] [address] Result Comment: A. S igmoid colon, polyp, biopsy: -Tubular adenoma Performed By: #### S #### [facility] CLIA [id number] [address] STATES OF [place] FINAL PERFORMING LAB [facility] Comment on above: Order Comment: Speci men Type: TISSUE SPECIMEN Ordering Facility: [facility] Address: [address] [address] Result Comment: Diag nostic interpretation performed at [facility], [address] [place] [address] CLIA# [id number] Speech Teacher: Ronni Beltran M.D. Performed By: #### S #### [facility] CLIA [id number] [address] [place] [address] OF [place] GROSS DESCRIPTION Normal [facility] Comment on above: Order Comment: Speci men Type: TISSUE SPECIMEN Ordering Facility: [facility] Address: [address] [place] [address] Result Comment: A. S IGMOID COLON POLYP Received in formalin is one piece of harrell, soft tissue measuring 0.2 x 0.2 x 0.2 cm. Totally submitted in one cassette. Gross examination performed at [address] October 14, 2022 10:18 PM Performed By: #### S #### [facility] CLIA [id number] [address] [place] [address] OF [place] CNOVon 09-23-2022 CNOV Office Visit (INTMWS) HARITHA REESE ([id number]) 1960 F Date Time Provider Department 09/23/22 [...] visit, urgent care or similar only and PRESCHOOL ASSISTANT PRINCIPAL: [facility] Last seen:05/2022 Labwork:05/2022 ER/Hospitalization:n o Outside records:care everywhere PRESCHOOL ASSISTANT PRINCIPAL: Dr Flores Colonoscopy: Dr Oneil has ordered prep. Completed: no it is scheduled. Notes generally in good health. She is active, weight is stable. Tries to eat a healthy diet. Notes intermittent constipation, 3-4 times per year helped with Miralax. No muscle crams at times. Had labwork at [facility] May 2022. Lab work [facility] June 03, 2022. BUN 23 creatinine 1.07 calcium 8.7 total cholesterol 209 triglycerides 145 HDL 53 LDL 127 VLDL 29 sodium 139 potassium 3.7 chloride 103 CO2 29 gap 7 estimated GFR 56 hemoglobin A1c 5.4% TIBC 347 iron 40-low iron saturation 11.5 low, ferritin 65. Labs ordered by PRESCHOOL ASSISTANT PRINCIPAL. Notes not taking iron due to concern [...] Special scr (more content not included)... [facility] CNOVon 09-02-2022 CNOV Office Visit (GENSWS) HARITHA REESE ([id number]) 1960 F Date Time Provider Department 09/02/22 [...] If you do not have a responsible chair car driver (family member or friend) with you [...] TUNNEL LIG/TRNSX (more content not included)... [facility] Thin prep Papanicolaou smear with manual screeningOrdered By: Dr. Flores on 06-05-2022 Thin prep Papanicolaou smear with manual screening Normal genital ottoniel isolated [facility] Gram stain for investigation of transfusion reactionOrdered By: Dr. Flores on 06-04-2022 Microscopic observation Gram stain Nom (Unsp spec) [facility] Basophil percentageOrdered B y: Dr. Flores on 06-03-2022 Chloride [Moles/Vol] 103 mmol/L 98-107 [facility] Cholesterol [Mass/Vol] 209 mg/dL <200 [facility] Comment on above: <200 mg/dL Desirable 200-240 mg/dL Borderline >240 mg/dL High Risk Glucose [Mass/Vol] 102 mg/dL 74-106 [facility] Comment on above: Fasting Glucose resu lt from 100 to 125 mg/dL suggests IMPAIRED HOMEOSTASIS per A.D.A. criteria. Potassium [Moles/Vol] 3.7 mmol/L 3.5-5.1 [facility] Sodium [Moles/Vol] 139 mmol/L 136-145 [facility] Triglyceride [Mass/Vol] 145 mg/dL <199 [facility] Comment on above: The drugs N-Acetylcy steine and Metamizole may falsely depress this assay.Serum Triglycerides Reference Interval Normal <150 mg/dL Borderline high 150 - 199 mg/dL High 200 - 499 mg/dL Very High > or = 500 mg/dL Iron measurement (mass/mass) Ordered By: Dr. Flores on 06-03-2022 Iron (Unsp spec) [Mass/Mass] 40 ug/dL 50-170 [facility] Laboratory - Chemistry and C hemistry - challengeOrdered By: Dr. Flores on 06-03-2022 CO2 [Moles/Vol] 29.0 mmol/L 21.0-32.0 [facility] Cobalamin (Vitamin B12) [Mass/Vol] 1103 pg/mL 211-911 [facility] Urea nitrogen/Creatinine [Mass ratio] 21.5 mg/mg 10-20 [facility] No Panel InformationOrdered By: Dr. Flores on 06-03-2022 Estimated GFR (MDRD) Amer 67 mL/min >60 [facility] Comment on above: GFR Calc Estimated GFR (MDRD) Non-Af Amer 56 mL/min >60 [facility] Comment on above: Non- GFR Calc Total Iron Binding Capacity 347 ug/dL 250-450 [facility] Serum or plasma calcium hermann urement (mass/volume)Ordered By: Dr. Flores on 06-03-2022 Calcium [Mass/Vol] 8.7 mg/dL 8.5-10.1 [facility] Serum or plasma cholesterol in HDL measurement (mass/volume)Ordered By: Dr. Flores on 06-03-2022 Cholesterol in HDL [Mass/Vol] 53 mg/dL >40 [facility] Comment on above: The drugs N-Acetylcy steine and Metamizole may falsely depress this assay. Reference Range HDL <40 mg/dL Low HDL Cholesterol HDL >or= 60 mg/dL High HDL Cholesterol Serum or plasma cholesterol in VLDL measurement (mass/volume)Ordered By: Dr. Flores on 06-03-2022 Cholesterol in VLDL [Mass/Vol] 29 mg/dL 5-40 [facility] Serum or plasma creatinine m easurement (mass/volume)Ordered By: Dr. Flores on 06-03-2022 Creatinine [Mass/Vol] 1.07 mg/dL 0.55-1.02 [facility] Comment on above: The validity of the calculated GFR & GFRAA in patients over 70 years has not been determined. Clinical correlation is essential. Serum or plasma ferritin silvia surement (mass/volume)Ordered By: Dr. Flores on 06-03-2022 Ferritin [Mass/Vol] 65 ng/mL 8-252 [facility] Serum or plasma iron saturat ion measurement (mass fraction)Ordered By: Dr. Flores on 06-03-2022 Iron saturation [Mass fraction] 11.5 % 15.0-55.0 [facility] Serum or plasma low density lipoprotein (LDL) cholesterol measurement (mass/volume)Ordered By: Dr. Flores on 06-03-2022 Cholesterol in LDL [Mass/Vol] 127 mg/dL 0-130 [facility] Serum or plasma urea nitroge n measurement (mass/volume)Ordered By: Dr. Flores on 06-03-2022 Urea nitrogen [Mass/Vol] 23 mg/dL 7-18 [facility] Thin prep Papanicolaou smear with manual screeningOrdered By: Dr. Flores on 06-03-2022 Thin prep Papanicolaou smear with manual screening 7 5-15 [facility] Whole blood hemoglobin A1c/t otal hemoglobin ratio (mass fraction)Ordered By: Dr. Flores on 06-03-2022 HbA1c (Bld) [Mass fraction] 5.4 % 3.8-5.6 [facility] Comment on above: Normal < 5.7 % Predi abetic 5.7 - 6.4 % Diabetic >or= 6.5 % Please note range changes. CORONAVIRUS 2019 BY PCRon SARS-CoV-2 (COVID-19) RNA BALJIT+probe Ql (Unsp spec) Detected Abnormal Not Detected [facility] Comment on above: Result Comment: [...] patient management decisions. Fact sheet for providers: https://www.fda.gov/media/054140/download Fact sheet for patients: https://www.fda.gov/media/343053/download This test has received FDA Emergency Use Authorization (EUA) and has been verified by [facility] ([facility]). This test is only authorized for the duration of time that circumstances exist to justify the authorization of the emergency use of in vitro diagnostic tests for the detection of SARS-CoV-2 virus and/or diagnosis of COVID-19 infection under section 564(b)(1) of the Act, 21 U.S.C. 360bbb-3(b)(1), unless the authorization is terminated or revoked sooner. [facility] is certified under CLIA-88 as qualified to perform high complexity testing. Testing is performed in the [facility] laboratories located at [address] [place] [address]. Performed By: #### C OV19 #### [address] [place] [address] Covid 19 Resultson 1 SARS-CoV-2 (COVID-19) RNA [...] You may also be contacted by the [facility] to see if any of [...] or Naproxen (Aleve) can also be used. Wewv-skc-kniyfqp cough and cold medicines can be used according to the instructions on the package. Some jnvh-uon-muzzqsr medicines also contain acetaminophen. Make sure you [...] water are not available, use alcohol-based hand monitor and storage bin tender. Avoid touching your eyes, nose, and mouth [...] for 24 alphonso (more content not included)... [facility] CORONAVIRUS 2019 BY PCRon DATE OF SYMPTOM ONSET [YYYYMMDD]? [id number] [facility] Comment on above: Performed By: #### C OV19 #### [facility] [address] [place] [address] Lab Specimen Source Nasal, Nasopharyngeal [facility] Comment on above: Performed By: #### C OV19 #### [facility] [address] [place] [address] Provider Note - ED v3on 10-2 Provider [...] known past surgical history aside from BTL. PRESCHOOL ASSISTANT PRINCIPAL: Is : no Is : no CRITICAL [...] taking Mucinex without much relief; no other nlzj-rpq-ozfrphi medications or home remedies for symptom management. [...] Musculoskeletal: Grossly normal; appropriate for age. Integumentary: [place], warm, dry, and Intact. No rashes or [...] sinusitis, but reviewed other potential etiologies, and MANAGEMENT CONSULTING swab obtained (using proper PPE) for COVID-19 testing to err on the side of caution. Due to severity and duration of sxs, will begin antibiotic treatment with Augmentin; rx for Diflucan sent, per pt request - can take at first sign of yeast infection. (more content not included)... Normal [facility] Vital Signs Date Time Vital Sign Value Performing Clinician Faci lity 01-14-2025 10:31-0400 Body height 162.[address] Joe Waters MD Work Phone: 2(747)420-940791 [place] [address] 01-14-2025 10:31-0400 Body mass index (BMI) [Ratio] 24.4 kg/m2 Dr. Joe Waters MD Work Phone: 3(736)131-482191 [place] [address] 01-14-2025 10:31-0400 Body weight 64.[address] Joe Waters MD Work Phone: 9(154)678-551791 [place] [address] 01-14-2025 10:31-0400 Diastolic blood pressure 76 mm[Hg] Dr. Joe Waters MD Work Phone: 7(221)359-254791 [place] [address] 01-14-2025 10:31-0400 Systolic blood pressure 122 mm[Hg] Dr. Joe Waters MD Work Phone: 9(004)910-921391 [place] [address] 08-03-2024 13:30-0400 Body height 162.[address] Joe Waters MD Work Phone: 6(013)182-697691 [place] [address] 08-03-2024 13:30-0400 Body mass index (BMI) [Ratio] 24.4 kg/m2 Dr. Joe Waters MD Work Phone: 6(915)500-454191 [place] [address] 08-03-2024 13:30-0400 Body weight 64.[address] Joe Waters MD Work Phone: 2(495)876-200391 [place] [address] 08-03-2024 13:30-0400 Diastolic blood pressure 84 mm[Hg] Dr. Joe Waters MD Work Phone: 0(648)471-440491 [place] [address] 08-03-2024 13:30-0400 Systolic blood pressure 125 mm[Hg] Dr. Joe Waters MD Work Phone: 4(060)155-753991 [place] [address] 08-01-2023 10:00-0400 Body height 162.[address] Joe Waters Work Phone: 1(957)429-354091 [place] [address] 08-01-2023 09:54-0400 Body mass index (BMI) [Ratio] 25.5 kg/m2 Dr. Joe Waters Work Phone: 3(345)012-199191 [place] [address] 08-01-2023 09:54-0400 Body weight 67.[address] Joe Waters Work Phone: 5(896)779-821391 [place] [address] 08-01-2023 09:54-0400 Diastolic blood pressure 73 mm[Hg] Dr. Joe Waters Work Phone: 3(004)842-496691 [place] [address] 08-01-2023 09:54-0400 Systolic blood pressure 110 mm[Hg] Dr. Joe Waters Work Phone: 6(960)315-187491 [place] [address] 03-21-2023 09:16-0500 Body height 162.[address] Joe Waters Work Phone: 7(643)510-612291 [place] [address] 03-21-2023 09:10-0500 Body mass index (BMI) [Ratio] 27.3 kg/m2 Dr. Joe Waters Work Phone: 5(931)513-562491 [place] [address] 03-21-2023 09:10-0500 Body weight 72.[address] Joe Waters Work Phone: 5(365)986-915491 [place] [address] 03-21-2023 09:10-0500 Diastolic blood pressure 84 mm[Hg] Dr. Joe Waters Work Phone: 2(336)020-577391 [place] [address] 03-21-2023 09:10-0500 Systolic blood pressure 126 mm[Hg] Dr. Joe Waters Work Phone: 1(584)686-658691 [place] [address] 06-03-2022 08:00-0500 Body height 162.56 cm No Primary Care Physician [facility] 06-03-2022 08:00-0500 Body mass index (BMI) [Ratio] 27.9 kg/m2 No Primary Care Physician [facility] 06-03-2022 08:00-0500 Body weight 73.93 kg No Primary Care Physician [facility] 02-13-2021 16:14-0400 Body height 162.5 cm Text Entry Free [facility] 02-13-2021 16:14-0400 Body temperature 98.6 [degF] Text Entry Free [facility] 02-13-2021 16:14-0400 Diastolic blood pressure 82 mm[Hg] Text Entry Free [facility] 02-13-2021 16:14-0400 Heart rate 76 /min Text Entry Free [facility] 02-13-2021 16:14-0400 Respiratory rate 16 /min Text Entry Free [facility] 02-13-2021 16:14-0400 SaO2% (BldA) [Mass fraction] 96 % Text Entry Free [facility] 02-13-2021 16:14-0400 Systolic blood pressure 130 mm[Hg] Text Entry Free [facility] Encounters Encounter Date Encounter Type Care Provider Facility Start: 02-01-2025 ambulatory Fernanda Kohli NP Facil ity:[facility] Start: 01-14-2025 End: 01-14-[address] Suki Flores MD -[facility] Start: 01-14-2025 End: 01-14-[address] Joe Waters MD Work Phone: [facility] Start: 09-25-2024 End: 09-25-[address] Joe Waters MD Work Phone: [facility] Work Phone: Start: 09-25-2024 End: 09-25-[address] Suki Flores MD -[facility] Work Phone: Start: 09-25-2024 End: 09-25-2024 ambulatory Suki Flores Facility:[facility] Start: 08-03-2024 Encounter for gynecological examination (general) (routine) without abnormal findings Suki Flores [facility] Start: 08-03-2024 End: 08-03-[address] Suki Flores MD -[facility] Work Phone: Start: 08-03-2024 End: 08-03-[address] Suki Flores MD [facility] Start: 08-03-2024 End: 08-03-2024 ambulatory Joe Waters Facility:[facility] Start: 08-01-2023 End: 08-01-[address] Joe Waters Work Phone: [facility] Work Phone: Start: 08-01-2023 End: 08-01-[address] Joe Waters Work Phone: [facility]-Laboratory, Specimen Work Phone: Start: 08-01-2023 End: 08-01-[address] Joe Waters Work Phone: [facility] Work Phone: Start: 03-21-2023 End: 03-21-[address] Joe Waters Work Phone: [facility] Work Phone: Start: 03-21-2023 End: 03-21-[address] Joe Waters Work Phone: [facility]Laboratory[facility] Specimen Work Phone: Start: 03-21-2023 End: 03-21-[address] Joe Waters Work Phone: [facility] Work Phone: Start: 02-10-2023 End: 02-10-[address] Joe Waters Work Phone: [facility] Work Phone: Start: 10-27-2022 End: 10-27-2022 ambulatory Jimi Olivera PA-C Work Phone: General Surgery Comment on above: Tubular adenoma (Alvina sanjay Dx) Start: 10-27-2022 End: 10-27-2022 Telemedicine consultation with patient Jimi Olivera PA-C Work Phone: [facility] Start: 10-14-2022 End: 10-14-2022 ambulatory JOE WATERS Facility:[facility] Start: 09-23-2022 End: 09-24-2022 ambulatory [facility] Facility:[facility] Start: 09-23-2022 Encounter for stas l adult medical examination without abnormal findings [facility] Start: 09-02-2022 End: 09-03-2022 ambulatory LUCIO ONEIL Facility:[facility] Start: 06-17-2022 End: 06-17-2022 ambulatory No Primary Care Physician [facility] Work Phone: Start: 06-17-2022 End: 06-17-2022 Patient encounter procedure No Primary Care Physician [facility] Start: 06-03-2022 End: 06-03-2022 ambulatory No Primary Care Physician [facility] Work Phone: Start: 06-03-2022 End: 06-03-2022 Patient encounter procedure No Primary Care Physician [facility] Start: 06-03-2022 End: 06-03-2022 Patient encounter procedure No Primary Care Physician [facility] Start: 02-13-2021 End: 02-13-2021 Emergency department patient visit Bailey Miguel [facility] 01 Procedures Date Procedure Procedure [...] Activity Detail Author Start: 10-15-2027 Colonoscopy COLONOSCOPY [facility] Start: 10-15-2027 COLORECTAL CANCER SCREENING COLORECTAL CANCER SCREENING [facility] Start: 04-18-2024 Mammography MAMMOGRAM [facility] Comment on above: Postponed from 06/07 (Postponed To Appropriate Date) Start: 04-18-2023 HPV TESTING HPV TESTING [facility] Comment on above: Postponed from 03/24 (Postponed To Appropriate Date) Start: 12-17-2022 Influenza vaccination INFLUENZA (#1) [facility] Start: 06-03-2022 Patient referral [facility] Work Phone: Start: 03-24-2020 PAP TESTING PAP TESTING [facility] Start: 10-18-2007 COLOGUARD (FIT-DNA) COLOGUARD (FIT-D NA) [facility] Start: 10-18-[address] COLONOGRAPHY [facility] Start: 10-18-2007 DIABETES SCREEN DIABETES SCREEN [facility] Start: 10-18-2007 FECAL OCCULT BLOOD FECAL OCCULT BLOO D [facility] Start: 10-18-2007 LIPID SCREEN LIPID SCREEN [facility] Start: 10-18-[address] [facility] Start: 1981 Urine microalbumin profile DTAP,TDAP,TD (1 - Tdap) [facility] Start: 1980 HEPATITIS C SCREENING HEPATITIS C [facility] Start: 1980 HIV SCREENING HIV SCREENING [facility] Start: 04-19-1963 COVID-19 VACCINE (#1) COVID-19 VACCI NE (#1) [facility] CBC W Auto Different ial panel - Blood [facility] Hemoglobin A1c/Hemoglobin.total in Blood [facility] Lipid 1996 panel - S darling or Plasma [facility] MG Breast - bilatera l Screening [facility] Patient referral [facility] Work Phone: Thyroid stimulating hormone measurement [facility] Immunizations Immunization Date Immunization Notes Care Provider [place] [facility] 06-11-2021 zoster vaccine recombinant Jimi Burnham PA-C Work Phone: [facility] Work Phone: 04-07-2021 zoster vaccine recombinant Jimi Jarod PA-C Work Phone: [facility] Work Phone: 09-06-2013 measles, mumps and rubella virus vaccine Jimi Jarod PA-C Work Phone: [facility] Work Phone: 03-29-2012 influenza virus vaccine, whole virus Jimi Burnham PA-C Work Phone: [facility] Work Phone: Payers Date Payer Category Payer Self-pay [id number] 2022 Medicaid [id number] 2022 Medicaid [place] MED[place]ID [employer] [employer] [facility]ICAID [facility] [id number] 2022-Present [phone] [address] [place] [id number] Medicaid [id number] Unknown [employer] [place] [employer] Unknown AN[employer] . [id number] Unknown [id number] Unknown [id number] Unknown [id number] Unknown [id number] Unknown [id number] Unknown [id number] Social History Date Type Detail Facility [facility] Start: 06-03-2022 End: 08-01-2023 Tobacco smoking consumption unknown [facility] Start: 1960 Sex Assigned At Female [facility] Start: 02-08-2011 End: 08-03-2024 Tobacco smoking status NHIS Never smoked tobacco [facility] Work Phone: Start: 02-08-2011 Tobacco use and exposure Smokeless tobacco non-user [facility] Work Phone: Start: 10-14-2022 Alcohol intake Current drinke r of alcohol (finding) [facility] Start: 09-02-2022 End: 10-14-2022 History of Social function [facility] Work Phone: Start: 09-02-2022 End: 10-14-2022 Tobacco use panel [facility] Work Phone: Adult Depression Screening Assessment 0 [facility] Work Phone: Start: 09-23-2022 Alcohol Comment 0-1 [facility] Start: 1960 Sex Assigned At Not on file [facility] Clinical Notes 09-02-2022 to 01-14-2025 Note Date & Type Note Facility 01-14-2025 Progress note [facility] 08-03-2024 Evaluation note Diagnosis Onset Date Resolution Climacteric acute August 03 025 1:19pm Dyspareunia chronic August 03 025 1:19pm Encounter for routine gynecological examination noneactive August 03, 2024 1:19pm [facility] Work Phone: 1(875) 590-320404-15-2024 NotePap Smear Specimen AdequacyApril 2023 12:15pmComment.Satisfactory for evaluation. No endocervical component is identified.[facility] INTER[facility]ACED A#[id number] MetroHealth SystemComment on above:Satisfactory for evaluation. No endocervical component is identified. 10-27-2022 NoteHNO ID: [id number] Author: Jimi Olivera PA-C Service: ? Author Type: Physician Test Engine Mechanic Type: Progress Notes Filed: 10/29/2022 2:56 PM [...] UP VISIT - ENDOSCOPY NAME: Haritha Kelly [facility] NO.: [id number] DATE OF SERVICE: 10/27/2022 : 1960 REFERRING [...] and communicating results to the patient/family/caregiver. [facility] History of Present illness Narrative* Jimi Olivera PA-C - 10/27/2022 10:59 AM EDT [...] VISIT - ENDOSCOPY NAME: Haritha Kelly Hugh [facility] NO.: [id number] DATE OF SERVICE: 10/27/2022 : 1960 REFERRING [...] patient/family/caregiver. Jimi Olivera PA-C documented in this encounterKindred Healthcare06-08-2023 NoteHNO ID: [id number] Author: Laine Hayden APRN.COMMERCIAL ROOFER Service: ? Author Type: Nurse Specialist Type: [...] visit, urgent care or similar only and PRESCHOOL ASSISTANT PRINCIPAL: [facility] Last seen:05/2022 Labwork:05/2022 ER/Hospitalization:no Outside records:care everywhere PRESCHOOL ASSISTANT PRINCIPAL: Dr Flores Colonoscopy: Dr Oneil has ordered prep. Completed: no it is scheduled. Notes generally in good health. She is active, weight is stable. Tries to eat a healthy diet. Notes intermittent constipation, 3-4 times per year helped with Miralax. No muscle crams at times. Had labwork at [facility] May 2022. Lab work [facility] June 03, 2022. BUN 23 creatinine 1.07 calcium 8.7 total cholesterol 209 triglycerides 145 HDL 53 LDL 127 VLDL 29 sodium 139 potassium 3.7 chloride 103 CO2 29 gap 7 estimated GFR 56 hemoglobin A1c 5.4% TIBC 347 iron 40-low iron saturation 11.5 low, ferritin 65. Labs ordered by PRESCHOOL ASSISTANT PRINCIPAL. Notes not taking iron due to concern [...] - ICD9: V03.89, ICD10: Z23 deferred - [employer] COVID-19 BIVALENT VACCINE, AGE 12+ YR - TDAP VACCINE, AGE 7+ YR (ADACEL, BOOSTRIX) 7. Special screening examination for viral disease - ICD9: V73.99, ICD10: Z11.59 - HEP C AB IA W/CONF SCRN 8. Screening for HIV (human immunodeficiency virus) - ICD9: V73.89, ICD10: Z11.4 - HIV 1 2 COMBO(AG/AB),WITH REFLEX TO DIFFERENTIATION 9. Encounter for screening mammogram f (more content not included)...[facility]05-18-2023 NoteHNO ID: [id number] Author: Lucio Oneil MD Service: ? Author [...] 1 week post operatively. Lucio [facility]il III, [facility] Diagnosis Onset Date Resolution Status Climacteric acute Leg cramp acute Dyspareunia chronic Encounter for routine gynecological examination noneactive [facility] Work Phone: Evaluation note* Diagnosis Tubular adenoma- Primary Benign neoplasm of unspecified site documented in this encounter [facility]* Diagnosis Onset Date Resolution Status Climacteric acute Endocervical polyp acute Postmenopausal bleeding acut e [facility] Work Phone: Evaluation note* Diagnosis Onset Date Resolution Status Climacteric acute Dyspareunia chronic Encounter for routine gynecological examination noneactive [facility] Work Phone: Evaluation note* Diagnosis Onset Date Resolution Status Admit Date Postmenopausal bleeding resolved S epteer 2024 10:29am [facility] Work Phone: Hospital Discharge instructionsAmbulatory Orders* General Surgery Location: None Selected [facility] Work Phone: Progress note Author Fernanda Kohli [facility] Note Date/Time January 14, 2025 10:48am [facility] [address] [place] [address], [address] [place] [address] OFFICE VISIT Date of Service: 01/14/25 MR#: [id number] Acct: [id number] Name: HARITHA REESEN Rep #: [id number] : 1960 Provider: MISHA Kohli Age/Sex: 64/F Location: [facility] [place] Status: Signed Intake Vital Signs 08/03/24 13:30 01/14/25 10:31 Height 5 ft 4 in 5 ft 4 in Weight: 142 lb 8 oz 142 lb 7 oz BMI 24.4 24.4 BP 125/84 H 122/76 H Intake Visit Reasons: POST MENOPAUSAL BLEEDING Chief Complaint: EMB Solution Engineer Required: No Is patient in pain?: No Allergies codeine Allergy (Unknown, Verified 01/14/25 10:41) Unknown Sulfa (Sulfonamide Antibiotics) Allergy (Unknown, Verified 01/14/25 10:41) Unknown Medications ?Medication ?Instructions ?Recorded ?Confirmed ?Type omega-3 fatty acids 1,000 mg 1,000 mg PO DAILY 9 01/14/25 History capsule (Fish Oil Concentrate) multivitamin,fg-ymga-anvilfsy 1 tab PO DAILY 11/26/19 01/14/25 History [...] safe at home: Yes additional social history: [employer] Patient is a [place] History 2 Elective abortions Hx Para 2 [...] Postmenopausal bleeding N95.0 CPT Codes Endometrial Biopsy (50868) Assessment and Plan Assessment and Plan (1) [...] 1049 <Electronically signed by Fernanda newman NP MANAGEMENT CONSULTING-C> Date _ Fernanda Kohli NP MANAGEMENT CONSULTING-C Cosigner Signature: Date (if applicable) CC: ~ [facility] Work Phone: Reason for referral (narrative)No reason for referral information availableWTwin City Hospital Work Phone: Summary Purpose Family History No Family History Records Found Relationship Condition Age at Onset Recorded Date/T singh father Diabetes mellitus Unknown Advance Directives No Advanced Directives Records FoundNo Advanced Directives Records FoundNo Advanced Directives Records Found Chief Complaint and Reason for Visit Chief Complaint Annual (PHARMACY BUYER) SCREENING Reason for Visit Climacteric Leg cramp Dyspareunia Encounter for routine gynecological examination Chief Complaint Annual (PHARMACY BUYER) SCREENING ABNORMAL MAMMOGRAM Reason for Visit Climacteric Leg cramp Dyspareunia Encounter for routine gynecological examination Chief Complaint N95.0 EMB Reason for Visit Climacteric Endocervical polyp Postmenopausal bleeding Chief Complaint Annual (PHARMACY BUYER) Reason for Visit Climacteric Dyspareunia Encounter for routine gynecological examination Chief Complaint Admit Date Annual (PHARMACY BUYER) August 03, 2024 1:1 9pm screening mammogram [...] section and content) DATE CREATED AUTHOR 02/18/2021 [facility] DATE CREATED AUTHOR AUTHOR'S ORGANIZ ATION 10/30/2022 [facility] DATE CREATED AUTHOR AUTHOR'S ORGANIZ ATION 01/30/2025 [facility] Care Teams (unrecognized sec tion and [...] Physician Primary Care Provider Active Dr. 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 Joe Waters MD Primary Care Provider Active Team Status: Inactive Member Role Status Dates Dr. Joe Waters MD Primary Care Provider, Referr ing Provider Active Fernanda Kohli MANAGEMENT CONSULTING, MANAGEMENT CONSULTING-C Attending Provider Active Team Status: Inactive Member Role Status Dates Dr. Suki Flores MD Attending Provider, Referr ing Provider Active Dr. Joe Waters MD Primary Care Provider Active Team Status: Inactive Member Role Status Dates Dr. Joe Watres MD Primary Care Provider Active Fernanda Kohli MANAGEMENT CONSULTING, MANAGEMENT CONSULTING-C Attending Provider, Referring Provider Active Team Status: Inactive Member Role Status Dates Dr. Joe Waters MD Primary Care Provider, Referr ing Provider Active Dr. Suki Flores MD Attending Provider Active Team Status: Inactive Member Role Status Dates Dr. Joe Waters MD Primary Care Provider Active Dr. Suki Flores MD Attending Provider, Referr ing Provider Active Team Status: Active Member Role Status Dates Dr. Jeo Waters MD Primary Care Provider Active Team [...] End: January 14, 2025 Fernanda Kohli NP, MANAGEMENT CONSULTING-C Attending physician Active Start: January 14, 2025 End: January 14, 2025 Team Status: Active Member Role/Relationship Status Dates Dr. Joe Waters MD Primary care physician Active Start: January 14, 2025 Dr. Suki Flores MD Attending physician Active Start: January 14, 2025 Dr. Suki Flores MD Referring Provider Active Start: January 14, [...] or prosecute any alcohol or drug abuse patient.[facility] Reason for Visit (unrecogniz ed section and [...] BE BASED ON THE PRIMARY CLINICAL RECORDS. [facility]. provides no warranty or guarantee of the accuracy or completeness of information in this document.
== END | disposition home or self-care (01) ==
LOC: US 15:59
PROVIDERS: PCP Internal Medicine; Referring Provider Nurse Practitioner Women's Health; Visit Provider Nurse Practitioner Women's Health
DX: N95.0 Postmenopausal bleeding (principal)
CPT/HCPCS: 76830; 76856